=== PATIENT | female | born 1960 | race Caucasian/White ===

== ENCOUNTER 2017-12-21 05:27 | Day surgery (SDC) | payer OTHER, SELFPAY ==
--- NOTE | 2017-12-01 12:43 | PCM.HP.BLA ---
History and Physical DATE OF SURGERY: 12/21/2017 SCHEDULED PROCEDURE: Right Carpal Tunnel Release HISTORY OF PRESENT ILLNESS: This is a 57-year-old female who has had ongoing pain with numbness and tingling in her right hand for approximately 10 years. Patient is right-hand dominant. Patient underwent an EMG nerve conduction study exam in 2008 and did reveal carpal tunnel syndrome. Patient states the numbness and tingling has become worse and has progressed over the past several years. Her pain at rest is 2/10, 4/10 on average, and 6/10 at worst. Patient has tried Velcro cockup wrist braces in the past which were helpful initially but she has not seen any significant relief using them now. The numbness and tingling does wake her at night. Numbness and tingling isn't in the median nerve distribution including the right index, right middle, and right ring finger. She denies any trauma or injury. Patient has had previous cervical neck cyst removed in the past. Patient has also had a previous trigger finger release of the right thumb. Patient currently denies any chest pain, shortness of breath, fevers chills, recent infections. Patient has medical history pertinent for type 2 diabetes mellitus, hypertension, history of blood clot, and sleep apnea. She has had previous thyroid cancer in which a thyroidectomy in 2005. After failure of conservative measures the patient would like to proceed with a right carpal tunnel release. REVIEW OF SYSTEMS: ROS: Const: Denies anorexia, change in appetite, fever, hard of hearing, vision problems and weight change. CV: Denies chest pain, heart murmur, irregular heartbeat and peripheral vascular disease. Resp: Denies asthma, cough, pneumonia, sleep apnea, SOB, tuberculosis and wheezing. GI: Denies constipation, diarrhea, difficulty swallowing, heartburn, nausea, bloody stools and vomiting. : Genital: reports irregular menstrual periods. Urinary: denies incontinence. Musculo: Denies leg swelling, limp, trouble walking and weakness. Skin: Denies Raynaud's, history of shingles and tattoo. Neuro: Reports numbness/tingling but denies ambulatory dysfunction, dizziness and tremor. Psych: Reports anxiety, but denies depression, insomnia, mental illness and stress. Mc/Lymph: Denies anemia, bleeding/bruising tendency and past transfusion. Reviewed, no changes. PAST MEDICAL HISTORY: Advance Care Plan: No Advance Directives Effective Date: 01/06/2017 PMH: Medical Problems: Arthritis, Diabetes, Thyroid Disease, Psoriasis, Cancer, High Blood Pressure, History Of Phlebitis, Sleep Apnea Accidents: Fracture - (1996) LT ANKLE - STEPPED IN A HOLE Surgical Hx: Thyroidectomy - (2005) CANCER, [facility] LT De[employer] Release - (03/04/2009) [email or web address] Ovaries Removed, LT Heel Bone Spur RT Thumb Trigger Release - (04/01/2016) [email or web address]@[facility] Manipulation Shoulder Under Anes LT - (03/02/2017) [email or web address]@[email or web address] Anesthesia Complications: None Assistive Devices: None Reviewed, no changes. 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 Personal Habits: Cigarette Use: Never.Alcohol: Denies use.Drug Use: Denies Use.Enjoy Exercising: Exercises 1-3 X/Week. Reviewed, no changes. VITALS: Ht: 68 Wt: 214lb Wt k.070 BMI: 32.5 BP: 123/80 Pulse: 88 Resp: 16 T: 98 T: 36.7C ALLERGIES: Penicillins - Throat Swelles Shut - Anaphalactic Vancomycin MEDICATIONS: Tramadol HCL 50 mg 1-2 by mouth every 6 hours as needed pain, Effexor 225 mg 1 tab PO daily, Enalapril Maleate 10 mg 1 tab PO bid, Gabapentin 300 mg 1 cap PO qam,2 cap AT lunch,2 caps AT supper and 1 cap AT bedtime, Synthroid 50 mcg 1 tab PO daily, Farxiga 10 mg 1 tab PO daily, Metformin HCL 500 mg 1 tab PO bid, Meloxicam 15 mg 1 by mouth every day PRE-OP EXAM: General appearance:NORMAL Other: Eyes: Conjunctivae and lids: NORMAL Pupils: ERR Ears, Nose, Mouth, and Throat: NORMAL Other: Inspection of lips, teeth and gums: NORMAL Other: Neck: Examination of neck: no masses noted. Respiratory: Assessment of respiratory effort: NORMAL Other: Auscultation of lungs: clear to auscultation no wheezes, rhonchi or rales. Cardiovascular: Auscultation of heart: regular rate and rhythm, no murmurs, gallops or rubs. Exam of carotid arteries: NORMAL Other: Gastrointestinal: Exam of abdomen: soft, nontender, nondistended bowel sounds present. PHYSICAL EXAMINATION: Patient is alert and oriented ?3 in no acute distress. Patient's right hand is cool to touch without erythema. There is minimal atrophy of the right thenar eminence. Patient has decreased sensation on the right hand in the median nerve distribution. Patient has full composite fist and full extension of fingers. Full range of motion of right wrist. Patient has a positive carpal compression exam, positive Phalen's exam, and positive Tinel's at the wrist on the right. Negative Tinel's at the right elbow. Negative Spurling's bilaterally. 2 point discrimination in the median nerve distribution is 7-8 mm and 5 mm in the ulnar nerve distribution. IMAGING STUDIES: Previous EMG nerve conduction study exam was performed in 2008 which did reveal right carpal tunnel syndrome. IMPRESSION: 1. Right carpal tunnel syndrome 2. Type 2 diabetes mellitus 3. Hypertension 4. History of blood clots 5. Sleep apnea 6. Psoriasis 7. History of thyroid cancer PLAN: I did discuss and review with the patient all treatment options including surgical versus nonsurgical options. Patient does wish to proceed with the above-stated procedure. Potential risks, benefits, and complications of the procedure were discussed in detail including but not limited to , infection, nerve and blood vessel damage, persistent pain, numbness, tingling, paresthesias, blood clot, pulmonary embolism, and requirement for possible further surgery. The patient expressed full understanding and has no further questions for the doctor. Patient does agree to proceed with the above-stated procedure and has signed the surgery consent form. This dictation was created using voice recognition software. Phonetic and/or grammatical errors may exist. ___ I have re-examined the patient. There are no clinical changes since date of exam. ___ See progress notes for changes. ___ Dictated on admission Date: Time: Signature:
[2017-12-21 05:47] VITALS: BP 126/74; PULSE 86; RESP 16; TEMP 37.2; O2SAT 98; BMI 34.0
[2017-12-21 05:54] VITALS: BMI 34.0
[2017-12-21 06:11] LABS: Bedside Glucose 173 mg/dL (70-110)
--- NOTE | 2017-12-21 07:10 | OP.PCM_ITS ---
Report of Operation Date of Procedure: 12/21/17 Pre-Operative Diagnosis: Right carpal tunnel syndrome Post-Operative Diagnosis: Right carpal tunnel syndrome Surgery/Procedure Performed:: Right carpal tunnel release Description of Surgical Findings:: Complete release transverse carpal ligament insole department worker: None Type of Anesthesia:: Block,[address] Anesthesiologist: Carlos Yo Special Medications: Clindamycin Estimated Blood Loss (mL): 2 Fluids Replaced: 300 mL crystalloid Description of Procedure: Brief history operative indications: 57-year-old female who failed conservative treatment for right carpal tunnel syndrome. Patient wished to proceed with right open carpal tunnel release. After discussing risks and benefits including but not limited to blood loss, DVTs, PEs, neurovascular damage, infection, hematoma and general risk of anesthesia, the patient demonstrated understanding wish to proceed with right open carpal tunnel release Procedure: On the date of the procedure, the patient's right upper extremity was marked in the preoperative area. Patient was taken back to the operating room, where the tourniquet was placed on the right upper extremity. Patient was given light sedation. All bony prominences are identified well-padded. Anesthesia assumed control C-spine and airway and remained in control throughout the remainder the procedure. [address] block was administered by anesthesia. The right upper extremity was prepped in sterile fashion. Surgeon then scrub. Upon reentering the room, the right upper extremity was prepped in a standard orthopedic fashion. A timeout was called and everyone agreed upon the side, the site, the procedure to be performed, patient identity and antibiotics given. The incision was marked out. Incision was taken at the skin subtenons tissue fat down to fascia. Fascia was then lightly tethered until the median nerve was visible. A [place] was placed proximally and distally, and then scissors were placed proximally and distally to release the transverse carpal ligament. During the release the others were never completely closed. The [place] was then placed proximally and distally once more to verify the transverse carpal ligament had been adequately released. The wound was then copiously irrigated out with normal saline. Wound was then closed using 3-0 nylon suture. 10 cc of 50-50 mixture of 1% lidocaine and 0.5% Sensorcaine without epinephrine injection was given. Xeroform dressing was placed, sterile dressing was placed, compressive dressing was placed. Tourniquet was let down. Volar splint was placed. Patient was awakened by anesthesia and transferred to the PACU for recovery. Postoperative plan: The patient will follow up in 2 weeks for removal splint removal sutures. At that time if they are doing well they will follow-up as needed. - Complications None - Admit VTE Documentation VTE Present on Admission: No VTE Mechan Device Prophylaxis: SCD's, Thigh High ANAHY Kebede VTE Pharm Prophylaxis ordered?: No Reason prophylaxis not ordered:: Treatment Not Indicated
[2017-12-21] MEDS: Bupivacaine Mpf 0.5% 30 ML VIAL (07:25)
[2017-12-21 07:35] VITALS: BP 105/76; BP 126/74; PULSE 91; RESP 18; TEMP 36.8; O2SAT 99
[2017-12-21 07:40] VITALS: BP 107/75; BP 126/74; PULSE 87; RESP 18; O2SAT 93
[2017-12-21 07:45] VITALS: BP 112/77; BP 126/74; PULSE 86; RESP 16; O2SAT 94
[2017-12-21 07:51] VITALS: BP 111/74; BP 126/74; PULSE 81; RESP 16; TEMP 36.4; O2SAT 96
[2017-12-21 08:03] VITALS: BP 126/74
== END 2017-12-21 08:12 | disposition home or self-care (01) ==
LOC: SDC 05:28 → AC 05:29
PROVIDERS: Family Provider Family Medicine; PCP Family Medicine; Referring Provider Specialist; Visit Provider Specialist
PROC: (CPT 64721; principal; 2017-12-21 07:00)
DX: G56.01 Carpal tunnel syndrome, right upper limb (principal); E11.9 Type 2 diabetes mellitus without complications; I10 Essential (primary) hypertension; L40.9 Psoriasis, unspecified; M19.90 Unspecified osteoarthritis, unspecified site; G47.30 Sleep apnea, unspecified; F32.9 Major depressive disorder, single episode, unspecified; F41.9 Anxiety disorder, unspecified; Z79.82 Long term (current) use of aspirin; Z79.899 Other long term (current) drug therapy; Z78.0 Asymptomatic menopausal state; Z85.850 Personal history of malignant neoplasm of thyroid; Z86.718 Personal history of other venous thrombosis and embolism
CPT/HCPCS: 01810; 64721; 82962; J7120

== ENCOUNTER → 2018-11-29 08:02 | Outpatient (CLI) | payer OTHER, SELFPAY ==
--- NOTE | 2018-11-29 14:16 | NEURO_ITS ---
NCS and/or EMG Patient Report Ordering Doctor: Huber Wilhelm DATE OF SERVICE: 11/29/18 Misti Short is a 58 year old female who presents for electrodiagnostic testing of the left upper limb. She reports numbness and tingling in the left hand. Electrodiagnostic findings: Left median motor nerve demonstrates prolonged distal latency with normal amplitude and reduced conduction velocity. Normal left ulnar motor response. Borderline prolonged left median F-wave. Prolonged left median sensory latency at the wrist. Prolonged left median palmar latency. Normal left ulnar and radial sensory responses. On needle EMG, all muscles tested in the left upper limb showed no evidence of denervation with normal mo tor unit action potentials. Electrodiagnostic impression: This is an abnormal study. 1. Electrodiagnostic findings demonstrate left-sided median mononeuropathy. This is consistent with a moderate left carpal tunnel syndrome If there are any further questions, please do not hesitate to contact me
== END ==
PROVIDERS: Family Provider Family Medicine; PCP Family Medicine; Referring Provider Physician Assistant; Visit Provider Physician Assistant
DX: R20.2 Paresthesia of skin (principal)
CPT/HCPCS: 95886; 95910

== ENCOUNTER → 2018-12-05 14:45 | Outpatient (CLI) | payer OTHER, SELFPAY ==
--- NOTE | 2018-12-05 15:26 | EKG12_ITS ---
Test Reason : PRE OP Blood Pressure : / mmHG Vent. Rate : 098 BPM Atrial Rate : 098 BPM P-R Int : 148 ms QRS Dur : 066 ms QT Int : 340 ms P-R-T Axes : 033 025 045 degrees QTc Int : 434 ms Normal sinus rhythm Low voltage QRS Septal infarct , age undetermined Abnormal ECG Confirmed by EVELYN JOSHI ([id number]), avid editor LOPEZ MAZA ([id number]) on 12/08/2018 10:26:00 AM Referred By: Huber Wilhelm Confirmed By:EVELYN JOSHI
[2018-12-05 15:56] LABS: Hematocrit 46.5 % (37-47); Mean Corp Hgb Conc 32.3 g/dL (32-36); Mean Corpuscular Hgb 29.8 pg (27.0-32.0); Mean Corpuscular Volume 92.4 fL (81-99); Mean Platelet Vol. 9.9 fl (6.2-12.0); Platelet Count 301 K/mm3 (150-450); RBC Distribution Width CV 12.6 % (11.6-14.6); RBC Distribution Width SD 42.5 fl (35.1-43.9); Red Blood Count 5.03 M/mm3 (4.2-5.4); White Blood Count 9.3 K/mm3 (4.4-11.0)
[2018-12-05 16:14] LABS: Anion Gap 6 (5-15); BUN 13 mg/dL (7-18); BUN/Creat Ratio 13.2 RATIO (10-20); Calcium,Total 9.1 mg/dL (8.5-10.1); Chloride 103 mmol/L (98-107); Creatinine, Serum 0.98 mg/dL (0.55-1.02); EST Glomerular Filtration Rate 62 mL/min (>60); Est Glom Filt Rate - Afr Amer 75 mL/min (>60); Glucose 177 mg/dL (74-106); Sodium Level 137 mmol/L (136-145)
[2018-12-05 16:24] LABS: Hemoglobin A1c 7.7 % (4.2-6.3)
== END ==
PROVIDERS: Family Provider Family Medicine; PCP Family Medicine; Referring Provider Physician Assistant; Visit Provider Physician Assistant
DX: Z01.818 Encounter for other preprocedural examination (principal); Z01.810 Encounter for preprocedural cardiovascular examination
CPT/HCPCS: 36415; 80048; 83036; 85027; 93005

== ENCOUNTER → 2019-11-01 09:11 | Outpatient (CLI) | payer OTHER, SELFPAY ==
--- NOTE | 2019-11-01 09:13 | RAD_ITS ---
PROCEDURE: Fluoroscopic guided Hip Injection DATE: 11/01/2019. INDICATION: Female, 58 years old. Chronic hip pain. PHYSICIAN: Maxime Saucedo M.D. MEDICATIONS: 6 mg of BETAMETHASONE and 3 cc of 1% LIDOCAINE. 2% lidocaine administered subcutaneously for local anesthesia. ACCESS SITE: Left hip. NEEDLE: 22-gauge spinal needle. FLUOROSCOPY TIME (if supplied): (1:00) minutes/seconds FINDINGS: The risks, benefits, and alternatives to the procedure were explained to the patient. The specific risks of bleeding, infection, and neurovascular injury were detailed and accepted. Witnessed informed consent was obtained. A 22-gauge spinal needle was positioned under radiographic fluoroscopic localization. Approximately 2 cc of ISOVUE-300 instilled for localization purposes. Medication was then injected. The patient tolerated the procedure well without any immediate complications. RAD/Inj/Asp [place] Jt Should/Hip/Knee IMPRESSION: 1. Successful fluoroscopic guided hip injection. Electronically Signed: Maxime Saucedo, at 10:32 EDT , Service support ,
== END ==
PROVIDERS: PCP Family Medicine; Referring Provider Registered Nurse; Visit Provider Registered Nurse
DX: M16.12 Unilateral primary osteoarthritis, left hip (principal)
CPT/HCPCS: 20610; 77002; Q9967; J0702

== ENCOUNTER → 2021-02-11 | Outpatient (CLI) | payer OTHER, SELFPAY | END | disposition home or self-care (01) | PROVIDERS: PCP Family Medicine; Referring Provider Family Medicine; Visit Provider Family Medicine | DX: U07.1 COVID-19 (principal) | CPT/HCPCS: 87635; U0005; U0003 ==

== ENCOUNTER 2021-02-16 14:36 | Outpatient (CLI) | payer OTHER, SELFPAY ==
[2021-02-16 14:42] VITALS: BMI 32.1
[2021-02-16] MEDS: 0.9% Saline Lock 10 ML Syringe IV (14:48)
[2021-02-16 16:01] VITALS: BP 125/77; PULSE 88; RESP 16; TEMP 37.1; O2SAT 95
[2021-02-16 16:51] VITALS: BP 140/90; PULSE 84; RESP 16; TEMP 36.6; O2SAT 96
== END 2021-02-16 17:03 | disposition home or self-care (01) ==
LOC: MS3OUT 14:37 → MS3 14:38
PROVIDERS: PCP Family Medicine; Referring Provider Nurse Practitioner Adult Health; Visit Provider Nurse Practitioner Adult Health
DX: Z23 Encounter for immunization (principal); U07.1 COVID-19
CPT/HCPCS: J7050; M0245; Q0245; A4216

== ENCOUNTER → 2021-11-30 | Outpatient (CLI) | payer OTHER, SELFPAY ==
--- NOTE | 2021-11-30 13:38 | EKG12_ITS ---
Test Reason : PREOP Blood Pressure : / mmHG Vent. Rate : 088 BPM Atrial Rate : 088 BPM P-R Int : 138 ms QRS Dur : 076 ms QT Int : 384 ms P-R-T Axes : 033 005 050 degrees QTc Int : 464 ms Normal sinus rhythm Normal ECG Confirmed by EDEN PEREZ, JUAN JOSE ([id number]), department editor MINESH BARRERA ([id number]) on 12/01/2021 9:17:34 AM Referred By: DAVINA Confirmed By:JUAN JOSE HARMON MD
[2021-11-30 14:35] LABS: Mean Corp Hgb Conc 32.6 g/dL (32-36); Mean Corpuscular Hgb 30.1 pg (27.0-32.0); Mean Corpuscular Volume 92.5 fL (81-99); Mean Platelet Vol. 9.8 fl (6.2-12.0); Platelet Count 321 K/mm3 (150-450); RBC Distribution Width CV 12.7 % (11.6-14.6); RBC Distribution Width SD 43.3 fl (35.1-43.9); Red Blood Count 4.65 M/mm3 (4.2-5.4); White Blood Count 8.7 K/mm3 (4.4-11.0)
[2021-11-30 16:42] LABS: Anion Gap 7 (5-15); BUN 12 mg/dL (7-18); BUN/Creat Ratio 15.2 RATIO (10-20); Calcium,Total 9.2 mg/dL (8.5-10.1); Chloride 106 mmol/L (98-107); Creatinine, Serum 0.79 mg/dL (0.55-1.02); EST Glomerular Filtration Rate 79 mL/min (>60); Est Glom Filt Rate - Afr Amer 96 mL/min (>60); Glucose 118 mg/dL (74-106); Potassium 4.1 mmol/L (3.5-5.1); Sodium Level 141 mmol/L (136-145)
== END | disposition home or self-care (01) ==
LOC: PSN 13:26
PROVIDERS: PCP Family Medicine; Visit Provider Physician Assistant Surgical
DX: Z01.810 Encounter for preprocedural cardiovascular examination (principal)
CPT/HCPCS: 36415; 80048; 85027; 93005

== ENCOUNTER 2022-05-14 13:00 | Outpatient (RCR) | payer OTHER, SELFPAY ==
--- NOTE | 2022-04-16 13:43 | HP.PTEVAL ---
Patient's Visit Information PRABHU NEVILLE is a 61 year old F referred to Physical Therapy by Dr. Jake Kumari DO with a diagnosis of L trochanteric bursitis. Date of Evaluation: 04/16/22 Physical Therapist: Ahsan Velasquez, DPT, OCS, CSCS - Visit Plan Frequency: 3x /Week Duration: 4-6 Weeks Plan: 3x/week for 3-6 weeks. Please start with non thermal US to LK trochanteric bursa are, rollout to ITB and stretch ITB and quad and HS. progress to hip mat strength at home and then to gym based general strength for LE, core, UE machines and work to I as patient wishes to join as a member upon d/c - Subjective L hip is hurting. Laterally and posterior hurt. Insidiously. Hurting 4 years. One time unable to get off tractor but not often. It was worsening last fall. Worse in the summertime when more active. Had a family dinner when she was on feet alot. Steps are painful but not horrible. 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 Sleep: Cannot lie on left side. Seldom keeps her awake(1x in 3 months after being outside alot.). Basic aDLs are OK. Gardening is hobby and chasing grandkids and can karyna grandkids. Worse after wards. No regular exercises. had injections in hip at one point and did not help in joint. Wants to join and get program. - Pain L hip\ Pain Intensity (Out of 10): 1 Pain Intensity Range: 0, 3 - Objective No antalgia in i gait today. Trasnfers bed and chair I. steps reciprocal with one rail without discomfort today. LB AROM WFL and without pain. Hip AROM is WFL, tightness max in ITB, mod in quad/psoas, min in HS and mod in Piriformis B.Knee and ankle AROM WFL. PROM Hips symmetrical and without major limitations, IR on L hip is painful, + FADDIR, _ scour, - KAYODE. strength in hips is 3+ abd and ext, 4- flexion, no pain. knee and ankles 4/5 without pain. Tender to palpation over L trochanteric bursa area max, not as bad into ITB and not on the right. _ slump, - SLR - Balance/Special Test Scores Lower Extremity Functional Score: 71 - Goals Goal 1:: I management of torchanteric bursitis including home stretches and gym based LE and core adn general UE strength. Goal Time Frame: 4-6 Weeks Goal 2:: Patient feel pain 80% better and 1/10 at worst Goal Time Frame: 4-6 Weeks Goal 3:: Get up at work without pain Goal Time Frame: 4-6 Weeks Goal 4:: Sleep without interruption at night. Goal Time Frame: 4-6 Weeks Goal 5:: Pt feel she has a good machine workout that she can continue I with list Goal Time Frame: 4-6 Weeks - Rehabilitation Potential Physical Therapy Diagnosis: L trochanteric bursitis Rehabilitation Potential: Good - Anticipated Interventions Patient/Client Instruction: Educate patient on: Condition, Plan of Care For the Purpose of:: To decrease pain, To increase ROM, To improve nutrient delivery to tissue, To improve muscle performance and motor function, To increase tolerance to activity/condition/position, To improve ability of physical actions for home/community/work/leisure Therapeutic Exercise to Include: Strength training, Flexibilty training For the Purpose of:: To decrease pain, To decrease swelling/inflammation, To improve nutrient delivery to tissue, To improve muscle performance and motor function Manual Therapy Techniques to Include: Soft tissue mobilization For the Purpose of:: To decrease swelling/inflammation, To improve nutrient delivery to tissue Ultrasound (thermal/non thermal): Yes - nonthermal For the Purpose of:: To decrease pain, To decrease swelling/inflammation Thank you for the opportunity to evaluate your patient. For Medicare and Medicare HMO plans, please review the plan of care and approve it. It will need to be FAXED BACK to us at [phone] for Medicare purposes. For Medicare only, by signing this I certify the plan of care. Please let me know if there are questions or concerns regarding this plan of care. Physician Signature: Date:
--- NOTE | 2022-05-14 13:39 | HP.PTDCSUM ---
It has been my pleasure to treat PRABHU NEVILLE referred by Dr. Jake Kumari DO, with the diagnosis of L trochanteric bursitis for a total of 9 visit(s). Discharge Date: 05/14/22 Please see the following information for a summary of their discharge status. Subjective: I am ready to be done. [place] the machines that she will continue on her own. Pain level is 1/10 at most, still needs to loosen in the morning. Stretches really help. L hip\ Pain Intensity (Out of 10): 1 % Improvement: 95 Objective/Function: No tenderness in hip, walking normally without abnormalities Goal 1:: I management of torchanteric bursitis including home stretches and gym based LE and core adn general UE strength. Goal Progress: Goal Met Goal 2:: Patient feel pain 80% better and 1/10 at worst Goal Progress: Goal Met Goal 3:: Get up at work without pain Goal Progress: Goal Met Goal 4:: Sleep without interruption at night. Goal Progress: Goal Met Goal 5:: Pt feel she has a good machine workout that she can continue I with list Goal Progress: Goal Met Plan: d/c Discharge Comments: To continue in gym and stretch at home and contact doctor if pain returns. If there are questions or concerns regarding this patient's physical therapy, please feel free to call me at [phone]. Thank you for the referral of this patient. Sincerely, Ahsan Velasquez, DPT, OCS, CSCS Balance/Gait/Functional tests - Balance/Special Test Scores Lower Extremity Functional Score: 73
== END 2022-05-14 19:00 | disposition home or self-care (01) ==
LOC: PT 13:00
PROVIDERS: PCP Family Medicine; Referring Provider Orthopaedic Surgery; Visit Provider Orthopaedic Surgery
DX: M70.62 Trochanteric bursitis, left hip (principal); M76.32 Iliotibial band syndrome, left leg
CPT/HCPCS: 97110; 97140; 97161; 97164

== ENCOUNTER 2022-09-22 08:21 | Emergency (ER) | payer OTHER, SELFPAY ==
[2022-09-22 08:21] VITALS: BP 128/86; PULSE 80; RESP 14; TEMP 36.6; O2SAT 98; BMI 27.3
--- NOTE | 2022-09-22 09:14 | US_ITS ---
STUDY: ABDOMINAL ULTRASOUND - RIGHT UPPER QUADRANT REASON FOR VISIT: Female, 61 years old . Right upper quadrant pain. TECHNIQUE: Ultrasound evaluation of the right upper quadrant was performed with real-time and static parada-scale imaging. TECHNICAL QUALITY: Adequate. COMPARISON: None. FINDINGS: Liver: The liver measures is enlarged and 17.5 cm. There is increased echogenicity consistent with fatty infiltration. The bile ducts are within normal limits. There is hepatic color flow. The direction of portal flow is hepatopetal. Focal fatty sparing is seen in the periportal region measuring 2.7 cm x 1.6 cm x 1.1 cm. Gallbladder: Normal distended gallbladder. The gallbladder wall measures 2.0 mm. There is a negative sonographic Bliss''s sign. There is no pericholecystic fluid. There are multiple echogenic structures within the gallbladder, consistent with multiple gallstones. Common Bile Duct (C.B.D.): The common bile duct measures 4.3 mm. Pancreas: Normal size of the head, body and tail of the pancreas. There is increased echogenicity of the pancreas. There is no demonstrated pancreatic mass or cyst. Right Kidney: Normal size of the right kidney. The right kidney measures 12.2 cm x 7 cm x 5 cm. Normal renal cortex. The right cortex measures 1.6 cm. There is no demonstrated renal mass or cyst. There is no right hydronephrosis. US/Gallbladder IMPRESSION: Mild hepatomegaly and diffuse fatty infiltration of the liver with focal fatty sparing. Multiple gallstones. Electronically Signed: Maxime Saucedo MD at 10:56 EDT ,
--- NOTE | 2022-09-22 09:15 | EKG12_ITS ---
Test Reason : Blood Pressure : / mmHG Vent. Rate : 071 BPM Atrial Rate : 071 BPM P-R Int : 136 ms QRS Dur : 088 ms QT Int : 404 ms P-R-T Axes : 017 033 050 degrees QTc Int : 439 ms Normal sinus rhythm Normal ECG Confirmed by DAWN PEREZ, KIRK ([id number]), editor news MINESH BARRERA ([id number]) on 09/24/2022 1:23:31 PM Referred By: IDRIS Confirmed By:LIBERTY SEYMOUR MD
--- NOTE | 2022-09-22 09:15 | ED.VIS.GI ---
HPI HPI - GI History of Present Illness Chief Complaint: Abd Pain Informant: patient Abdominal Pain/Flank Pain Onset: Yesterday Context: Gradual Onset Timing: Continuous Quality: Aching and Dull Location: Epigastric and RUQ Worsened by: Nothing Relieved by: Nothing Nausea/Vomiting/Emesis GI Symptom: Positive for Nausea and Vomiting Quality: Positive for Nonbilious; Negative for Blood streaks, Coffee ground or Hematemesis Diarrhea/Melena/Hematochezia GI Symptom: Negative for Diarrhea, Melena or Hematochezia Associated Symptoms Associated Symptoms: Negative for Dysuria, Frequency or Hematuria Narrative Narrative: Patient presents with abdominal pain that began last night. Patient states that has gradually gotten worse. Patient states the pain is over the epigastric area and radiates to the right upper quadrant and around to her back. Patient describes the pain as dull and aching. Patient states nothing makes it better nothing makes it worse. Patient admits to some nausea and vomiting. Patient denies any diarrhea, melena, or hematochezia. Patient denies any dysuria, hematuria, or frequency. Patient denies any fevers or chills. [facility] Medical History Diabetes mellitus History of blood clots Hx of thyroid cancer Hypertension Home Medications antiarthritic combination no.2 900 mg tablet (glucosamine-chondroitin) 1 tab PO DAILY SUPPLEMENT 01/24/15 [History Last Taken Unknown] enalapril maleate 20 mg tablet (Vasotec) 20 mg PO BID BP 01/24/15 [History Last Taken 01/31/15 05:00] venlafaxine 150 mg capsule,extended release 24 hr 150 mg PO DAILY 01/24/15 [History Last Taken Unknown] amitriptyline 75 mg tablet 75 mg PO DAILY 03/01/22 [History Last Taken Unknown] gabapentin 600 mg tablet 600 mg PO Q8H 03/01/22 [History Last Taken Unknown] meloxicam 15 mg tablet 15 mg PO DAILY 03/01/22 [History Last Taken Unknown] pravastatin 80 mg tablet 80 mg PO DAILY 03/01/22 [History Last Taken Unknown] levothyroxine 137 mcg tablet (Synthroid) 137 mcg PO DAILY THYROID 09/22/22 [History Last Taken Unknown] semaglutide 2 mg/dose (8 mg/3 mL) subcutaneous pen injector (Ozempic) 2 mg subcut SA 09/22/22 [History Last Taken Unknown] Allergy/AdvReac Type Severity Reaction Status Date / Time Penicillins [PCN] Allergy Anaphylaxis Verified 09/22/22 08:22 vancomycin Allergy Anaphylaxis Verified 09/22/22 08:22 Surgical History History of carpal tunnel release of both wrists Hx of oophorectomy Hx of thyroidectomy Social History Smoking Status: Never smoker alcohol intake: never ROS ROS ED Constitutional Constitutional ED: Denies chills or fever(s) Eyes Eyes: Denies blurry vision or change in vision ENT ENT ED: Denies rhinorrhea or sore throat Cardiovascular Cardiovascular: Denies chest pain or palpitations Respiratory/Chest Respiratory/Chest: Denies cough or dyspnea Gastrointestinal Gastrointestinal: Reports abdominal pain, nausea and vomiting Genitourinary Genitourinary ED: Denies dysuria or hematuria Musculoskeletal Musculoskeletal: Reports back pain; Denies neck pain Integumentary Denies abscess or rash Neurologic Neurologic: Denies headache(s) or weakness Allergic/Immunologic Allergic/Immunologic ED: Denies mouth swelling or urticaria EXAM Physical Exam Const Vital Signs: 09/22/22 08:21 09/22/22 11:16 Temperature 97.9 F Temperature Source Temporal Pulse Rate 80 76 Respiratory Rate 14 18 Blood Pressure 128/86 H Blood Pressure Mean 100 Pulse Ox 98 100 Oxygen Delivery Method Room Air Room Air Positive well nourished and well developed General Appearance ED: well developed HEENT Reports moist mucous membranes Neck supple and no JVD Resp normal respiratory effort and clear to auscultation bilaterally Cardio regular rate, regular rhythm and no murmurs GI normal to inspection, nondistended, normoactive bowel sounds Palpation: soft and tender epigastric and RUQ; Negative for guarding or rebound tenderness present Extremity normal to inspection General Extremety ED: Negative for edema or tenderness General Extremity: Negative for edema Neuro oriented x3, CN's II-XII intact bilaterally, moves all extremities and no sensory deficits noted Sensorium / Orientation: alert Motor Exam: strength 5/5 throughout Psych mental status grossly normal Skin no rashes or lesions noted MDM MDM MDM Narrative Medical decision making narrative: Differential diagnosis includes gastritis, cholecystitis, cholelithiasis, pancreatitis, peptic ulcer disease, duodenal ulcer, cardiac dysrhythmia, cardiac ischemia, pyelonephritis, and urinary tract infection. EKG will be obtained to assess for cardiac dysrhythmia and cardiac ischemia. CBC will be obtained to assess for leukocytosis and anemia. Comprehensive metabolic profile will be obtained to assess for hepatic function, renal function, and electrolyte abnormality. Lipase will be obtained to assess for pancreatitis. Urinalysis will be obtained to assess for urinary tract infection. Right upper quadrant ultrasound will be obtained to assess for cholecystitis and cholelithiasis. Lab Data Attestation: I reviewed the patient's lab results. Lab results narrative: CBC was reviewed and was within normal limits. Comprehensive metabolic profile was reviewed. Total bilirubin was slightly elevated at 1.3. AST was elevated at 1283. ALT was elevated at 728. Lipase was reviewed and was normal. Urinalysis was reviewed. There is no evidence of urinary tract infection or hematuria. Labs: Laboratory Results - last 24 hr 09/22/22 09/22/22 08:55 10:41 WBC 8.9 RBC 4.56 Hgb 13.8 Hct 42.4 MCV 93.0 MCH 30.3 MCHC 32.5 RDW Std Deviation 43.1 RDW Coeff of Charan 12.6 Plt Count 291 MPV 10.8 Immature Gran % (Auto) 0.300 Neut % (Auto) 84.5 H Lymph % (Auto) 7.1 L [place] % (Auto) 6.3 Eos % (Auto) 1.0 Baso % (Auto) 0.8 Absolute Neuts (auto) 7.5 Absolute Lymphs (auto) 0.63 L Nucleated RBC % 0 Sodium 141 Potassium 4.0 Chloride 106 Carbon Dioxide 31.0 Anion Gap 4 L BUN 15 Creatinine 0.84 Estim Creat Clear Calc 71.85 Est GFR (MDRD) Af Amer 89 Est GFR (MDRD) Non-Af 73 BUN/Creatinine Ratio 17.8 Glucose 173 H Calcium 8.9 Total Bilirubin 1.30 H AST 1283 H ALT 728 H Alkaline Phosphatase 71 Total Protein 7.0 Albumin 3.8 Globulin 3.2 Albumin/Globulin Ratio 1.2 Lipase 47 Urine Color Yellow Urine Clarity Cloudy Urine pH 7.0 Ur Specific [place] 1.015 Urine Protein 15 H Urine Glucose (UA) Normal Urine Ketones Negative Urine Occult Blood Negative Urine Nitrite Negative Urine Bilirubin Negative Urine Urobilinogen 4 H Ur Leukocyte Esterase 25 H Urine RBC 0 SEEN Urine WBC 0-5 SEEN Ur Squamous Epith Cells 0-5 SEEN Amorphous Sediment 2+ Urine Bacteria 1+ Urine Mucus 0 SEEN Radiography Diagnostic Testing: Clinical Impression(s) from Imaging Studies Gallbladder Ultrasound 09/22/22 09:14 IMPRESSION: Mild hepatomegaly and diffuse fatty infiltration of the liver with focal fatty sparing. Multiple gallstones. Electronically Signed: Maxime Saucedo MD at 10:56 EDT , Right upper quadrant ultrasound was obtained. There is mild hepatomegaly and diffuse fatty infiltration of the liver. There are multiple gallstones noted. There is no gallbladder wall thickening. There is no ductal dilatation. There is no pericholecystic fluid. This was interpreted by the radiologist was also independently reviewed by myself. EKG Initial EKG: Attestation: I personally reviewed and interpreted this EKG as follows: Interpretation: Sinus Rhythm (71) and No Acute Injury Pattern Comments: EKG was obtained. On my independent interpretation, it showed a normal sinus rhythm with a rate of 71. [place] interval, QRS interval, and QTc intervals were all normal. [place] was normal. There are no acute ST or T wave changes. Prior EKG tracings: available for review Prior: Unchanged (11/30/2021) Treatment and Re-Evaluation :: Patient was given IV fluids, morphine, and Zofran. Patient is feeling better on reevaluation. Patient was advised of her findings. Case was discussed with Dr. Fritz. She will follow-up with the patient for her gallstones. She does not feel that the transaminitis is due to gallstones. It is more likely due to hepatitis. She recommended obtaining a hepatitis panel and having the patient follow-up with her PCP for further evaluation of that. Patient was given a prescription for [place]. Patient was instructed to avoid fried foods, fatty foods, and greasy foods. Patient was instructed to return if worse in any way. Patient understood and was agreeable with the plan. All questions were answered. Discharge Plan Triage Chief Complaint: Abd Pain ED Provider: Schwiger,Ahsan Dx/Rx/DC Orders Clinical Impression: Right upper quadrant abdominal pain, Transaminitis, Cholelithiasis Instructions: ED Abdominal Pain Unkn Cause Fem, ED Abdominal Pain Gallstone Poss Prescriptions: No Action pravastatin 80 mg tablet 80 mg PO DAILY meloxicam 15 mg tablet 15 mg PO DAILY gabapentin 600 mg tablet 600 mg PO Q8H amitriptyline 75 mg tablet 75 mg PO DAILY enalapril maleate [Vasotec] 20 MG tablet 20 mg PO BID venlafaxine 150 MG capsule 150 mg PO DAILY glucosamine-chondroitin 900 MG tablet 1 tab PO DAILY levothyroxine [Synthroid] 137 mcg tablet 137 mcg PO DAILY Ozempic 2 mg/dose (8 mg/3 mL) pen injector 2 mg SUBCUT SA Primary Care Provider: Raymond Arec Referrals: Raymond Arce MD [Primary Care Provider] - 3-5 Days Marcela Fritz MD [Med Staff - Active Staff] - 5-7 Days Disposition Disposition: Home, Self Care Discharge Date/Time: 09/22/22 12:45
[2022-09-22] MEDS: Morphine 4 MG/ML Syringe IV (09:24)
[2022-09-22] MEDS: 0.9% Normal Saline 1,000 ML 1000 ML IV (09:24)
[2022-09-22] MEDS: Ondansetron 4 MG/2 ML Vial IV (09:24)
[2022-09-22 09:41] LABS: Absolute Lymphocyte Count 0.63 X10^3/uL (0.83-4.51); Absolute Neutrophil Count 7.5 X10^3/uL (2.0-7.7); Basophil# 0.07 X10^3/uL; Basophil% 0.8 % (0-1); Eosinophil# 0.09 X10^3/uL; Hematocrit 42.4 % (37-47); Hemoglobin 13.8 g/dL (12.0-15.0); Lymphocyte # 0.63 X10^3/ul (0.83-4.51); Lymphocyte % 7.1 % (19-41); Mean Corp Hgb Conc 32.5 g/dL (32-36); Mean Corpuscular Hgb 30.3 pg (27.0-32.0); Mean Platelet Vol. 10.8 fl (6.2-12.0); Monocyte# 0.56 X10^3/uL; Monocyte% 6.3 % (0-10); NRBC Flagged by Analyzer 0 % (0-5); Neutrophil # 7.49 X10^3/uL (2.7-7.7); Neutrophil % 84.5 % (47-70); Platelet Count 291 K/mm3 (150-450); RBC Distribution Width CV 12.6 % (11.6-14.6); RBC Distribution Width SD 43.1 fl (35.1-43.9); Red Blood Count 4.56 M/mm3 (4.2-5.4); White Blood Count 8.9 K/mm3 (4.4-11.0)
[2022-09-22 09:58] LABS: ALB/GLOB Ratio 1.2 RATIO (0.9-2.4); AST(SGOT) 1283 U/L (15-37); Alanine Aminotransfer ALT/SGPT 728 U/L (13-56); Albumin, Serum 3.8 g/dL (3.2-5.0); Alkaline Phosphatase 71 U/L (45-117); Anion Gap 4 (5-15); BUN 15 mg/dL (7-18); BUN/Creat Ratio 17.8 RATIO (10-20); Calcium,Total 8.9 mg/dL (8.5-10.1); Chloride 106 mmol/L (98-107); Creatinine, Serum 0.84 mg/dL (0.55-1.02); EST Glomerular Filtration Rate 73 mL/min (>60); Est Glom Filt Rate - Afr Amer 89 mL/min (>60); Estimated Creatinine Clearance 71.85 ml/min; Globulin 3.2 g/dL (2.2-4.2); Glucose 173 mg/dL (74-106); Lipase 47 U/L (13-75); Sodium Level 141 mmol/L (136-145)
[2022-09-22 11:16] VITALS: PULSE 76; RESP 18; O2SAT 100
[2022-09-22 11:19] LABS: Mucous, Urine 0 SEEN /hpf (<or=2+); Red Blood Cells-Urine 0 SEEN /hpf (0-5)
[2022-09-22 11:20] LABS: Color, Urine Yellow (Yellow); Glucose, Dipstick Normal (Normal); Ketone-Dipstick Negative (Negative); Leukocyte Esterase-Dipstick 25 /ul (Negative); Nitrite-Dipstick Negative (Negative); Occult Blood-Urine Negative /ul (Negative); Protein-Dipstick 15 mg/dl (Negative); Specific Gravity, Urine 1.015 (1.002-1.030); Urine Bilirubin Dipstick Negative (Negative); Urine Clarity Cloudy (Clear); Urine Urobilinogen 4 mg/dl (Normal)
[2022-09-22 11:27] LABS: Amorphous Sediment 2+; Bacteria 1+ /hpf (None Seen); Squamous Epithelial Cells - UA 0-5 SEEN /hpf (5-10); White Blood Cells 0-5 SEEN /hpf (0-5)
[2022-09-23 05:07] LABS: HEPATITIS B SURFACE AG Negative (Negative); Hep C Antibodies Non Reactive (Non Reactive); Hepatitis A IgM Antibody Negative (Negative); Hepatitis B Core AB IgM Negative (Negative)
== END 2022-09-22 12:45 | disposition home or self-care (01) ==
PROVIDERS: Emergency Provider Emergency Medicine; PCP Family Medicine; Visit Provider Emergency Medicine
DX: R10.11 Right upper quadrant pain (principal); E11.9 Type 2 diabetes mellitus without complications; K80.20 Calculus of gallbladder without cholecystitis without obstruction; R74.01 Elevation of levels of liver transaminase levels; I10 Essential (primary) hypertension; Z79.899 Other long term (current) drug therapy
CPT/HCPCS: 76705; 80053; 80074; 81001; 83690; 85025; 93005; 96361; 96374; 96375; 99283; J7030; A4216; J2405

== ENCOUNTER 2022-09-22 15:15 | Inpatient (IN) | payer OTHER, SELFPAY ==
[2022-09-22 15:16] VITALS: BP 92/55; PULSE 105; RESP 18; TEMP 36.6; O2SAT 100; BMI 28.0
[2022-09-22] MEDS: Ondansetron 4 MG/2 ML Vial IV (16:42)
[2022-09-22] MEDS: Morphine 4 MG/ML Syringe IV ×2 (16:42→18:15)
[2022-09-22] MEDS: 0.9% Normal Saline 1,000 ML 1000 ML IV (16:42)
--- NOTE | 2022-09-22 16:46 | EDS_ITS ---
HPI History of Present Illness Chief Complaint: Abd Pain Informant: patient Narrative Narrative: Patient presents with increasing abdominal pain nausea vomiting and weakness. I reviewed her prior visit. She was seen here earlier today. Her symptoms started last night about midnight. She had extensive evaluation including blood work. Hepatitis screen was sent off and I checked and it is not back. She also had ultrasound that showed gallstones but no sign of acute cholecystitis. She went home. She tried to eat and drink. She just had some water and a banana. She ended up having increasing pain vomiting. When she vomited she actually got lightheaded may have passed out for a moment. She is complaining of more pain in the right upper quadrant. She has had no travel. Her only new medication is Ozempic that was started recently. No other new meds. She has not had fevers. No trauma. No change in her symptoms or discontinuing if not worsening. [facility] Medical History (Updated 09/23/22 @ 00:[address] Ezekiel Carpenter MD) Anxiety Cancer Depression Diabetes mellitus DVT (deep venous thrombosis) History of blood clots Hx of thyroid cancer Hypertension Hypothyroidism Post-menopausal Syncope TIA (transient ischemic attack) Home Medications antiarthritic combination no.2 900 mg tablet (glucosamine-chondroitin) 1 tab PO DAILY SUPPLEMENT 01/24/15 [History Last Taken Unknown] enalapril maleate 20 mg tablet (Vasotec) 20 mg PO BID BP 01/24/15 [History Last Taken 01/31/15 05:00] venlafaxine 150 mg capsule,extended release 24 hr 150 mg PO DAILY 01/24/15 [History Last Taken Unknown] amitriptyline 75 mg tablet 75 mg PO QHS sleep 03/01/22 [History Last Taken Unknown] gabapentin 600 mg tablet 600 mg PO Q8H 03/01/22 [History Last Taken Unknown] meloxicam 15 mg tablet 15 mg PO DAILY 03/01/22 [History Last Taken Unknown] pravastatin 80 mg tablet 80 mg PO DAILY 03/01/22 [History Last Taken Unknown] levothyroxine 137 mcg tablet (Synthroid) 137 mcg PO DAILY THYROID 09/22/22 [History Last Taken Unknown] semaglutide 2 mg/dose (8 mg/3 mL) subcutaneous pen injector (Ozempic) 2 mg subcut SA 09/22/22 [History Last Taken Unknown] Allergy/AdvReac Type Severity Reaction Status Date / Time Penicillins [PCN] Allergy Anaphylaxis Verified 09/22/22 08:22 vancomycin Allergy Anaphylaxis Verified 09/22/22 08:22 Surgical History History of carpal tunnel release of both wrists Hx of oophorectomy Hx of thyroidectomy Social History Smoking Status: Never smoker alcohol intake: never ROS ROS ED ROS Narrative A complete review of systems was performed and is negative except as documented in the history of present illness. Some specific details below. Constitutional: No recent fevers or chills. She does have a sense of malaise. EYE: No visual complaints or pain. No icterus. ENT: No difficulty swallowing. No swelling. No pain. CV: No chest pain or palpitations. Respiratory: No dyspnea. No hemoptysis. No difficulty taking breaths. GI: Please see history of present illness. : No frequency dysuria or hematuria. Musculoskeletal: No recent trauma. No pains. Skin: No rash. Nondiaphoretic. Neuro: No weakness or numbness. Endocrine: No polyuria or polydipsia. EXAM Physical Exam Narrative Exam Narrative: CONSTITUTIONAL: Patient is nontoxic in appearance. The patient looks comfortable. HEENT: No notable trauma. Mucous membranes minimally dry. No sinus tenderness. No indication of pain with swallowing. EYES: No conjunctival injection. No proptosis. CARDIOVASCULAR: Regular rate. Regular rhythm. No notable murmur. No JVD. RESPIRATORY: No respiratory distress. Breathing is unlabored. No wheezes. No rhonchi. No rales. No pain with a deep breath. GASTROINTESTINAL: Not distended. Bowel sounds are normal. There is just mild high right upper quadrant tenderness. No guarding. No rebound. No palpable mass. No bruit. GENITOURINARY: No tenderness over the bladder. No CVA tenderness. MUSCULOSKELETAL: Atraumatic. No peripheral edema. NEUROLOGICAL: Patient is alert and appropriate. No focal deficit noted. SKIN: No noted rashes. No diaphoresis. No jaundice. PSYCHIATRIC: Patient is calm. Mood is appropriate. Const Vital Signs: 09/22/22 15:16 09/22/22 17:15 Temperature 97.9 F Temperature Source Temporal Pulse Rate 105 H 106 H Respiratory Rate 18 16 Blood Pressure 92/55 L 129/76 H Blood Pressure Mean 67 93 Pulse Ox 100 93 Oxygen Delivery Method Room Air Room Air MDM MDM MDM Narrative Medical decision making narrative: Patient CBC shows now a high white count at 21.1. Hemoglobin is stable and platelets are normal. Electrolytes show no marked abnormalities. BUN and creatinine were okay. Patient's LFTs do show a slight rise from earlier in her bilirubin. AST shows slight reduction in ALT shows slight rise. I discussed case with gastroen terologist, Dr. Bentley. We discussed that the patient's only new medicine is Ozempic. He has seen a transaminitis from this. With her having increased symptoms we will keep her in the hospital. She has failed outpatient therapy with pain control and nausea and vomiting. He requested further labs to be ordered and he put multiple in. We did get back a slightly elevated C-reactive protein but ESR was normal. LDH was high at 570. I discussed case with the hospitalist also and the patient will be admitted. Lab Data Attestation: I reviewed the patient's lab results. Labs: Laboratory Results - last 24 hr 09/22/22 16:50 WBC 21.1 H RBC 4.64 Hgb 13.6 Hct 43.4 MCV 93.5 MCH 29.3 MCHC 31.3 L RDW Std Deviation 43.8 RDW Coeff of Charan 12.8 Plt Count 358 MPV 10.0 Immature Gran % (Auto) 0.600 Neut % (Auto) 90.8 H Lymph % (Auto) 2.3 L [place] % (Auto) 5.9 Eos % (Auto) 0.1 Baso % (Auto) 0.3 Absolute Neuts (auto) 19.1 H Absolute Lymphs (auto) 0.48 L Nucleated RBC % 0 Differential Comment SCANNED ESR < 1 Sodium 143 Potassium 3.6 Chloride 112 H Carbon Dioxide 28.0 Anion Gap 3 L BUN 15 Creatinine 1.01 Estim Creat Clear Calc 59.75 Est GFR (MDRD) Af Amer 72 Est GFR (MDRD) Non-Af 59 L BUN/Creatinine Ratio 14.9 Glucose 171 H Calcium 8.1 L Total Bilirubin 2.30 H AST 1036 H ALT 905 H Alkaline Phosphatase 64 Lactate Dehydrogenase 570 H C-React Prot Ext Range 8.74 H Total Protein 6.0 L Albumin 3.2 Globulin 2.8 Albumin/Globulin Ratio 1.1 Management Discussion w/another healthcare provider: Hospitalist and [employer] Discharge Plan Dx/Rx/DC Orders Clinical Impression: Transaminitis, Failure of outpatient treatment, Nausea & vomiting Disposition Disposition: Acute Care Hospital [facility] Discharge Date/Time: 09/22/22 19:18
[2022-09-22 17:03] LABS: Absolute Lymphocyte Count 0.48 X10^3/uL (0.83-4.51); Absolute Neutrophil Count 19.1 X10^3/uL (2.0-7.7); Basophil# 0.06 X10^3/uL; Basophil% 0.3 % (0-1); Eosinophil# 0.02 X10^3/uL; Eosinophils% 0.1 % (0-5); Hematocrit 43.4 % (37-47); Hemoglobin 13.6 g/dL (12.0-15.0); Lymphocyte # 0.48 X10^3/ul (0.83-4.51); Lymphocyte % 2.3 % (19-41); Mean Corp Hgb Conc 31.3 g/dL (32-36); Mean Corpuscular Hgb 29.3 pg (27.0-32.0); Mean Corpuscular Volume 93.5 fL (81-99); Monocyte# 1.24 X10^3/uL; Monocyte% 5.9 % (0-10); NRBC Flagged by Analyzer 0 % (0-5); Neutrophil # 19.12 X10^3/uL (2.7-7.7); Neutrophil % 90.8 % (47-70); POSITIVE DIFFERENTIAL YES; Platelet Count 358 K/mm3 (150-450); RBC Distribution Width CV 12.8 % (11.6-14.6); RBC Distribution Width SD 43.8 fl (35.1-43.9); Red Blood Count 4.64 M/mm3 (4.2-5.4); White Blood Count 21.1 K/mm3 (4.4-11.0)
[2022-09-22 17:04] LABS: Differential Indicated SCAN CRITERIA MET
[2022-09-22 17:15] VITALS: BP 129/76; PULSE 106; RESP 16; O2SAT 93
[2022-09-22 17:22] LABS: Erythrocyte Sedimentation Rate < 1 mm/hr (0-30)
--- NOTE | 2022-09-22 17:26 | HP.PCM.HOS_ITS ---
[facility] - General General Date of Admission: 09/22/22 Date of Service: 09/22/22 Chief Complaint: Sudden onset of right upper quadrant abdominal pain along with nausea vomiting and loose bowel movement. HPI Oziel NEVILLE, is a 61 F who has history of diabetes mellitus type 2 and started on semaglutide, Ozempic about a month ago came to ED for sudden onset of right upper quadrant pain that is started last night. The pain has been getting worse, 3/4 in intensity and now 8-9/10 intensity along with nausea, vomiting and diarrhea. She describes her abdominal pain as constant, right epigastrium to right upper quadrant wraps around the back. She had 1-2 times gastric vomiting but has severe nausea. She also had 1 loose bowel movement but no blood. She denies burning micturition or new symptom in urine. First time she had right upper quadrant sonogram which shows multiple gallstones, mild hepatomegaly and diffuse fatty condition but no GB wall thickness, pericholecystic fluid or CBD dilatation therefore she was sent home after discussion with surgeon Dr. Jarrell. She came back in afternoon with progression of abdominal pain vomiting and loose bowel movement but no hematochezia, melena or hematemesis as described above. No fever but had cold sweats. She has elevated liver chemistry mainly transaminases. She denies prior history of liver, GB or pancreatic disease denies history of viral hepatitis. ED physician discussed with manager channel and patient is further admitted. [facility], [facility] Medical History Diabetes mellitus History of blood clots Hx of thyroid cancer Hypertension Home Medications antiarthritic combination no.2 900 mg tablet (glucosamine-chondroitin) 1 tab PO DAILY SUPPLEMENT 01/24/15 [History Last Taken Unknown] enalapril maleate 20 mg tablet (Vasotec) 20 mg PO BID BP 01/24/15 [History Last Taken 01/31/15 05:00] venlafaxine 150 mg capsule,extended release 24 hr 150 mg PO DAILY 01/24/15 [History Last Taken Unknown] amitriptyline 75 mg tablet 75 mg PO DAILY 03/01/22 [History Last Taken Unknown] gabapentin 600 mg tablet 600 mg PO Q8H 03/01/22 [History Last Taken Unknown] meloxicam 15 mg tablet 15 mg PO DAILY 03/01/22 [History Last Taken Unknown] pravastatin 80 mg tablet 80 mg PO DAILY 03/01/22 [History Last Taken Unknown] levothyroxine 137 mcg tablet (Synthroid) 137 mcg PO DAILY THYROID 09/22/22 [History Last Taken Unknown] semaglutide 2 mg/dose (8 mg/3 mL) subcutaneous pen injector (Ozempic) 2 mg subcut SA 09/22/22 [History Last Taken Unknown] Allergy/AdvReac Type Severity Reaction Status Date / Time Penicillins [PCN] Allergy Anaphylaxis Verified 09/22/22 08:22 vancomycin Allergy Anaphylaxis Verified 09/22/22 08:22 Surgical History History of carpal tunnel release of both wrists Hx of oophorectomy Hx of thyroidectomy Social History Smoking Status: Never smoker alcohol intake: never ROS ROS Narrative Constitutional: Reports fatigue and weakness. No fever. HEENT: Reports systems reviewed and no addt'l complaints, except as documented Respiratory/Chest: No acute shortness of breath or respiratory distress or wheezing. CVS: No history of chest pain pressure or tightness. Denies coronary artery disease or chronic cardiac conditions Gastrointestinal as described in HPI Genitourinary: Denies burning urination or new urinary tract symptoms Musculoskeletal: Denies acute joint pain or limited range of motion. No acute injury Neurologic: Denies seizure-like symptoms. skin: No ulcer. No rash Endocrinology: Reports systems reviewed and no addt'l complaints, except as documented Hematologic/Lymphatic: Reports systems reviewed and no addt'l complaints, except as documented Rest 14 ROS are negative except as mentioned in HPI Vital Signs Vital Signs Vital Signs: 09/22/22 15:16 Temperature 97.9 F Temperature Source Temporal Pulse Rate 105 H Respiratory Rate 18 Blood Pressure 92/55 L Blood Pressure Mean 67 Pulse Ox 100 Oxygen Delivery Method Room Air Weight Weight: 184 lb 1.376 oz Body Mass Index (BMI) 28.0 Physical Exam Narrative General: Alert, Oriented x3, Cooperative, looks dehydrated. HEENT: Atraumatic, PERRLA, EOMI, Normocephalic Oral: Oral ulcer dry. No Gingival or Mucosal Lesions/ Ulcerations Neck: Supple, No JVD, Negative Carotid Bruits Lungs: Air entry diminished in bilateral lung bases. No crepitation/rhonchi Cardiovascular: Regular rate, Regular Rhythm, Normal S1, Normal S2, No murmurs Abdomen: Bowel Sounds Present, Soft, tenderness present in epigastric and right upper quadrant. Very tender therefore could not palpate deeply for hepatomegaly. No palpable ascites. : No renal angle tenderness. No suprapubic tenderness. Extremities: No edema, Capillary Refill Less than 3 Seconds Skin: No rashes, No breakdown Musculoskeletal: No Tenderness to Palpation of Joints or Extremities. ROM intact. Neurological: Cranial nerves II-XII grossly intact, DTR 2+/4. No acute focal neurological deficit. Psych/Mental Status: Flat look. Results Lab / Micro Data 09/22/22 16:50 09/22/22 16:50 Labs: Laboratory Results - last 24 hr 09/22/22 16:50: WBC 21.1 H, RBC 4.64, Hgb 13.6, Hct 43.4, MCV 93.5, MCH 29.3, MCHC 31.3 L, RDW Std Deviation 43.8, RDW Coeff of Charan 12.8, Plt Count 358, MPV 10.0, Immature Gran % (Auto) 0.600, Neut % (Auto) 90.8 H, Lymph % (Auto) 2.3 L, [place] % (Auto) 5.9, Eos % (Auto) 0.1, Baso % (Auto) 0.3, Absolute Neuts (auto) 19.1 H, Absolute Lymphs (auto) 0.48 L, Nucleated RBC % 0, ESR < 1 Assessment & Plan Assessment/Plan (1) Right upper quadrant abdominal pain: PLAN: Plan 1. Acute liver injury most likely drug-induced liver injury from semaglutide/Ozempic: Patient is being admitted on Medr floor. Patient had right upper quadrant shows hepatomegaly and multiple gallstones and mild fatty infiltration but does not seem acute cholecystitis or ductal dilatation. Liver chemistry reviewed shows elevated total bilirubin, ALT 905, AST 1036. LDH 570. CRP elevated. Sustainable Systems Analyst consulted. Autoimmune antibodies ordered along with viral hepatitis. Monitor liver chemistry daily. IV fluid Ringer lactate ordered. Hold hepatotoxic medications including similar night, amitriptyline, meloxicam, pravastatin and venlafaxine. Gabapentin dose decreased. 2. Diabetes mellitus type 2: Hold semaglutide admission above. Accu-Chek before meals and cover with Humalog sliding scale. 3. Hypertension: Blood pressure is in 110s. Patient on enalapril 20 mg twice daily at home decreased to lisinopril 10 mg once daily with holding parameter. 4. Hypothyroidism, degenerative joint disease of left hip and peripheral neuropathy: Levothyroxine continued. VTE prophylaxis: Heparin 5 continue subcutaneous twice daily. Bilateral SCDs. Living will/advanced directive/end of life care: Patient does not have living will or advanced directive. She does not have designated power of contracts attorney for health but her is next to kin. After discussion of benefits/risks procedures involved with full code, DNR CC arrest and DNR CC, the patient opted for DNRCC arrest with no intubation. Patient doesn't want artificial life support including intubation, tube feed, ventilator and/chest compression, central venous catheter, vasopressor and DC shock if needed Total time spent in [id number] encounter in discussion of advanced directive 17 minutes. Laboratory Results 09/22/22 16:50: WBC 21.1 H, RBC 4.64, Hgb 13.6, Hct 43.4, MCV 93.5, MCH 29.3, MCHC 31.3 L, RDW Std Deviation 43.8, RDW Coeff of Charan 12.8, Plt Count 358, MPV 10.0, Immature Gran % (Auto) 0.600, Neut % (Auto) 90.8 H, Lymph % (Auto) 2.3 L, [place] % (Auto) 5.9, Eos % (Auto) 0.1, Baso % (Auto) 0.3, Absolute Neuts (auto) 19.1 H, Absolute Lymphs (auto) 0.48 L, Nucleated RBC % 0, Differential Comment SCANNED, ESR < 1 Sodium 143, Potassium 3.6, Chloride 112 H, Carbon Dioxide 28.0, Anion Gap 3 L, BUN 15, Creatinine 1.01, Estim Creat Clear Calc 59.75, Est GFR (MDRD) Af Amer 72, Est GFR (MDRD) Non-Af 59 L, BUN/Creatinine Ratio 14.9, Glucose 171 H, Eran cium 8.1 L, Total Bilirubin 2.30 H, AST 1036 H, ALT 905 H, Alkaline Phosphatase 64, Lactate Dehydrogenase 570 H, C-React Prot Ext Range 8.74 H, Total Protein 6.0 L, Albumin 3.2, Globulin 2.8, Albumin/Globulin Ratio 1.1, c-ANCA Antibody Pe nding, p-ANCA Antibody Pending 09/22/22 17:10: IgG Pending, IgA Pending, IgM Pending, IgE Pending, NICKIE-1 Antibody Pending, SS-A/Ro IgG Antibody Pending, SS-B/La IgG Antibody Pending, Sm (Negron) Antibody Pending, RUBBER STAMP DIES INSPECTOR Antibody Pending, Scl-70 Scleroderma Ab Pending, Double Strand DNA Ab Pending, Centromere B Antibody Pending, Anti-Mitochondrial Ab Pending, Anti-Smooth Muscle Ab Pending, CMV IgM Ab Pending, EBV Capsid Ag IgG Ab Pending, EBV Capsid Ag IgM Ab Pending, EBV Nuclear Ag IgG Ab Pending, EBV Antibody Interp Pending Charges/Coding Visit Charges Inpatient E&M: 70211 Init Hosp L3 Procedures Hospitalists Procedures: 24189 Advncd Care Plan 30 Min
[2022-09-22 17:33] LABS: Differential Comment SCANNED
[2022-09-22 17:39] LABS: ALB/GLOB Ratio 1.1 RATIO (0.9-2.4); AST(SGOT) 1036 U/L (15-37); Alanine Aminotransfer ALT/SGPT 905 U/L (13-56); Albumin, Serum 3.2 g/dL (3.2-5.0); Alkaline Phosphatase 64 U/L (45-117); Anion Gap 3 (5-15); BUN 15 mg/dL (7-18); BUN/Creat Ratio 14.9 RATIO (10-20); CRP 8.74 mg/L (0.0-3.0); Calcium,Total 8.1 mg/dL (8.5-10.1); Chloride 112 mmol/L (98-107); Creatinine, Serum 1.01 mg/dL (0.55-1.02); EST Glomerular Filtration Rate 59 mL/min (>60); Est Glom Filt Rate - Afr Amer 72 mL/min (>60); Estimated Creatinine Clearance 59.75 ml/min; Globulin 2.8 g/dL (2.2-4.2); Glucose 171 mg/dL (74-106); LDH 570 U/L (84-246); Potassium 3.6 mmol/L (3.5-5.1); Sodium Level 143 mmol/L (136-145)
--- NOTE | 2022-09-22 17:43 | EX.PCM.CON.G ---
HPI Consult Data Date of Consult: 09/22/22 HPI Narrative Reason for Consultation: abdominal pain HPI Narrative: PRABHU NEVILLE, is a 61 F who presents with abdominal pain that began last night. Patient states that has gradually gotten worse. Patient states the pain is over the epigastric area and radiates to the right upper quadrant and around to her back. She describes the pain as dull and aching. She states nothing makes it better nothing makes it worse. Patient admits to some nausea and vomiting. Patient denies any diarrhea, melena, or hematochezia. Patient denies any dysuria, hematuria, or frequency. Patient denies any fevers or chills. She was noted to have some low to normal blood pressures in ED. WBC 21.1 H, RBC 4.64, Hgb 13.6, Hct 43.4, MCV 93.5, Plt Count 358, ESR < 1, Sodium 143, Potassium 3.6, Chloride 112 H, Carbon Dioxide 28.0, Anion Gap 3 L, BUN 15, Creatinine 1.01, Total Bilirubin 2.30 H, AST 1036 H, ALT 905 H, Alkaline Phosphatase 64, Lactate Dehydrogenase 570 H, C-React Prot Ext Range 8.74 H, Total Protein 6.0 L, Albumin 3.2, Globulin 2.8, Albumin/Globulin Ratio 1.1 Liver: The liver measures is enlarged and 17.5 cm. There is increased echogenicity consistent with fatty infiltration. The bile ducts are within normal limits. There is hepatic color flow. The direction of portal flow is hepatopetal. Focal fatty sparing is seen in the periportal region measuring 2.7 cm x 1.6 cm x 1.1 cm. Gallbladder: Normal distended gallbladder. The gallbladder wall measures 2.0 mm. There is a negative sonographic Bliss''s sign. There is no pericholecystic fluid. There are multiple echogenic structures within the gallbladder, consistent with multiple gallstones. Common Bile Duct (C.B.D.): The common bile duct measures 4.3 mm. FORMERLY [facility], 1928–1983 Medical History Diabetes mellitus History of blood clots Hx of thyroid cancer Hypertension Home Medications antiarthritic combination no.2 900 mg tablet (glucosamine-chondroitin) 1 tab PO DAILY SUPPLEMENT 01/24/15 [History Last Taken Unknown] enalapril maleate 20 mg tablet (Vasotec) 20 mg PO BID BP 01/24/15 [History Last Taken 01/31/15 05:00] venlafaxine 150 mg capsule,extended release 24 hr 150 mg PO DAILY 01/24/15 [History Last Taken Unknown] amitriptyline 75 mg tablet 75 mg PO DAILY 03/01/22 [History Last Taken Unknown] gabapentin 600 mg tablet 600 mg PO Q8H 03/01/22 [History Last Taken Unknown] meloxicam 15 mg tablet 15 mg PO DAILY 03/01/22 [History Last Taken Unknown] pravastatin 80 mg tablet 80 mg PO DAILY 03/01/22 [History Last Taken Unknown] levothyroxine 137 mcg tablet (Synthroid) 137 mcg PO DAILY THYROID 09/22/22 [History Last Taken Unknown] semaglutide 2 mg/dose (8 mg/3 mL) subcutaneous pen injector (Ozempic) 2 mg subcut SA 09/22/22 [History Last Taken Unknown] Allergy/AdvReac Type Severity Reaction Status Date / Time Penicillins [PCN] Allergy Anaphylaxis Verified 09/22/22 08:22 vancomycin Allergy Anaphylaxis Verified 09/22/22 08:22 Surgical History History of carpal tunnel release of both wrists Hx of oophorectomy Hx of thyroidectomy Social History Smoking Status: Never smoker alcohol intake: never ROS Review of Systems ROS Unobtainable: other Constitutional Constitutional: Denies fatigue, fever(s), poor appetite, weight gain or weight loss ENT HEENT: Denies mouth lesions Cardiovascular Cardiovascular: Denies abdominal bloating, abdominal edema or abdominal pain Respiratory/Chest Respiratory/Chest: Denies change in mental status, change in phlegm color, chest congestion or chest tightness Gastrointestinal Gastrointestinal: Denies belching, bloating, change in bowel habits, change in stool character, chewing difficulty, coffee ground emesis, constipation, cramping, diarrhea, dyspepsia, dysphagia, early satiety, excessive flatus, fecal incontinence, heartburn, hematemesis, hematochezia, hemorrhoids, loose stools, melena, nausea, odynophagia, rectal bleeding, tenesmus, vomiting or weight changes Genitourinary Genitourinary: Denies abdominal discomfort, burning urination or itching Musculoskeletal Musculoskeletal: Reports as per HPI; Denies muscle weakness or myalgias Integumentary Integumentary: Denies jaundice Neurologic Neurologic: Denies lack of coordination or weakness Psychiatric Psychiatric: Denies confusion, depression, memory loss, mood swings, paranoia or suicidal ideation Endocrine Endocrinology: Denies systems reviewed and no addt'l complaints, except as documented Hematologic/Lymphatic Hematologic/Lymphatic: Denies anemia, easy bleeding, easy bruising or lymphadenopathy Allergic/Immunologic Allergic/Immunologic: Denies systems reviewed and no addt'l complaints, except as documented Physical Exam Const alert, oriented x3, no apparent distress, healthy appearing and well nourished General Appearance: cooperative, comfortable, well kempt and well developed Orientation / Consciousness: awake and oriented to person HEENT Head and Scalp: normocephalic and atraumatic Face and Sinus: normal facial exam Mouth: oral and palatal mucosa normal Eyes General Eye: normal appearance of both eyes Neck full ROM Lymph Lymphatic: no lymphadenopathy noted Chest inspection of chest normal Resp normal respiratory effort and no use of accessory muscles Cardio regular rate and regular rhythm GI normal to inspection, nondistended, normoactive bowel sounds, soft to palpation, non-tender, non-distended and no masses Auscultation: normoactive bowel sounds Palpation: soft Percussion: normal to percussion Rectal Exam: visual inspection normal and normal sphincter tone no CVA tenderness Back/Spine no CVA tenderness and normal ROM Extremity normal to inspection Peripheral Pulses: Yes pulses 2+ throughout Skin no rashes or lesions noted General Skin Exam: no breakdown, elasticity normal and turgor normal Neuro oriented x3 Motor Exam: strength 5/5 throughout Psych mental status grossly normal Appearance: grossly normal Attitude: calm Activity / Motor Behavior: appropriate eye contact Speech: normal speech Thought Process: normal thought process Thought Content: normal thought content Attention / Concentration: attention grossly intact Memory / Cognition: memory grossly intact Insight: insight good Judgement: judgement good Lab / Micro Data 09/22/22 16:50 09/22/22 16:50 Labs: Laboratory Results - last 24 hr 09/22/22 16:50: WBC 21.1 H, RBC 4.64, Hgb 13.6, Hct 43.4, MCV 93.5, MCH 29.3, MCHC 31.3 L, RDW Std Deviation 43.8, RDW Coeff of Charan 12.8, Plt Count 358, MPV 10.0, Immature Gran % (Auto) 0.600, Neut % (Auto) 90.8 H, Lymph % (Auto) 2.3 L, [place] % (Auto) 5.9, Eos % (Auto) 0.1, Baso % (Auto) 0.3, Absolute Neuts (auto) 19.1 H, Absolute Lymphs (auto) 0.48 L, Nucleated RBC % 0, Differential Comment SCANNED, ESR < 1, Sodium 143, Potassium 3.6, Chloride 112 H, Carbon Dioxide 28.0, Anion Gap 3 L, BUN 15, Creatinine 1.01, Estim Creat Clear Calc 59.75, Est GFR (MDRD) Af Amer 72, Est GFR (MDRD) Non-Af 59 L, BUN/Creatinine Ratio 14.9, Glucose 171 H, Calcium 8.1 L, Total Bilirubin 2.30 H, AST 1036 H, ALT 905 H, Alkaline Phosphatase 64, Lactate Dehydrogenase 570 H, C-React Prot Ext Range 8.74 H, Total Protein 6.0 L, Albumin 3.2, Globulin 2.8, Albumin/Globulin Ratio 1.1 Assessment & Plan Assessment/Plan (1) Transaminitis: PLAN: Differential diagnosis for acute hepatitis in the setting of hyperbilirubinemia is ischemic hepatitis in the setting of Gilbert syndrome.She has had some low blood pressures. This is higher, differential diagnosis along with acute viral and nonviral hepatitis such as acute hepatitis A, acute hepatitis B, EBV or CMV, RSV, influenza, HSV. I will give her Mucomyst for acute ischemic hepatitis. Also in the differential diagnosis does include exacerbation of autoimmune hepatitis although that should not give you pain. I do not think she does is secondary to choledocholithiasis as her alk phos is normal and I suspect that when we fractionate the bilirubin will be mostly indirect consistent with [place]. Her ESR that order was normal. CRP is pending. Her LDH is pending which is an acute phase reactant consistent with acute liver injury. She will need an INR along with PT and PTT to see how her synthetic function is and I will determine how she does in the near future regarding her liver. This does not seem to have any signs or symptoms of acute Marvel's disease as she has no psychiatric illness and there is no sign of hemolysis on her blood work. Also this is not seem like classical viral hepatitis and she denies any Tylenol. For now we will be supportive care and I recommend to do MRCP for further evaluation. No Tylenol products during this hospitalization. Charges/Coding Visit Charges Inpatient E&M: 26827 Init Hosp L3
[2022-09-22 18:52] LABS: Magnesium 2.1 mg/dL (1.6-2.6)
[2022-09-22 18:53] LABS: International Normalized Ratio 1.1; Prothrombin Time (Protime)PT. 13.8 SECONDS (11.7-14.9)
[2022-09-22 19:00] VITALS: BP 129/77; PULSE 107; RESP 16; O2SAT 98
[2022-09-22 19:08] VITALS: BP 129/77; PULSE 108; RESP 18; TEMP 36.3; O2SAT 98
[2022-09-22 19:42] VITALS: BMI 28.6
[2022-09-22 19:54] VITALS: BP 120/71; PULSE 110; RESP 16; TEMP 36.4; O2SAT 96
[2022-09-22] MEDS: Lactated Ringers 1,000 ML 100 ML IV (20:01)
[2022-09-22] MEDS: HYDROmorphone 0.5 MG/0.5 ML SYRINGE IV (20:15)
[2022-09-22] MEDS: 0.9% Saline Lock 10 ML Syringe IV (20:16)
[2022-09-22] MEDS: Heparin Injection (Vial) 5,000 UNIT/ML VIAL 5000 UNIT SC (23:14)
[2022-09-22] MEDS: Gabapentin 300 MG Capsule PO (23:15)
[2022-09-22 23:25] VITALS: BP 120/76; PULSE 120; RESP 18; TEMP 36.8; O2SAT 96
[2022-09-23 00:14] LABS: Bedside Glucose 139 mg/dL (74-106)
[2022-09-23] MEDS: Lactated Ringers 1,000 ML 100 ML IV (05:24)
[2022-09-23] MEDS: Gabapentin 300 MG Capsule PO ×3 (05:25→22:02)
[2022-09-23] MEDS: Levothyroxine 137 MCG Tablet PO (05:25)
[2022-09-23] MEDS: HYDROmorphone Inj 0.2 MG/ML SYRINGE IV (05:30)
[2022-09-23 05:37] VITALS: BP 120/79; PULSE 112; RESP 16; TEMP 36.6; O2SAT 96
[2022-09-23 06:00] VITALS: BMI 28.8
[2022-09-23 06:41] LABS: Absolute Lymphocyte Count 0.32 X10^3/uL (0.83-4.51); Absolute Neutrophil Count 17.2 X10^3/uL (2.0-7.7); Basophil# 0.04 X10^3/uL; Basophil% 0.2 % (0-1); Eosinophils% 0.5 % (0-5); Hematocrit 42.7 % (37-47); Hemoglobin 13.5 g/dL (12.0-15.0); Lymphocyte # 0.32 X10^3/ul (0.83-4.51); Lymphocyte % 1.8 % (19-41); Mean Corp Hgb Conc 31.6 g/dL (32-36); Mean Corpuscular Hgb 29.3 pg (27.0-32.0); Mean Corpuscular Volume 92.8 fL (81-99); Mean Platelet Vol. 9.8 fl (6.2-12.0); Monocyte# 0.56 X10^3/uL; Monocyte% 3.1 % (0-10); NRBC Flagged by Analyzer 0 % (0-5); Neutrophil # 17.17 X10^3/uL (2.7-7.7); Neutrophil % 94.1 % (47-70); POSITIVE DIFFERENTIAL YES; Platelet Count 343 K/mm3 (150-450); RBC Distribution Width CV 13.2 % (11.6-14.6); RBC Distribution Width SD 45.1 fl (35.1-43.9); White Blood Count 18.3 K/mm3 (4.4-11.0)
[2022-09-23 06:46] LABS: Differential Indicated SCAN CRITERIA MET
[2022-09-23 07:05] LABS: AST(SGOT) 597 U/L (15-37); Alanine Aminotransfer ALT/SGPT 830 U/L (13-56); Albumin, Serum 2.9 g/dL (3.2-5.0); Alkaline Phosphatase 79 U/L (45-117); Anion Gap 3 (5-15); BUN 17 mg/dL (7-18); BUN/Creat Ratio 17.5 RATIO (10-20); Calcium,Total 8.1 mg/dL (8.5-10.1); Chloride 109 mmol/L (98-107); Creatinine, Serum 0.97 mg/dL (0.55-1.02); EST Glomerular Filtration Rate 62 mL/min (>60); Est Glom Filt Rate - Afr Amer 75 mL/min (>60); Estimated Creatinine Clearance 59.98 ml/min; Globulin 2.8 g/dL (2.2-4.2); Glucose 156 mg/dL (74-106); Potassium 4.4 mmol/L (3.5-5.1); Protein, Total 5.7 g/dL (6.4-8.2); Sodium Level 138 mmol/L (136-145)
[2022-09-23 07:11] LABS: Bedside Glucose 145 mg/dL (74-106)
[2022-09-23 07:16] LABS: Differential Comment SCANNED
[2022-09-23 08:12] VITALS: BP 132/77; PULSE 110; RESP 16; TEMP 37; O2SAT 95
--- NOTE | 2022-09-23 08:41 | PN.HOSP_ITS ---
Reason for Visit Reason for Visit: Diagnoses Right upper quadrant pain (09/22/22) Subjective Subjective Still with abdominal pain. Objective Data Objective Data Vital Signs: Vital Signs Temp Pulse Resp BP Pulse Ox O2 Del Method O2 Flow Rate 37 C 110 H 16 123/77 H 95 Nasal Cannula 2 09/23/22 08:12 09/23/22 08:12 09/23/22 08:12 09/23/22 08:12 09/23/22 08:12 09/23/22 08:13 09/23/22 08:13 Oxygen Flow Rate (L/min) 2 Oxygen Delivery Method Nasal Cannula Weight: 84.1 kg Body Mass Index (BMI) 28.8 Intake & Output: Intake and Output for Last 24 Hours 09/21/22 09/22/22 09/23/22 23:59 23:59 23:59 Intake Total 1110 / 1110 938.33 / 938.33 Balance 1110 / 1110 938.33 / 938.33 Lab / Micro Data 09/23/22 06:31 09/23/22 06:31 Labs: Laboratory Results - last 24 hr 09/22/22 16:50: WBC 21.1 H, RBC 4.64, Hgb 13.6, Hct 43.4, MCV 93.5, MCH 29.3, MCHC 31.3 L, RDW Std Deviation 43.8, RDW Coeff of Charan 12.8, Plt Count 358, MPV 10.0, Immature Gran % (Auto) 0.600, Neut % (Auto) 90.8 H, Lymph % (Auto) 2.3 L, [place] % (Auto) 5.9, Eos % (Auto) 0.1, Baso % (Auto) 0.3, Absolute Neuts (auto) 19.1 H, Absolute Lymphs (auto) 0.48 L, Nucleated RBC % 0, Differential Comment SCANNED, ESR < 1, Sodium 143, Potassium 3.6, Chloride 112 H, Carbon Dioxide 28.0, Anion Gap 3 L, BUN 15, Creatinine 1.01, Estim Creat Clear Calc 59.75, Est GFR (MDRD) Af Amer 72, Est GFR (MDRD) Non-Af 59 L, BUN/Creatinine Ratio 14.9, Glucose 171 H, Calcium 8.1 L, Total Bilirubin 2.30 H, AST 1036 H, ALT 905 H, Alkaline Phosphatase 64, Lactate Dehydrogenase 570 H, C-React Prot Ext Range 8.74 H, Total Protein 6.0 L, Albumin 3.2, Globulin 2.8, Albumin/Globulin Ratio 1.1 09/22/22 18:30: PT 13.8, INR 1.1, Magnesium 2.1 09/22/22 23:17: POC Glucose 139 H 09/23/22 06:31: WBC 18.3 H, RBC 4.60, Hgb 13.5, Hct 42.7, MCV 92.8, MCH 29.3, MCHC 31.6 L, RDW Std Deviation 45.1 H, RDW Coeff of Charan 13.2, Plt Count 343, MPV 9.8, Immature Gran % (Auto) 0.300, Neut % (Auto) 94.1 H, Lymph % (Auto) 1.8 L, [place] % (Auto) 3.1, Eos % (Auto) 0.5, Baso % (Auto) 0.2, Absolute Neuts (auto) 17.2 H, Absolute Lymphs (auto) 0.32 L, Nucleated RBC % 0, Differential Comment SCANNED, Sodium 138, Potassium 4.4, Chloride 109 H, Carbon Dioxide 26.0, Anion Gap 3 L, BUN 17, Creatinine 0.97, Estim Creat Clear Calc 59.98, Est GFR (MDRD) Af Amer 75, Est GFR (MDRD) Non-Af 62, BUN/Creatinine Ratio 17.5, Glucose 156 H, Calcium 8.1 L, Total Bilirubin 4.70 H, AST 597 H, ALT 830 H, Alkaline Phosphatase 79, Total Protein 5.7 L, Albumin 2.9 L, Globulin 2.8, Albumin/Globulin Ratio 1.0 09/23/22 06:53: POC Glucose 145 H Physical Exam Const alert and no apparent distress Eyes Eyes Narrative: icterus. Resp normal respiratory effort, no retractions, no use of accessory muscles and clear to auscultation bilaterally Cardio regular rate, regular rhythm, S1 normal heart sound and S2 normal heart sound GI normal to inspection, nondistended, normoactive bowel sounds and soft to palpation GI Narrative: RUQ abdominal pain w/o rebound. Assessment & Plan Assessment/Plan (1) Transaminitis: PLAN: Acute onset Improving AST and ALT, though bilirubin is trending upwards Etiology unclear: iatrogenic 2/2 semaglutide, which is being held v ischemic hepatitis v viral hepatitis v Gilbert's GI following Additionally, holding amitriptyline, meloxicam, pravastatin Still with significant abdominal pain. Will add oxycodone. Data: * Autoimmune work up pending * Viral hepatitis work up: Hep A IgM (-), Hep B core IgM (-), Hep C Ab negative. CMV and EBV pending. * LDH 570, CRP 8.74 * GB US showed mild hepatomegaly and diffuse fatty infiltration of the liver with focal fatty sparing. Multiple gallstones. CBD measures 4.3mm * MRCP pending. Likely to be performed on 09/24 * Lipase 47 PLAN: Plan Chronic conditions: * Diabetes mellitus type 2: Hold semaglutide admission above. Accu-Chek before meals and cover with Humalog sliding scale. * Hypertension: Blood pressure is in 110s. Patient on enalapril 20 mg twice daily at home decreased to lisinopril 10 mg once daily with holding parameter. * Hypothyroidism, degenerative joint disease of left hip and peripheral neuropathy: Levothyroxine continued. * HLP: holding statin as above. * Resume venlafaxine VTE prophylaxis: SQ heparin Code Status: DNRCCA, no intubation. DW family at bedside. Charges/Coding Visit Charges Inpatient E&M: 77739 Subs Hosp L2
[2022-09-23] MEDS: HYDROmorphone 0.5 MG/0.5 ML SYRINGE IV ×4 (09:17→22:02)
[2022-09-23] MEDS: Pantoprazole Sodium 40 MG Tablet PO (09:18)
[2022-09-23] MEDS: Lisinopril 10 MG Tablet PO (09:18)
[2022-09-23 09:33] VITALS: O2SAT 97
--- NOTE | 2022-09-23 11:24 | MRI_ITS ---
STUDY: MR CHOLANGIOPANCREATOGRAPHY (MRCP) REASON FOR EXAM: Female, 61 years old. PAIN CBD STONES PANCREATITIS jaundice, sudden onset ruq pain, nausea, vomitting diarrhea TECHNIQUE: Standard MRCP technique was utilized. 3-D postprocessing images were obtained. COMPARISON: ct 09.23.22. FINDINGS: There are bilateral pleural effusions. There is bilateral pneumonia. Ascites. Gall Bladder: There are multiple gallstones. Pericholecystic fluid. Cystic duct: Normal with no demonstrated fixed filling defect. Intrahepatic ducts: Normal visualized intrahepatic ducts with no demonstrated fixed filling defect, dilation or stricture. Common hepatic duct: Normal with no demonstrated fixed filling defect, dilation or stricture. Common bile duct: Normal with no demonstrated fixed filling defect, dilation or stricture. Pancreatic duct: Diffuse enlargement of the pancreas. No pancreatic duct dilation. There is acute pancreatitis. MRI/MRCP Abdomen without Contrast IMPRESSION: There are multiple gallstones. Pericholecystic fluid. This can be related to the acute pancreatitis. There are bilateral pleural effusions. There is bilateral pneumonia. Ascites. Acute pancreatitis. Electronically Signed: Elliott Rubio MD at 20:22 EDT ,
--- NOTE | 2022-09-23 11:34 | NURSING ---
Glucose checked by patient device- 118
[2022-09-23] MEDS: Venlafaxine XR 150 MG Capsule PO (11:52)
[2022-09-23 14:27] VITALS: BP 131/76; PULSE 110; RESP 16; TEMP 36.9; O2SAT 96
[2022-09-23] MEDS: oxyCODONE 5 MG Tablet 10 MG PO (15:50)
--- NOTE | 2022-09-23 16:13 | CASEMGMT ---
ROLANDO SOTELO Assessment: Face to Face with pt for initial transition planning/care coordination assessment. RN DEEPAK introduced self and role at [facility], pt voices understanding and consents to assessment. Pt is A/O x4 and answers all questions appropriately at this time. Pt lying in bed with oxygen on in no distress, at bedside. Care providers, pharmacy, and demographics verified/updated. Admitting Dx: acute liver injury PCP:Yazmin Specialists:eyad Haro Preferred Pharmacy: [facility] Insurance: MMO Prescription Benefit: yes LNOK: Trevor Short, ; Candy Angulo, Mother Living Arrangements: Pt lives with in a two story home with 5 steps to enter front or back with a rail on both entrances. Pt reports she was I in ADL's prior to hospitalization. Pt denies concerns at home. Transportation: Pt drives self and denies concerns with transportation. DME/HHC/SNF: Pt has a CGM with sufficient supplies. Pt denies using any AD. Pt denies hx of HHC or SNF stays. Pt states no concerns with going home at time of dc. Pt states no further concerns/needs. CM to follow. Advised pt to ask CM if any further question/concerns/needs arise, voices understanding. Pt Goal: Home Plan: Home
[2022-09-23] MEDS: 0.9% Normal Saline 1,000 ML 125 ML IV (16:24)
--- NOTE | 2022-09-23 17:14 | EX.PCM.PN.GI ---
Subjective Subjective Patient is still having abdominal pain along with nausea. She rates her abdominal pain at a 6-7 out of 10. It is in the midepigastric and right upper quadrant. Awaiting MRI Objective Data Objective Data Vital Signs: Vital Signs Temp Pulse Resp BP Pulse Ox O2 Del Method O2 Flow Rate 98.4 F 110 H 16 131/76 H 96 Nasal Cannula 2 09/23/22 14:27 09/23/22 14:27 09/23/22 14:27 09/23/22 14:27 09/23/22 14:27 09/23/22 14:27 09/23/22 14:27 Oxygen Flow Rate (L/min) 2 Oxygen Delivery Method Nasal Cannula Weight: 185 lb 6.54 oz Body Mass Index (BMI) 28.8 Intake & Output: Intake and Output for Last 24 Hours 09/21/22 09/22/22 09/23/22 23:59 23:59 23:59 Intake Total 1110 / 1110 1938.33 / 1938.33 Balance 1110 / 1110 1938.33 / 1938.33 Lab / Micro Data 09/23/22 06:31 09/23/22 06:31 Labs: Laboratory Results - last 24 hr 09/22/22 16:50: Differential Comment SCANNED, ESR < 1, Sodium 143, Potassium 3.6, Chloride 112 H, Carbon Dioxide 28.0, Anion Gap 3 L, BUN 15, Creatinine 1.01, Estim Creat Clear Calc 59.75, Est GFR (MDRD) Af Amer 72, Est GFR (MDRD) Non-Af 59 L, BUN/Creatinine Ratio 14.9, Glucose 171 H, Calcium 8.1 L, Total Bilirubin 2.30 H, AST 1036 H, ALT 905 H, Alkaline Phosphatase 64, Lactate Dehydrogenase 570 H, C-React Prot Ext Range 8.74 H, Total Protein 6.0 L, Albumin 3.2, Globulin 2.8, Albumin/Globulin Ratio 1.1 09/22/22 18:30: PT 13.8, INR 1.1, Magnesium 2.1 09/22/22 23:17: POC Glucose 139 H 09/23/22 06:31: WBC 18.3 H, RBC 4.60, Hgb 13.5, Hct 42.7, MCV 92.8, MCH 29.3, MCHC 31.6 L, RDW Std Deviation 45.1 H, RDW Coeff of Charan 13.2, Plt Count 343, MPV 9.8, Immature Gran % (Auto) 0.300, Neut % (Auto) 94.1 H, Lymph % (Auto) 1.8 L, Dubois % (Auto) 3.1, Eos % (Auto) 0.5, Baso % (Auto) 0.2, Absolute Neuts (auto) 17.2 H, Absolute Lymphs (auto) 0.32 L, Nucleated RBC % 0, Differential Comment SCANNED, Sodium 138, Potassium 4.4, Chloride 109 H, Carbon Dioxide 26.0, Anion Gap 3 L, BUN 17, Creatinine 0.97, Estim Creat Clear Calc 59.98, Est GFR (MDRD) Af Amer 75, Est GFR (MDRD) Non-Af 62, BUN/Creatinine Ratio 17.5, Glucose 156 H, Calcium 8.1 L, Total Bilirubin 4.70 H, AST 597 H, ALT 830 H, Alkaline Phosphatase 79, Total Protein 5.7 L, Albumin 2.9 L, Globulin 2.8, Albumin/Globulin Ratio 1.0 09/23/22 06:53: POC Glucose 145 H Physical Exam Const alert and no apparent distress Eyes Eyes Narrative: icterus. Resp normal respiratory effort, no retractions, no use of accessory muscles and clear to auscultation bilaterally Cardio regular rate, regular rhythm, S1 normal heart sound and S2 normal heart sound GI normal to inspection, nondistended, normoactive bowel sounds and soft to palpation GI Narrative: RUQ abdominal pain w/o rebound. Assessment & Plan Assessment/Plan (1) Transaminitis: PLAN: Differential diagnosis for acute hepatitis in the setting of hyperbilirubinemia is ischemic hepatitis in the setting of Gilbert syndrome.She has had some low blood pressures. This is higher, differential diagnosis along with acute viral and nonviral hepatitis such as acute hepatitis A, acute hepatitis B, EBV or CMV, RSV, influenza, HSV. I will give her Mucomyst for acute ischemic hepatitis. Also in the differential diagnosis does include exacerbation of autoimmune hepatitis although that should not give you pain. I do not think she does is secondary to choledocholithiasis as her alk phos is normal and I suspect that when we fractionate the bilirubin will be mostly indirect consistent with Fitzpatrick Bears. Her ESR that order was normal. CRP is pending. Her LDH is pending which is an acute phase reactant consistent with acute liver injury. She will need an INR along with PT and PTT to see how her synthetic function is and I will determine how she does in the near future regarding her liver. This does not seem to have any signs or symptoms of acute Marvel's disease as she has no psychiatric illness and there is no sign of hemolysis on her blood work. Also this is not seem like classical viral hepatitis and she denies any Tylenol. For now we will be supportive care and I recommend to do MRCP for further evaluation. No Tylenol products during this hospitalization. 09/22: Her abdominal pain is making me really think that this is an obstructive physiology. The only other etiology that I can see that was not obstructive involving the biliary tract would be a thrombotic event. I will order a CT angiography to make sure that there is no sign of arterial or venous thrombus. Awaiting MRI. Blood work was sent off for autoimmune hepatitis. Also in the differential diagnosis would be medication induced gastroparesis resulting in nausea vomiting and ischemic hepatitis causing the transaminitis and hyperbilirubinemia. That would correlate with very high AST and ALT and then later 48 to 72 hours and increase in bilirubin. I will fractionate the bilirubin,Check a CPK, repeat ESR, CRP and get a CT angiography as we await the MRI Charges/Coding Visit Charges Inpatient E&M: 74043 Subs Hosp L3
--- NOTE | 2022-09-23 17:18 | CT_ITS ---
EXAM: CT ANGIOGRAPHY ABDOMEN WITHOUT AND WITH INTRAVENOUS CONTRAST CLINICAL INDICATION: jaundice and ischemic hepatitis TECHNIQUE: Helically acquired angiography images of the abdomen without and with intravenous contrast. This CT exam was performed using one or more of the following dose reduction techniques: automated exposure control, adjustment of the mA and/or kV according to patient size, and/or use of iterative reconstruction technique. MIP reconstructed images were created and reviewed. CONTRAST: IV 100mL Isovue-370 COMPARISON: No relevant prior studies available. FINDINGS: AORTA: No acute findings. Normal caliber abdominal aorta. No dissection. CELIAC TRUNK AND MESENTERIC ARTERIES: No acute findings. No occlusion or significant stenosis. No dissection. RENAL ARTERIES: No acute findings. No occlusion or significant stenosis. No dissection. LOWER THORAX: There are small bilateral effusions with bibasilar consolidation which may represent atelectasis. No cardiomegaly. LIVER: Liver is decreased in attenuation. The hepatic artery is patent. GALLBLADDER AND BILE DUCTS: Pericholecystic fluid present. No intra- or extrahepatic biliary ductal dilation. PANCREAS: There is minimal inflammation surrounding the head of the pancreas and proximal duodenum which may be either from duodenitis. Pancreatitis. No focal cystic or solid mass. SPLEEN: Unremarkable. Normal size without focal cystic or solid mass. ADRENALS: Unremarkable. No nodules. KIDNEYS AND URETERS: Unremarkable. Normal renal size and position. No hydronephrosis. STOMACH AND BOWEL: Unremarkable. No stomach or bowel distention. No focal inflammatory change. INTRAPERITONEAL SPACE: Small amount of fluid anterior to liver ascites. No free air. BONES/JOINTS: Unremarkable. No suspicious lytic or blastic abnormality. SOFT TISSUES: Unremarkable. No discrete abdominal or pelvic wall hernia. LYMPH NODES: No enlarged lymph nodes. CT/CTA Abdomen W/WO Contrast IMPRESSION: 1. Inflammation surrounding the proximal duodenum as well as the head of the pancreas which may represent duodenitis or pancreatitis. There is also free fluid anterior liver margin ascites. Pericholecystic fluid. 2. Small bilateral effusions and bibasilar consolidation may represent. 3. Widely patent aortic branches. There is no stenosis or occlusion. Electronically Signed: Martinez Cabrera MD at 19:23 EDT ,
--- NOTE | 2022-09-23 17:30 | NURSING ---
Candace soni blood glucose 148
[2022-09-23 18:45] LABS: Erythrocyte Sedimentation Rate 6 mm/hr (0-30)
[2022-09-23 18:53] LABS: Amylase 881 U/L (25-115); Bilirubin, Direct 3.81 mg/dL (0.00-0.30); CPK Total, Creatine Kinase 36 U/L (26-192); Lipase 1430 U/L (13-75)
[2022-09-23] MEDS: Venlafaxine XR 75 MG Capsule PO (22:02)
[2022-09-23] MEDS: Heparin Injection (Vial) 5,000 UNIT/ML VIAL 5000 UNIT SC (22:16)
[2022-09-23 22:19] VITALS: BP 116/67; PULSE 124; RESP 18; TEMP 36.9; O2SAT 98
[2022-09-24] VITALS (7 sets, daily range): BP systolic 103–120; BP diastolic 53–82; PULSE 110–128; RESP 16–18; TEMP 36.4–37.3; O2SAT 87–98; BMI 28.8
[2022-09-24] MEDS: 0.9% Normal Saline 1,000 ML 125 ML IV ×2 (01:16→09:13)
[2022-09-24] MEDS: HYDROmorphone 0.5 MG/0.5 ML SYRINGE IV ×5 (02:11→23:21)
[2022-09-24] MEDS: Ondansetron 4 MG/2 ML Vial IV (02:38)
[2022-09-24] MEDS: Levothyroxine 137 MCG Tablet PO (05:08)
[2022-09-24] MEDS: Gabapentin 300 MG Capsule PO ×3 (05:08→22:32)
[2022-09-24 06:15] LABS: Bedside Glucose 80 mg/dL (74-106)
[2022-09-24 06:18] LABS: ALB/GLOB Ratio 0.8 RATIO (0.9-2.4); AST(SGOT) 117 U/L (15-37); Alanine Aminotransfer ALT/SGPT 384 U/L (13-56); Albumin, Serum 2.4 g/dL (3.2-5.0); Alkaline Phosphatase 78 U/L (45-117); Anion Gap 5 (5-15); BUN 12 mg/dL (7-18); BUN/Creat Ratio 15.9 RATIO (10-20); Calcium,Total 7.9 mg/dL (8.5-10.1); Chloride 106 mmol/L (98-107); Creatinine, Serum 0.76 mg/dL (0.55-1.02); EST Glomerular Filtration Rate 83 mL/min (>60); Est Glom Filt Rate - Afr Amer 100 mL/min (>60); Estimated Creatinine Clearance 76.55 ml/min; Globulin 2.9 g/dL (2.2-4.2); Glucose 133 mg/dL (74-106); Potassium 4.4 mmol/L (3.5-5.1); Protein, Total 5.3 g/dL (6.4-8.2); Sodium Level 139 mmol/L (136-145)
[2022-09-24 07:58] LABS: Ammonia < 10.0 umol/L (11-32)
--- NOTE | 2022-09-24 09:03 | PCM.PN.HOSP ---
Reason for Visit Reason for Visit: Diagnoses Right upper quadrant pain (09/22/22) Elevation of levels of liver transaminase levels (09/22/22) Subjective Subjective Feeling worse despite pain medications. Objective Data Objective Data Vital Signs: Vital Signs Temp Pulse Resp BP Pulse Ox O2 Del Method O2 Flow Rate 36.9 C 120 H 16 118/66 98 Nasal Cannula 3 09/24/22 05:00 09/24/22 05:00 09/24/22 05:00 09/24/22 05:00 09/24/22 05:00 09/24/22 05:00 09/24/22 05:00 Oxygen Flow Rate (L/min) 3 Oxygen Delivery Method Nasal Cannula Weight: 84.1 kg Body Mass Index (BMI) 28.8 Intake & Output: Intake and Output for Last 24 Hours 09/22/22 09/23/22 09/24/22 23:59 23:59 23:59 Intake Total 1110 / 1110 2130.00 / 2130.00 731.25 / 731.25 Balance 1110 / 1110 2130.00 / 2130.00 731.25 / 731.25 Lab / Micro Data 09/23/22 06:31 09/24/22 05:36 Labs: Laboratory Results - last 24 hr 09/23/22 06:31: ESR 6, Total Bilirubin 4.50 H, Direct Bilirubin 3.81 H, Indirect Bilirubin 0.70, Total Creatine Kinase 36, C-React Prot Ext Range 113.00 H, Amylase 881 H, Lipase 1430 H 09/23/22 22:05: POC Glucose 80 09/24/22 05:36: Sodium 139, Potassium 4.4, Chloride 106, Carbon Dioxide 28.0, Anion Gap 5, BUN 12, Creatinine 0.76, Estim Creat Clear Calc 76.55, Est GFR (MDRD) Af Amer 100, Est GFR (MDRD) Non-Af 83, BUN/Creatinine Ratio 15.9, Glucose 133 H, Calcium 7.9 L, Total Bilirubin 5.70 H, AST 117 H, ALT 384 H, Alkaline Phosphatase 78, Ammonia < 10.0 L, Total Protein 5.3 L, Albumin 2.4 L, Globulin 2.9, Albumin/Globulin Ratio 0.8 L Radiography Diagnostic Testing: Radiology Impression MRCP 09/23/22 11:24 IMPRESSION: There are multiple gallstones. Pericholecystic fluid. This can be related to the acute pancreatitis. There are bilateral pleural effusions. There is bilateral pneumonia. Ascites. Acute pancreatitis. Electronically Signed: Elliott Rubio MD at 20:22 EDT , Abdomen CTA 09/23/22 17:18 IMPRESSION: 1. Inflammation surrounding the proximal duodenum as well as the head of the pancreas which may represent duodenitis or pancreatitis. There is also free fluid anterior liver margin ascites. Pericholecystic fluid. 2. Small bilateral effusions and bibasilar consolidation may represent. 3. Widely patent aortic branches. There is no stenosis or occlusion. Electronically Signed: Martinez Cabrera MD at 19:23 EDT , Physical Exam Const alert Constitutional Narrative: groggy. Resp normal respiratory effort and no retractions Cardio regular rate, regular rhythm, S1 normal heart sound and S2 normal heart sound GI GI Narrative: epigastric abdominal pain. Extremity normal to inspection Skin Skin Narrative: jaundice. Assessment & Plan Assessment/Plan (1) Transaminitis: PLAN: Acute onset Improving AST and ALT, though bilirubin is trending upwards Etiology unclear: iatrogenic 2/2 semaglutide, which is being held v ischemic hepatitis v viral hepatitis v Gilbert's GI following Additionally, holding amitriptyline, meloxicam, pravastatin Still with significant abdominal pain. Will add oxycodone. JANICE Gilman Friend. Concern it may be gallstone related. Consult General Surgery. Data: c-ANCA, p-ANCA negative; other Autoimmune work up pending Viral hepatitis work up: Hep A IgM (-), Hep B core IgM (-), Hep C Ab negative. CMV and EBV pending. LDH 570, CRP 8.74 GB US showed mild hepatomegaly and diffuse fatty infiltration of the liver with focal fatty sparing. Multiple gallstones. CBD measures 4.3mm MRCP showed multiple gallstones. Pericholecystic fluid. Pancreatitis. CTA abdomen: inflammation proximal duodenum and head of pancreas. Free fluid anterior liver margin. Small bilateral effusion and Lipase 47 (2) Pancreatitis: QUALIFIERS: Chronicity: acute Pancreatitis type: unspecified pancreatitis type Acute pancreatitis complication: unspecified Qualified Code(s): K85.90 - Acute pancreatitis without necrosis or infection, unspecified PLAN: Developed subsequently Supportive mgmt Does not appear to be due to choledocholithiasis. DW Dr. Fritz. Pt had HIDA scan that showed persistent liver uptake but w/o excretion. She recommended transfer to tertiary facility for further evaluation that may include liver biopsy. She does not recommend cholecystotomy tube at this time. PLAN: Plan Chronic conditions: Diabetes mellitus type 2: Hold semaglutide admission above. Accu-Chek before meals and cover with Humalog sliding scale. Hypertension: Blood pressure is in 110s. Patient on enalapril 20 mg twice daily at home decreased to lisinopril 10 mg once daily with holding parameter. Hypothyroidism, degenerative joint disease of left hip and peripheral neuropathy: Levothyroxine continued. HLP: holding statin as above. Resume venlafaxine VTE prophylaxis: SQ heparin Code Status: DNRCCA, no intubation. DW patient's son. He is concerned about her pain not being adequately controlled. Will schedule oxycodone. Called [facility] to facilitate transfer. Greater than 60 minutes discussing transaminitis and pancreatitis and pain control with patient, family. Discussing case with specialists and facilitating transfer. Charges/Coding Visit Charges Inpatient E&M: 21372 [facility] Hosp L3
[2022-09-24] MEDS: Pantoprazole Sodium 40 MG Tablet PO (09:09)
[2022-09-24] MEDS: oxyCODONE 5 MG Tablet 10 MG PO (09:23)
--- NOTE | 2022-09-24 11:09 | NM_ITS ---
INDICATION: pancreatitis. cholelithiasis. EXAMINATION: NUCLEAR MEDICINE HEPATOBILIARY SCAN - NM Hepatobiliary Imaging Quantitive TECHNIQUE: 5.7 mCi technetium 99m choletec was intravenously administered and static images were obtained. COMPARISON: Prior studies dated: September 23, 2022 and September 22, 2022. FINDINGS: There is homogeneous uptake by the right and left lobe of the liver. No excretion into the intra and extra hepatic biliary ducts are seen up to 2 hours following the administration of the radiopharmaceutical. Findings are suggestive of liver pathology. NM/Hepatobilliary Imaging IMPRESSION: Persistent liver uptake without excretion. Liver compromise should be ruled out.. Electronically Signed: Maxime Saucedo MD at 14:36 EDT ,
[2022-09-24] MEDS: Ciprofloxacin 400 MG/200 ML BAG 200 MG IV ×2 (11:47→22:32)
[2022-09-24 12:06] LABS: Bedside Glucose 86 mg/dL (74-106)
--- NOTE | 2022-09-24 12:32 | CON.PCM.SX_ITS ---
Assessment & Plan Assessment/Plan (1) Cholelithiasis: (2) Transaminitis: (3) Total bilirubin, elevated: (4) Pancreatitis: PLAN: Plan Pt clinical picture isn't straight forward. She has pancreatitis and galls tones; however, AST/ALT were almost 1000 on admit, which isn't typical of gallstones and the initial ultrasound showed no pericholecystic fluid. CT of the abdomen as well as MRCP does show pericholecystic fluid but patient also has fluid around her pancreas and liver. AST/ALT has come down but bili has gone up with normal alk phos- so with pancreatitis could be obstructive, but usually I would expect alk phos to be elevated as well. We will plan to get a HIDA scan without CCK to see if the gallbladder fills. If it does not we will plan for cholecystostomy tube at this time as her CT as well as MRCP showed a lot of inflammation at the pancreas. Addendum: Patient's HIDA scan did not even fill small bowel or gallbladder in 2 hours. Possible obstruction or invalid test due to medication or possibly due to her elevated liver function of her liver is not working as well. Patient's MRCP shows time in common bile duct makes obstruction less likely. I think the patient would benefit from possible liver biopsy however we would not be able to do that here or get results until Tuesday. Did discuss with Dr. Bentley as well as Dr. Santos would recommend transfer to a tertiary care facility due to the complexity of this case and not having the ability to do IR and pathology over the weekend. Also discussed with patient's son Trae who is also in agreement. Marcela Fritz M.D. Pager: [phone] [facility] [address] [place] [address], [facility], [address] [place] [id number] Office: [phone] HPI Consult Data Date of Consult: 09/24/22 HPI Narrative Reason for Consultation: Gallstones, pancreatitis HPI Narrative: PRABHU NEVILLE, is a 61 F who admitted due to abdominal pain which began 09/22 when she came to the ER. Patient was initially discharged but came back to the increasing pain. Patient came back her white blood count was up to 21.1 prior it was within normal limits. Patient also had ALT and AST at 1036, 905 initially when she came in. Questionable hepatitis initially as ultrasound the gallbladder was done which did not show any pericholecystic fluid patient did have gallstones normal wall normal common bile duct. Patient's AST and ALT has continued to come down however that bilirubin has gone up but alk phos has remained normal, elevated lipase. Patient has been having continued epigastric and right upper quadrant pain during this time. With increasing bilirubin and elevated lipase question more obstructive biliary picture and patient does have known gallstones. Patient had a CTA abd to rule out any thrombosis, as well as an MRCP. These both showed inflammation around the pancreas and pericholecystic fluid and also fluid around the liver. MRCP showed multiple gallstones, pericholecystic fluid states it could be related to acute pancreatitis, there are bilateral pleural effusions also called bilateral pneumonia, ascites and acute pancreatitis. CTA of the abdomen showed inflammation in the proximal duodenum as well as head of the pancreas with free fluid anterior to the liver margin ascites, pericholecystic fluid, questional bibasilar consolation. Patient's current blood count 18.3 patient was empirically discharged on Cipro IV today. [facility] Medical History (Updated 09/24/22 @ 14:[address] Ahsan Santos, DO) Anxiety Cancer Depression Diabetes mellitus DVT (deep venous thrombosis) History of blood clots Hx of thyroid cancer Hypertension Hypothyroidism Post-menopausal Syncope TIA (transient ischemic attack) Home Medications antiarthritic combination no.2 900 mg tablet (glucosamine-chondroitin) 1 tab PO DAILY SUPPLEMENT 01/24/15 [History Last Taken Unknown] enalapril maleate 20 mg tablet (Vasotec) 20 mg PO BID BP 01/24/15 [History Last Taken 01/31/15 05:00] venlafaxine 150 mg capsule,extended release 24 hr 150 mg PO DAILY 01/24/15 [History Last Taken Unknown] amitriptyline 75 mg tablet 75 mg PO QHS sleep 03/01/22 [History Last Taken Unknown] gabapentin 600 mg tablet 600 mg PO Q8H 03/01/22 [History Last Taken Unknown] meloxicam 15 mg tablet 15 mg PO DAILY 03/01/22 [History Last Taken Unknown] pravastatin 80 mg tablet 80 mg PO DAILY 03/01/22 [History Last Taken Unknown] levothyroxine 137 mcg tablet (Synthroid) 137 mcg PO DAILY THYROID 09/22/22 [History Last Taken Unknown] semaglutide 2 mg/dose (8 mg/3 mL) subcutaneous pen injector (Ozempic) 2 mg sub cut SA 09/22/22 [History Last Taken Unknown] Allergy/AdvReac Type Severity Reaction Status Date / Time Penicillins [PCN] Allergy Anaphylaxis Verified 09/22/22 08:22 vancomycin Allergy Anaphylaxis Verified 09/22/22 08:22 Surgical History History of carpal tunnel release of both wrists Hx of oophorectomy Hx of thyroidectomy Social History Smoking Status: Never smoker alcohol intake: never ROS Constitutional Constitutional: Reports fatigue; Denies fever(s) Eyes Eyes: Denies loss of vision ENT HEENT: Denies hearing loss Cardiovascular Cardiovascular: Denies chest pain Respiratory/Chest Respiratory/Chest: Denies productive cough Gastrointestinal Gastrointestinal: Reports abdominal pain, bloating and nausea Genitourinary Genitourinary: Denies dysuria Musculoskeletal Musculoskeletal: Denies joint swelling Integumentary Integumentary: Reports jaundice Neurologic Neurologic: Denies focal weakness Psychiatric Psychiatric: Denies depression Hematologic/Lymphatic Hematologic/Lymphatic: Denies easy bleeding Physical Exam Const alert General Appearance: cooperative and ill appearing Eyes Eyes Narrative: scleral icterus Resp normal respiratory effort Cardio Rate: tachycardic GI soft to palpation Palpation: tender epigastric, RLQ (minimal), LUQ, RUQ and other (no rebound); Negative for guarding Extremity normal to inspection Skin Skin Narrative: Jaundice Neuro Speech: speech normal Psych Mood & Affect: flat affect Lab / Micro Data 09/23/22 06:31 09/24/22 15:20 Labs: Laboratory Results - last 24 hr 09/23/22 06:31: ESR 6, Total Bilirubin 4.50 H, Direct Bilirubin 3.81 H, Indirect Bilirubin 0.70, Total Creatine Kinase 36, C-React Prot Ext Range 113.00 H, Amylase 881 H, Lipase 1430 H 09/23/22 22:05: POC Glucose 80 09/24/22 05:36: Sodium 139, Potassium 4.4, Chloride 106, Carbon Dioxide 28.0, Anion Gap 5, BUN 12, Creatinine 0.76, Estim Creat Clear Calc 76.55, Est GFR (MDRD) Af Amer 100, Est GFR (MDRD) Non-Af 83, BUN/Creatinine Ratio 15.9, Glucose 133 H, Calcium 7.9 L, Total Bilirubin 5.70 H, AST 117 H, ALT 384 H, Alkaline Phosphatase 78, Ammonia < 10.0 L, Total Protein 5.3 L, Albumin 2.4 L, Globulin 2.9, Albumin/Globulin Ratio 0.8 L 09/24/22 11:43: POC Glucose 86 Radiology Impression MRCP 09/23/22 11:24 IMPRESSION: There are multiple gallstones. Pericholecystic fluid. This can be related to the acute pancreatitis. There are bilateral pleural effusions. There is bilateral pneumonia. Ascites. Acute pancreatitis. Electronically Signed: Elliott Rubio MD at 20:22 EDT , Abdomen CTA 09/23/22 17:18 IMPRESSION: 1. Inflammation surrounding the proximal duodenum as well as the head of the pancreas which may represent duodenitis or pancreatitis. There is also free fluid anterior liver margin ascites. Pericholecystic fluid. 2. Small bilateral effusions and bibasilar consolidation may represent. 3. Widely patent aortic branches. There is no stenosis or occlusion. Electronically Signed: Martinez Cabrera MD at 19:23 EDT , Charges/Coding Visit Charges Inpatient E&M: 31749 Init Hosp L3
--- NOTE | 2022-09-24 12:32 | CASEMGMT ---
According to [facility] website, the following tertiary facilities are in network: [place], [facility], [facility], [facility], [facility], [facility], [place] and .
[2022-09-24 14:09] LABS: Cytoplasmic Ab (C-ANCA) <1:20 titer (Neg:<1:20); Perinuclear Ab (P-ANCA) <1:20 titer (Neg:<1:20)
[2022-09-24] MEDS: oxyCODONE 5 MG Tablet PO (15:23)
--- NOTE | 2022-09-24 15:39 | EKG12_ITS ---
Test Reason : Blood Pressure : / mmHG Vent. Rate : 130 BPM Atrial Rate : 130 BPM P-R Int : 132 ms QRS Dur : 084 ms QT Int : 306 ms P-R-T Axes : 038 005 030 degrees QTc Int : 450 ms Sinus tachycardia Otherwise normal ECG When compared with ECG of 22-SEP-2022 09:20, Vent. rate has increased BY 59 BPM Confirmed by EDEN PEREZ, JUAN JOSE ([id number]), photo editor MINESH BARRERA ([id number]) on 09/28/2022 9:46:11 AM Referred By: MONROE Confirmed By:JUAN JOSE HARMON MD
[2022-09-24 15:56] LABS: Lipase 218 U/L (13-75)
[2022-09-24 16:09] LABS: Anti-Centromere B Ab <0.2 AI (0.0-0.9); Anti-Chromatin <0.2 AI (0.0-0.9); Anti-Jo <0.2 AI (0.0-0.9); Anti-Mitochondrial AB <20.0 Units (0.0-20.0); Anti-Scleroderma-70 AB <0.2 AI (0.0-0.9); Anti-dsDNA Ab <1 IU/mL (0-9); RNP Ab <0.2 AI (0.0-0.9); SJOGREN'S Anti-SS-A test < 0.2 AI (0.0-0.9); SJOGREN'S Anti-SS-B test < 0.2 AI (0.0-0.9); Smith Ab <0.2 AI (0.0-0.9)
[2022-09-24 16:24] LABS: ALB/GLOB Ratio 0.7 RATIO (0.9-2.4); AST(SGOT) 66 U/L (15-37); Alanine Aminotransfer ALT/SGPT 290 U/L (13-56); Albumin, Serum 2.2 g/dL (3.2-5.0); Alkaline Phosphatase 79 U/L (45-117); Anion Gap 5 (5-15); BUN 10 mg/dL (7-18); Calcium,Total 8.1 mg/dL (8.5-10.1); Chloride 105 mmol/L (98-107); Creatinine, Serum 0.91 mg/dL (0.55-1.02); EST Glomerular Filtration Rate 67 mL/min (>60); Est Glom Filt Rate - Afr Amer 81 mL/min (>60); Estimated Creatinine Clearance 63.93 ml/min; Glucose 118 mg/dL (74-106); Potassium 4.1 mmol/L (3.5-5.1); Protein, Total 5.2 g/dL (6.4-8.2); Sodium Level 138 mmol/L (136-145)
[2022-09-24] MEDS: 0.9% Saline Lock 10 ML Syringe IV (16:25)
[2022-09-24 16:26] LABS: Bedside Glucose 111 mg/dL (74-106)
--- NOTE | 2022-09-24 16:50 | RAD_ITS ---
EXAM: XR CHEST, 1 VIEW CLINICAL INDICATION: Tachycardia TECHNIQUE: Frontal view of the chest. COMPARISON: No relevant prior studies available. FINDINGS: LUNGS AND PLEURAL SPACES: Minimal bibasilar airspace disease. No pneumothorax. No effusion. HEART: Unremarkable. Cardiac silhouette not enlarged. MEDIASTINUM: Central airways and mediastinal contour are unremarkable. BONES/JOINTS: Unremarkable. SOFT TISSUES: Unremarkable. UPPER ABDOMEN: There is elevation the right hemidiaphragm. RAD/Chest 1 View (Portable) IMPRESSION: Bibasilar airspace disease may represent atelectasis or pneumonia. There is elevation of the right hemidiaphragm. Electronically Signed: Martinez Cabrera MD at 18:01 EDT ,
[2022-09-24 17:07] LABS: International Normalized Ratio 1.3; Prothrombin Time (Protime)PT. 16.3 SECONDS (11.7-14.9)
--- NOTE | 2022-09-24 17:13 | EX.PCM.PN.GI ---
Subjective Subjective Patient still has a lot of abdominal pain. She underwent multiple test today. She has been afebrile and normotensive to hypertensive. Objective Data Objective Data Vital Signs: Vital Signs Temp Pulse Resp BP Pulse Ox O2 Del Method O2 Flow Rate 97.5 F L 128 H 16 103/53 L 96 Nasal Cannula 2 09/24/22 17:00 09/24/22 17:00 09/24/22 17:00 09/24/22 17:00 09/24/22 17:00 09/24/22 17:00 09/24/22 17:00 Oxygen Flow Rate (L/min) 2 Oxygen Delivery Method Nasal Cannula Weight: 185 lb 6.54 oz Body Mass Index (BMI) 28.8 Intake & Output: Intake and Output for Last 24 Hours 09/22/22 09/23/22 09/24/22 23:59 23:59 23:59 Intake Total 1110 / 1110 2130.00 / 2130.00 2266.67 / 2266.67 Output Total 200 / 200 Balance 1110 / 1110 2130.00 / 2130.00 2066.67 / 2066.67 Lab / Micro Data 09/23/22 06:31 09/24/22 15:20 Labs: Laboratory Results - last 24 hr 09/22/22 16:50: c-ANCA Antibody <1:20, Atypical p-ANCA <1:20, p-ANCA Antibody <1:20 09/22/22 17:10: NICKIE-1 Antibody <0.2, SS-A/Ro IgG Antibody < 0.2, SS-B/La IgG Antibody < 0.2, Sm (Negron) Antibody <0.2, SALON STYLIST Antibody <0.2, Scl-70 Scleroderma Ab <0.2, Double Strand DNA Ab <1, Centromere B Antibody <0.2, Anti-Mitochondrial Ab <20.0 09/23/22 06:31: ESR 6, Total Bilirubin 4.50 H, Direct Bilirubin 3.81 H, Indirect Bilirubin 0.70, Total Creatine Kinase 36, C-React Prot Ext Range 113.00 H, Amylase 881 H, Lipase 1430 H 09/23/22 22:05: POC Glucose 80 09/24/22 05:36: Sodium 139, Potassium 4.4, Chloride 106, Carbon Dioxide 28.0, Anion Gap 5, BUN 12, Creatinine 0.76, Estim Creat Clear Calc 76.55, Est GFR (MDRD) Af Amer 100, Est GFR (MDRD) Non-Af 83, BUN/Creatinine Ratio 15.9, Glucose 133 H, Calcium 7.9 L, Total Bilirubin 5.70 H, AST 117 H, ALT 384 H, Alkaline Phosphatase 78, Ammonia < 10.0 L, Total Protein 5.3 L, Albumin 2.4 L, Globulin 2.9, Albumin/Globulin Ratio 0.8 L 09/24/22 11:43: POC Glucose 86 09/24/22 15:20: Sodium 138, Potassium 4.1, Chloride 105, Carbon Dioxide 28.0, Anion Gap 5, BUN 10, Creatinine 0.91, Estim Creat Clear Calc 63.93, Est GFR (MDRD) Af Amer 81, Est GFR (MDRD) Non-Af 67, BUN/Creatinine Ratio 11.0, Glucose 118 H, Calcium 8.1 L, Total Bilirubin 5.30 H, AST 66 H, ALT 290 H, Alkaline Phosphatase 79, Total Protein 5.2 L, Albumin 2.2 L, Globulin 3.0, Albumin/Globulin Ratio 0.7 L, Lipase 218 H 09/24/22 16:07: POC Glucose 111 H 09/24/22 16:30: PT 16.3 H, INR 1.3 Radiography Diagnostic Testing: Radiology Impression MRCP 09/23/22 11:24 IMPRESSION: There are multiple gallstones. Pericholecystic fluid. This can be related to the acute pancreatitis. There are bilateral pleural effusions. There is bilateral pneumonia. Ascites. Acute pancreatitis. Electronically Signed: Elliott Rubio MD at 20:22 EDT Reading Location ID and State: [facility] / [place] , Service support , Abdomen CTA 09/23/22 17:18 IMPRESSION: 1. Inflammation surrounding the proximal duodenum as well as the head of the pancreas which may represent duodenitis or pancreatitis. There is also free fluid anterior liver margin ascites. Pericholecystic fluid. 2. Small bilateral effusions and bibasilar consolidation may represent. 3. Widely patent aortic branches. There is no stenosis or occlusion. Electronically Signed: Martinez Cabrera MD at 19:23 EDT , Hepatobiliary Scan Nuclear Medicine 09/24/22 11:09 IMPRESSION: Persistent liver uptake without excretion. Liver compromise should be ruled out.. Electronically Signed: Maxime Saucedo MD at 14:36 EDT , Physical Exam Const alert Constitutional Narrative: groggy. Resp normal respiratory effort and no retractions Cardio regular rate, regular rhythm, S1 normal heart sound and S2 normal heart sound GI GI Narrative: epigastric abdominal pain. Extremity normal to inspection Skin Skin Narrative: jaundice. Assessment & Plan Assessment/Plan (1) Liver injury: (2) Pancreatitis: QUALIFIERS: Chronicity: acute Pancreatitis type: unspecified pancreatitis type Acute pancreatitis complication: unspecified Qualified Code(s): K85.90 - Acute pancreatitis without necrosis or infection, unspecified (3) Transaminitis: PLAN: Differential diagnosis for acute hepatitis in the setting of hyperbilirubinemia is ischemic hepatitis in the setting of Gilbert syndrome.She has had some low blood pressures. This is higher, differential diagnosis along with acute viral and nonviral hepatitis such as acute hepatitis A, acute hepatitis B, EBV or CMV, RSV, influenza, HSV. I will give her Mucomyst for acute ischemic hepatitis. Also in the differential diagnosis does include exacerbation of autoimmune hepatitis although that should not give you pain. I do not think she does is secondary to choledocholithiasis as her alk phos is normal and I suspect that when we fractionate the bilirubin will be mostly indirect consistent with Fitzpatrick Bears. Her ESR that order was normal. CRP is pending. Her LDH is pending which is an acute phase reactant consistent with acute liver injury. She will need an INR along with PT and PTT to see how her synthetic function is and I will determine how she does in the near future regarding her liver. This does not seem to have any signs or symptoms of acute Marvel's disease as she has no psychiatric illness and there is no sign of hemolysis on her blood work. Also this is not seem like classical viral hepatitis and she denies any Tylenol. For now we will be supportive care and I recommend to do MRCP for further evaluation. No Tylenol products during this hospitalization. 09/23: Her abdominal pain is making me really think that this is an obstructive physiology. The only other etiology that I can see that was not obstructive involving the biliary tract would be a thrombotic event. I will order a CT angiography to make sure that there is no sign of arterial or venous thrombus. Awaiting MRI. Blood work was sent off for autoimmune hepatitis. Also in the differential diagnosis would be medication induced gastroparesis resulting in nausea vomiting and ischemic hepatitis causing the transaminitis and hyperbilirubinemia. That would correlate with very high AST and ALT and then later 48 to 72 hours and increase in bilirubin. I will fractionate the bilirubin,Check a CPK, repeat ESR, CRP and get a CT angiography as we await the MRI 09/24: She underwent an ultrasound that showed gallstones but no pericholecystic fluid on her presentation with pancreatitis, significant transaminitis and later development of hyperbilirubinemia. Initially we thought that this was possibly ischemic hepatitis secondary to hypotension and choledocholithiasis causing pancreatitis. The hepatobiliary tree was not dilated on initial ultrasound with a common bile duct diameter of 4.8 mm. We ordered an MRI while we send off labs for autoimmune hepatitis, IgG associated hepatitis and pancreatitis, viral hepatitis. MRI does not show any signs of choledocholithiasis or dilated hepatobiliary tree. It does show pericholecystic fluid and gallstones in the gallbladder. We ordered a HIDA scan which had shown increased uptake into the liver without excretion into the hepatobiliary system and I did not feel the gallbladder. This would be consistent with hepatocellular disease. By ultrasound imaging she has an heterogeneous liver consistent with fatty liver disease. I would not think that YOUSSEF would cause that phenomenon in this particular patient. All her labs are coming down which is good however she is still in a lot of pain and likely needs a percutaneous drain of her gallbladder. The patient's son and the patient are okay with getting transferred to a tertiary care center as we do not have the capabilities to place a cholecystostomy tube this weekend. Also she would not benefit from an ERCP. Autoimmune work-up is pending. Continue supportive care. Charges/Coding Visit Charges Inpatient E&M: 13869 Subs Hosp L3
[2022-09-24 17:15] LABS: Troponin-I HS 3 pg/mL (3.0-54.0)
[2022-09-24 17:35] LABS: Ammonia < 10.0 umol/L (11-32)
[2022-09-24] MEDS: 0.9% Normal Saline 1,000 ML 150 ML IV (19:23)
[2022-09-24] MEDS: Heparin Injection (Vial) 5,000 UNIT/ML VIAL 5000 UNIT SC (22:31)
[2022-09-24] MEDS: Venlafaxine XR 150 MG Capsule PO (22:31)
[2022-09-24] MEDS: Venlafaxine XR 75 MG Capsule PO (22:31)
[2022-09-24] MEDS: oxyCODONE HCl Cr 10 MG Tablet PO (22:31)
[2022-09-24 23:14] LABS: Bedside Glucose 120 mg/dL (74-106)
[2022-09-24 23:41] LABS: Bedside Glucose 88 mg/dL (74-106)
[2022-09-25] MEDS: 0.9% Normal Saline 1,000 ML 150 ML IV ×4 (02:24→22:56)
[2022-09-25] MEDS: Ketorolac 15 MG/ML Vial IV (02:24)
[2022-09-25 05:36] VITALS: BMI 28.5
[2022-09-25] MEDS: Gabapentin 300 MG Capsule PO ×2 (06:22→14:54)
[2022-09-25] MEDS: Levothyroxine 137 MCG Tablet PO (06:22)
[2022-09-25 06:43] LABS: Bedside Glucose 82 mg/dL (74-106)
[2022-09-25 06:56] VITALS: BP 122/65; PULSE 92; RESP 18; TEMP 36.5; O2SAT 93
[2022-09-25 07:14] LABS: Absolute Lymphocyte Count 0.51 X10^3/uL (0.83-4.51); Absolute Neutrophil Count 13.6 X10^3/uL (2.0-7.7); Basophil# 0.04 X10^3/uL; Basophil% 0.3 % (0-1); Eosinophil# 0.38 X10^3/uL; Eosinophils% 2.4 % (0-5); Hematocrit 33.6 % (37-47); Hemoglobin 10.2 g/dL (12.0-15.0); Lymphocyte # 0.51 X10^3/ul (0.83-4.51); Lymphocyte % 3.3 % (19-41); Mean Corp Hgb Conc 30.4 g/dL (32-36); Mean Corpuscular Hgb 29.1 pg (27.0-32.0); Mean Platelet Vol. 10.2 fl (6.2-12.0); Monocyte# 0.83 X10^3/uL; Monocyte% 5.3 % (0-10); NRBC Flagged by Analyzer 0 % (0-5); Neutrophil # 13.62 X10^3/uL (2.7-7.7); Neutrophil % 87.7 % (47-70); POSITIVE DIFFERENTIAL YES; Platelet Count 245 K/mm3 (150-450); RBC Distribution Width CV 13.4 % (11.6-14.6); RBC Distribution Width SD 47.6 fl (35.1-43.9); White Blood Count 15.5 K/mm3 (4.4-11.0)
[2022-09-25 07:23] VITALS: O2SAT 97
[2022-09-25 07:39] LABS: ALB/GLOB Ratio 0.6 RATIO (0.9-2.4); AST(SGOT) 33 U/L (15-37); Alanine Aminotransfer ALT/SGPT 197 U/L (13-56); Albumin, Serum 1.9 g/dL (3.2-5.0); Alkaline Phosphatase 78 U/L (45-117); Anion Gap 4 (5-15); BUN 12 mg/dL (7-18); BUN/Creat Ratio 19.2 RATIO (10-20); Calcium,Total 7.9 mg/dL (8.5-10.1); Chloride 108 mmol/L (98-107); Creatinine, Serum 0.62 mg/dL (0.55-1.02); EST Glomerular Filtration Rate 103 mL/min (>60); Est Glom Filt Rate - Afr Amer 125 mL/min (>60); Estimated Creatinine Clearance 93.84 ml/min; Globulin 3.2 g/dL (2.2-4.2); Glucose 108 mg/dL (74-106); Potassium 3.9 mmol/L (3.5-5.1); Protein, Total 5.1 g/dL (6.4-8.2); Sodium Level 140 mmol/L (136-145)
--- NOTE | 2022-09-25 08:02 | PN.HOSP_ITS ---
Reason for Visit Reason for Visit: Diagnoses Calculus of gallbladder without cholecystitis without obstruction (09/22/22) Acute pancreatitis without necrosis or infection, unspecified (09/22/22) Right upper quadrant pain (09/22/22) Unspecified jaundice (09/22/22) Elevation of levels of liver transaminase levels (09/22/22) Unspecified injury of liver, initial encounter (09/22/22) Subjective Subjective Feeling better. Less abdominal pain. Would like to try applesauce. Objective Data Objective Data Vital Signs: Vital Signs Temp Pulse Resp BP Pulse Ox O2 Del Method O2 Flow Rate 36.5 C L 92 18 122/65 H 97 Nasal Cannula 2 09/25/22 06:56 09/25/22 06:56 09/25/22 06:56 09/25/22 06:56 09/25/22 07:23 09/25/22 07:23 09/25/22 07:23 Oxygen Flow Rate (L/min) 2 Oxygen Delivery Method Nasal Cannula Weight: 83.5 kg Body Mass Index (BMI) 28.5 Intake & Output: Intake and Output for Last 24 Hours 09/23/22 09/24/22 09/25/22 23:59 23:59 23:59 Intake Total 2130.00 / 2130.00 2709.17 / 2709.17 1280 / 1280 Output Total 200 / 200 800 / 800 Balance 2130.00 / 2130.00 2509.17 / 2509.17 480 / 480 Lab / Micro Data 09/25/22 06:55 09/25/22 06:55 Labs: Laboratory Results - last 24 hr 09/22/22 16:50: c-ANCA Antibody <1:20, Atypical p-ANCA <1:20, p-ANCA Antibody <1:20 09/22/22 17:10: NICKIE-1 Antibody <0.2, SS-A/Ro IgG Antibody < 0.2, SS-B/La IgG Antibody < 0.2, Sm (Negron) Antibody <0.2, APPLICATION INTEGRATION ENGINEER Antibody <0.2, Scl-70 Scleroderma Ab <0.2, Double Strand DNA Ab <1, Centromere B Antibody <0.2, Anti-Mitochondrial Ab <20.0 09/24/22 05:07: POC Glucose 120 H 09/24/22 11:43: POC Glucose 86 09/24/22 15:20: Sodium 138, Potassium 4.1, Chloride 105, Carbon Dioxide 28.0, Anion Gap 5, BUN 10, Creatinine 0.91, Estim Creat Clear Calc 63.93, Est GFR (MDRD) Af Amer 81, Est GFR (MDRD) Non-Af 67, BUN/Creatinine Ratio 11.0, Glucose 118 H, Calcium 8.1 L, Total Bilirubin 5.30 H, AST 66 H, ALT 290 H, Alkaline Phosphatase 79, Total Protein 5.2 L, Albumin 2.2 L, Globulin 3.0, Albumin/Ashlee bulin Ratio 0.7 L, Lipase 218 H 09/24/22 16:07: POC Glucose 111 H 09/24/22 16:30: PT 16.3 H, INR 1.3, Ammonia < 10.0 L, Troponin I High Sens 3 09/24/22 22:23: POC Glucose 88 09/25/22 06:21: POC Glucose 82 09/25/22 06:55: Sodium 140, Potassium 3.9, Chloride 108 H, Carbon Dioxide 28.0, Anion Gap 4 L, BUN 12, Creatinine 0.62, Estim Creat Clear Calc 93.84, Est GFR (MDRD) Af Amer 125, Est GFR (MDRD) Non-Af 103, BUN/Creatinine Ratio 19.2, Glucose 108 H, Calcium 7.9 L, Total Bilirubin 4.90 H, AST 33, ALT 197 H, Alkaline Phosphatase 78, Total Protein 5.1 L, Albumin 1.9 L, Globulin 3.2, A lbumin/Globulin Ratio 0.6 L Radiography Diagnostic Testing: Radiology Impression Hepatobiliary Scan Nuclear Medicine 09/24/22 11:09 IMPRESSION: Persistent liver uptake without excretion. Liver compromise should be ruled out.. Electronically Signed: Maxime Saucedo MD at 14:36 EDT , Chest X-Ray 09/24/22 16:50 IMPRESSION: Bibasilar airspace disease may represent atelectasis or pneumonia. There is elevation of the right hemidiaphragm. Electronically Signed: Martinez Cabrera MD at 18:01 EDT , Physical Exam Const alert and no apparent distress Constitutional Narrative: more alert and interactive today. Appears much more comfortable. HEENT head/scalp atraumatic and moist oral mucous membranes Resp normal respiratory effort Resp Narrative: bibasilar crackles. Cardio regular rate, regular rhythm, S1 normal heart sound and S2 normal heart sound GI normal to inspection, nondistended, normoactive bowel sounds and soft to palpation GI Narrative: Epigastric tenderness. Extremity normal to inspection Skin Skin Narrative: jaundice. Neuro moves all extremities Sensorium / Orientation: awake and alert Psych affect normal Assessment & Plan Assessment/Plan (1) Transaminitis: PLAN: Acute onset. Currently improving Etiology unclear: iatrogenic 2/2 semaglutide (which is being held) v ischemic hepatitis v viral hepatitis v Gilbert's v gallstone Additionally, holding amitriptyline, meloxicam, pravastatin JANICE Bentley. Concern it may be gallstone related. Consult General Surgery. JANICE Fritz. No clear evidence that this is gallstone hepatitis/pancreatitis. HIDA scan showed no extrecretion, however, the MRCP was not suggestive of an obstructive component. She recommended transfer to tertiary facility to see if pt could be evaluated for liver Bx. Patient has been accepted at [facility]. Awaiting on bed Data: * c-ANCA, p-ANCA negative; other Autoimmune work up pending * Viral hepatitis work up: Hep A IgM (-), Hep B core IgM (-), Hep C Ab negative. CMV and EBV pending. * LDH 570, CRP 8.74 * GB US showed mild hepatomegaly and diffuse fatty infiltration of the liver with focal fatty sparing. Multiple gallstones. CBD measures 4.3mm * MRCP showed multiple gallstones. Pericholecystic fluid. Pancreatitis. * CTA abdomen: inflammation proximal duodenum and head of pancreas. Free fluid anterior liver margin. Small bilateral effusion * HIDA: persistent liver uptake w/o excretion. Liver compromise should be ruled out. * Lipase trend: 48, 1430, 218 * Bilirubin trend: 1.3, 2.3, 4.5, 4.7, 5.7, 5.3, 4.9 * AST trend: 1283, 1036, 597, 117, 66, 33 * ALT trend: 728, 905, 830, 384, 290, 197 * Ammonia <10 x 2 * INR 1.3 (2) Pancreatitis: QUALIFIERS: Acute pancreatitis complication: unspecified Chronicity: acute Pancreatitis type: unspecified pancreatitis type Qualified Code(s): K85.90 - Acute pancreatitis without necrosis or infection, unspecified PLAN: Developed subsequently Supportive mgmt DW Dr. Fritz. Pt had HIDA scan that showed persistent liver uptake but w/o excretion. She recommended transfer to tertiary facility for further evaluation that may include liver biopsy. She does not recommend cholecystotomy tube at this time. (3) Tachycardia: PLAN: improved EKG showed sinus tachycardia Troponin negative Likely reactive due to underlying illness(es) monitor (4) Hypoxia: PLAN: May be multifactorial: splinting plus ATX v pneumonia PEP therapy on empiric ciprofloxacin CXR reviewed. Noted elevation of right hemidiaphragm. Poor inspiratory effort overall. PLAN: Plan Chronic conditions: * Diabetes mellitus type 2: Hold semaglutide admission above. Accu-Chek before meals and cover with Humalog sliding scale. * Hypertension: Blood pressure is in 110s. Patient on enalapril 20 mg twice daily at home decreased to lisinopril 10 mg once daily with holding parameter. * Hypothyroidism, degenerative joint disease of left hip and peripheral neuropathy: Levothyroxine continued. * HLP: holding statin as above. * Resume venlafaxine VTE prophylaxis: SQ heparin Code Status: DNRCCA, no intubation. DW patient's at bedside. Discussed that her condition is improved, though we still do not have a firm diagnosis on its etiology at this time. Charges/Coding Visit Charges Inpatient E&M: 33371 Subs Hosp L3
[2022-09-25 08:13] LABS: International Normalized Ratio 1.2; Prothrombin Time (Protime)PT. 15.6 SECONDS (11.7-14.9)
--- NOTE | 2022-09-25 09:24 | PN.SURG_ITS ---
Subjective Subjective Patient states pain is better this morning, states after getting the Toradol last night patient was able to sleep some as before she was quite agitated. Objective Data Objective Data Vital Signs: Vital Signs Temp Pulse Resp BP Pulse Ox O2 Del Method O2 Flow Rate 97.7 F L 92 18 122/65 H 97 Nasal Cannula 2 09/25/22 06:56 09/25/22 06:56 09/25/22 06:56 09/25/22 06:56 09/25/22 07:23 09/25/22 07:23 09/25/22 07:23 Oxygen Flow Rate (L/min) 2 Oxygen Delivery Method Nasal Cannula Weight: 184 lb 1.376 oz Body Mass Index (BMI) 28.5 Intake & Output: Intake and Output for Last 24 Hours 09/23/22 09/24/22 09/25/22 23:59 23:59 23:59 Intake Total 2130.00 / 2130.00 2709.17 / 2709.17 1280 / 1280 Output Total 200 / 200 800 / 800 Balance 2130.00 / 2130.00 2509.17 / 2509.17 480 / 480 Lab / Micro Data 09/23/22 06:31 09/25/22 06:55 Labs: Laboratory Results - last 24 hr 09/22/22 16:50: c-ANCA Antibody <1:20, Atypical p-ANCA <1:20, p-ANCA Antibody <1:20 09/22/22 17:10: NICKIE-1 Antibody <0.2, SS-A/Ro IgG Antibody < 0.2, SS-B/La IgG Antibody < 0.2, Sm (Negron) Antibody <0.2, ASSEMBLY MACHINE SET UP MECHANIC Antibody <0.2, Scl-70 Scleroderma Ab <0.2, Double Strand DNA Ab <1, Centromere B Antibody <0.2, Anti-Mitochondrial Ab <20.0 09/24/22 05:07: POC Glucose 120 H 09/24/22 11:43: POC Glucose 86 09/24/22 15:20: Sodium 138, Potassium 4.1, Chloride 105, Carbon Dioxide 28.0, Anion Gap 5, BUN 10, Creatinine 0.91, Estim Creat Clear Calc 63.93, Est GFR (MDRD) Af Amer 81, Est GFR (MDRD) Non-Af 67, BUN/Creatinine Ratio 11.0, Glucose 118 H, Calcium 8.1 L, Total Bilirubin 5.30 H, AST 66 H, ALT 290 H, Alkaline Phosphatase 79, Total Protein 5.2 L, Albumin 2.2 L, Globulin 3.0, Albumin/Globulin Ratio 0.7 L, Lipase 218 H 09/24/22 16:07: POC Glucose 111 H 09/24/22 16:30: PT 16.3 H, INR 1.3, Ammonia < 10.0 L, Troponin I High Sens 3 09/24/22 22:23: POC Glucose 88 09/25/22 06:21: POC Glucose 82 09/25/22 06:55: Sodium 140, Potassium 3.9, Chloride 108 H, Carbon Dioxide 28.0, Anion Gap 4 L, BUN 12, Creatinine 0.62, Estim Creat Clear Calc 93.84, Est GFR (MDRD) Af Amer 125, Est GFR (MDRD) Non-Af 103, BUN/Creatinine Ratio 19.2, Glucose 108 H, Calcium 7.9 L, Total Bilirubin 4.90 H, AST 33, ALT 197 H, Alkaline Phosphatase 78, Total Protein 5.1 L, Albumin 1.9 L, Globulin 3.2, Albumin/Globulin Ratio 0.6 L 09/25/22 07:28: PT 15.6 H, INR 1.2 Radiography Diagnostic Testing: Radiology Impression Hepatobiliary Scan Nuclear Medicine 09/24/22 11:09 IMPRESSION: Persistent liver uptake without excretion. Liver compromise should be ruled out.. Electronically Signed: Maxime Saucedo MD at 14:36 EDT , Chest X-Ray 09/24/22 16:50 IMPRESSION: Bibasilar airspace disease may represent atelectasis or pneumonia. There is elevation of the right hemidiaphragm. Electronically Signed: Martinez Cabrera MD at 18:01 EDT , Physical Exam Const Constitutional Narrative: Alert and oriented Resp normal respiratory effort Cardio regular rate GI soft to palpation GI Narrative: No tenderness to palpation on light or normal palpation, no peritoneal signs Inspection: Negative for abdominal distention Assessment & Plan Assessment/Plan (1) Cholelithiasis: (2) Transaminitis: (3) Total bilirubin, elevated: (4) Pancreatitis: QUALIFIERS: Chronicity: acute Pancreatitis type: unspecified pancreatitis type Acute pancreatitis complication: unspecified Qualified Code(s): K85.90 - Acute pancreatitis without necrosis or infection, unspecified PLAN: Plan Awaiting transfer bed at [facility]. Continue n.p.o./IV fluids Patient's total bili has improved from 5.7-4.9 alk phos and AST are also continued to decrease. Patient white blood cell count is pending, patient was started yesterday on empiric Cipro. We will add Toradol as needed for additional pain control if needed to maybe avoid additional narcotics. Marcela Fritz M.D. Pager: [phone] [facility] [address] [place] [address], [address] [place] [address] Office: [phone] Charges/Coding Visit Charges Inpatient E&M: 70006 Subs Hosp L2
[2022-09-25 09:34] LABS: Differential Indicated SCAN CRITERIA MET
[2022-09-25] MEDS: Ketorolac 15 MG/ML Vial IM ×3 (10:11→22:51)
[2022-09-25] MEDS: Heparin Injection (Vial) 5,000 UNIT/ML VIAL 5000 UNIT SC ×2 (10:22→22:16)
[2022-09-25 10:47] LABS: Differential Comment SCANNED
[2022-09-25] MEDS: Ciprofloxacin 400 MG/200 ML BAG 200 MG IV ×2 (11:18→22:15)
[2022-09-25 12:51] LABS: Bedside Glucose 90 mg/dL (74-106)
[2022-09-25 13:00] VITALS: BP 125/61; PULSE 97; RESP 18; TEMP 36.3; O2SAT 97
[2022-09-25] MEDS: HYDROmorphone 0.5 MG/0.5 ML SYRINGE IV ×2 (14:54→20:01)
[2022-09-25] MEDS: 0.9% Saline Lock 10 ML Syringe IV (14:55)
[2022-09-25 20:04] VITALS: BP 132/80; PULSE 107; RESP 18; TEMP 36.9; O2SAT 96
[2022-09-25 21:31] LABS: Bedside Glucose 80 mg/dL (74-106)
[2022-09-25] MEDS: Venlafaxine XR 150 MG Capsule PO (22:13)
[2022-09-25] MEDS: Venlafaxine XR 75 MG Capsule PO (22:13)
[2022-09-25] MEDS: Polyethylene Glycol 3350 17 GM PACKET PO (22:14)
[2022-09-25] MEDS: Gabapentin 600 MG Tablet PO (22:17)
[2022-09-25 22:44] LABS: Bedside Glucose 102 mg/dL (74-106)
[2022-09-26] MEDS: HYDROmorphone 0.5 MG/0.5 ML SYRINGE IV ×3 (02:38→23:31)
[2022-09-26 02:40] VITALS: BP 123/71; PULSE 104; RESP 18; TEMP 36.5; O2SAT 98
[2022-09-26 05:33] VITALS: BMI 31.7
[2022-09-26] MEDS: Ketorolac 15 MG/ML Vial IM ×3 (05:45→18:00)
[2022-09-26] MEDS: 0.9% Normal Saline 1,000 ML 150 ML IV ×3 (05:46→20:18)
[2022-09-26] MEDS: Gabapentin 600 MG Tablet PO ×3 (05:51→22:13)
[2022-09-26] MEDS: Levothyroxine 137 MCG Tablet PO (05:51)
[2022-09-26 07:25] VITALS: O2SAT 95
--- NOTE | 2022-09-26 07:36 | PN.HOSP_ITS ---
Reason for Visit Reason for Visit: Diagnoses Calculus of gallbladder without cholecystitis without obstruction (09/22/22) Acute pancreatitis without necrosis or infection, unspecified (09/22/22) Tachycardia, unspecified (09/22/22) Hypoxemia (09/22/22) Right upper quadrant pain (09/22/22) Unspecified jaundice (09/22/22) Elevation of levels of liver transaminase levels (09/22/22) Unspecified injury of liver, initial encounter (09/22/22) Subjective Subjective Feeling better. Still with abdominal pain. No appetite. Objective Data Objective Data Vital Signs: Vital Signs Temp Pulse Resp BP Pulse Ox O2 Del Method O2 Flow Rate 36.5 C L 104 H 18 123/71 H 95 Nasal Cannula 2 09/26/22 02:40 09/26/22 02:40 09/26/22 02:40 09/26/22 02:40 09/26/22 07:25 09/26/22 07:25 09/26/22 07:25 Oxygen Flow Rate (L/min) 2 Oxygen Delivery Method Nasal Cannula Weight: 92.9 kg Body Mass Index (BMI) 31.7 Intake & Output: Intake and Output for Last 24 Hours 09/24/22 09/25/22 09/26/22 23:59 23:59 23:59 Intake Total 2709.17 / 2709.17 5010 / 5010 2100 / 2100 Output Total 200 / 200 800 / 800 1100 / 1100 Balance 2509.17 / 2509.17 4210 / 4210 1000 / 1000 Lab / Micro Data 09/26/22 08:30 09/26/22 08:30 Labs: Laboratory Results - last 24 hr 09/25/22 06:55: WBC 15.5 H, RBC 3.50 L, Hgb 10.2 L, Hct 33.6 L, MCV 96.0, MCH 29.1, MCHC 30.4 L, RDW Std Deviation 47.6 H, RDW Coeff of Charan 13.4, Plt Count 245, MPV 10.2, Immature Gran % (Auto) 1.000 H, Neut % (Auto) 87.7 H, Lymph % (Auto) 3.3 L, [place] % (Auto) 5.3, Eos % (Auto) 2.4, Baso % (Auto) 0.3, Absolute Neuts (auto) 13.6 H, Absolute Lymphs (auto) 0.51 L, Nucleated RBC % 0, Differential Comment SCANNED, Sodium 140, Potassium 3.9, Chloride 108 H, Carbon Dioxide 28.0, Anion Gap 4 L, BUN 12, Creatinine 0.62, Estim Creat Clear Calc 93.84, Est GFR (MDRD) Af Amer 125, Est GFR (MDRD) Non-Af 103, BUN/Creatinine Ratio 19.2, Glucose 108 H, Calcium 7.9 L, Total Bilirubin 4.90 H, AST 33, ALT 197 H, Alkaline Phosphatase 78, Total Protein 5.1 L, Albumin 1.9 L, Globulin 3.2, Albumin/Globulin Ratio 0.6 L 09/25/22 07:28: PT 15.6 H, INR 1.2 09/25/22 11:23: POC Glucose 90 09/25/22 17:04: POC Glucose 80 09/25/22 22:06: POC Glucose 102 Physical Exam Const alert and no apparent distress HEENT head/scalp atraumatic and moist oral mucous membranes Resp normal respiratory effort and no retractions Resp Narrative: few bibasilar crackles. Cardio regular rate, regular rhythm, S1 normal heart sound and S2 normal heart sound GI normal to inspection, nondistended, normoactive bowel sounds, soft to palpation and non-distended Extremity normal to inspection Skin Skin Narrative: jaundice Neuro moves all extremities Sensorium / Orientation: awake and alert Psych affect normal Assessment & Plan Assessment/Plan (1) Transaminitis: PLAN: Acute onset. Currently improving Etiology unclear: iatrogenic 2/2 semaglutide (which is being held) v ischemic hepatitis v viral hepatitis v Gilbert's v gallstone Additionally, holding amitriptyline, meloxicam, pravastatin JANICE Bentley. Concern it may be gallstone related. Consult General Surgery. JANICE Fritz. No clear evidence that this is gallstone hepatitis/pancreatitis. HIDA scan showed no extrecretion, however, the MRCP was not suggestive of an obstructive component. She recommended transfer to tertiary facility to see if pt could be evaluated for liver Bx. Patient has been accepted at [facility]. Canceling transfer as she is improved after 2 days. JANICE Fritz. Data: * c-ANCA, p-ANCA negative; other Autoimmune work up pending * Viral hepatitis work up: Hep A IgM (-), Hep B core IgM (-), Hep C Ab negative. CMV and EBV pending. * LDH 570, CRP 8.74 * GB US showed mild hepatomegaly and diffuse fatty infiltration of the liver w ith focal fatty sparing. Multiple gallstones. CBD measures 4.3mm * MRCP showed multiple gallstones. Pericholecystic fluid. Pancreatitis. * CTA abdomen: inflammation proximal duodenum and head of pancreas. Free fluid anterior liver margin. Small bilateral effusion * HIDA: persistent liver uptake w/o excretion. Liver compromise should be ruled out. * Lipase trend: 48, 1430, 218 * Bilirubin trend: 1.3, 2.3, 4.5, 4.7, 5.7, 5.3, 4.9, 4.4 * AST trend: 1283, 1036, 597, 117, 66, 33, 23 * ALT trend: 728, 905, 830, 384, 290, 197, 122 * Ammonia <10 x 2 * INR 1.3 to 1.1 * Will order liver biopsy. (2) Pancreatitis: QUALIFIERS: Acute pancreatitis complication: unspecified Chronicity: acute Pancreatitis type: unspecified pancreatitis type Qualified Code(s): K85.90 - Acute pancreatitis without necrosis or infection, unspecified PLAN: Developed subsequently Supportive mgmt DW Dr. Fritz. Pt had HIDA scan that showed persistent liver uptake but w/o excretion. She recommended transfer to tertiary facility for further evaluation that may include liver biopsy. She does not recommend cholecystotomy tube at this time. (3) Tachycardia: PLAN: improved EKG showed sinus tachycardia Troponin negative Likely reactive due to underlying illness(es) monitor (4) Hypoxia: PLAN: May be multifactorial: splinting plus ATX v pneumonia PEP therapy on empiric ciprofloxacin CXR reviewed. Noted elevation of right hemidiaphragm. PLAN: Plan Chronic conditions: * Diabetes mellitus type 2: Hold semaglutide admission above. Accu-Chek before meals and cover with Humalog sliding scale. * Hypertension: Blood pressure is in 110s. Patient on enalapril 20 mg twice daily at home decreased to lisinopril 10 mg once daily with holding parameter. * Hypothyroidism, degenerative joint disease of left hip and peripheral neuropathy: Levothyroxine continued. * HLP: holding statin as above. * Resume venlafaxine VTE prophylaxis: SQ heparin Code Status: DNRCCA, no intubation. DW patient's at bedside. Discussed that her condition is improved. Given her improving condition and no time frame for accepting at [facility], she and her would like to cancel the transfer. I feel that is reasonable as she clinically much improved. Charges/Coding Visit Charges Inpatient E&M: 62194 Subs Hosp L3
[2022-09-26] MEDS: HYDROmorphone Inj 0.2 MG/ML SYRINGE IV ×2 (08:39→15:00)
[2022-09-26 08:45] VITALS: BP 157/81; PULSE 91; RESP 18; TEMP 36.4; O2SAT 97
[2022-09-26 08:47] LABS: Absolute Lymphocyte Count 0.49 X10^3/uL (0.83-4.51); Absolute Neutrophil Count 10.8 X10^3/uL (2.0-7.7); Basophil# 0.03 X10^3/uL; Basophil% 0.2 % (0-1); Eosinophil# 0.38 X10^3/uL; Eosinophils% 2.9 % (0-5); Hematocrit 31.4 % (37-47); Hemoglobin 9.6 g/dL (12.0-15.0); Lymphocyte # 0.49 X10^3/ul (0.83-4.51); Lymphocyte % 3.8 % (19-41); Mean Corp Hgb Conc 30.6 g/dL (32-36); Mean Corpuscular Hgb 29.4 pg (27.0-32.0); Mean Platelet Vol. 9.9 fl (6.2-12.0); Monocyte# 1.12 X10^3/uL; Monocyte% 8.7 % (0-10); NRBC Flagged by Analyzer 0 % (0-5); Neutrophil # 10.84 X10^3/uL (2.7-7.7); Neutrophil % 83.9 % (47-70); POSITIVE DIFFERENTIAL YES; Platelet Count 271 K/mm3 (150-450); RBC Distribution Width CV 13.6 % (11.6-14.6); RBC Distribution Width SD 48.5 fl (35.1-43.9); Red Blood Count 3.27 M/mm3 (4.2-5.4); White Blood Count 12.9 K/mm3 (4.4-11.0)
[2022-09-26 09:02] LABS: Differential Indicated SCAN CRITERIA MET
[2022-09-26 09:12] LABS: ALB/GLOB Ratio 0.6 RATIO (0.9-2.4); AST(SGOT) 23 U/L (15-37); Alanine Aminotransfer ALT/SGPT 122 U/L (13-56); Albumin, Serum 1.8 g/dL (3.2-5.0); Alkaline Phosphatase 77 U/L (45-117); Anion Gap 3 (5-15); BUN 15 mg/dL (7-18); BUN/Creat Ratio 25.2 RATIO (10-20); Calcium,Total 8.2 mg/dL (8.5-10.1); Chloride 109 mmol/L (98-107); EST Glomerular Filtration Rate 109 mL/min (>60); Est Glom Filt Rate - Afr Amer 132 mL/min (>60); Estimated Creatinine Clearance 96.96 ml/min; Globulin 3.2 g/dL (2.2-4.2); Glucose 112 mg/dL (74-106); Potassium 3.9 mmol/L (3.5-5.1); Sodium Level 140 mmol/L (136-145)
[2022-09-26 09:37] LABS: International Normalized Ratio 1.1; Prothrombin Time (Protime)PT. 14.6 SECONDS (11.7-14.9)
[2022-09-26 09:49] LABS: Differential Comment SCANNED
[2022-09-26] MEDS: Polyethylene Glycol 3350 17 GM PACKET PO (10:18)
[2022-09-26] MEDS: Heparin Injection (Vial) 5,000 UNIT/ML VIAL 5000 UNIT SC ×2 (10:18→22:13)
[2022-09-26] MEDS: Lisinopril 10 MG Tablet PO (10:18)
[2022-09-26] MEDS: Ciprofloxacin 400 MG/200 ML BAG 200 MG IV ×2 (10:58→22:12)
--- NOTE | 2022-09-26 11:38 | PN.SURG_ITS ---
Subjective Subjective pt pain still improved, wbc and TB trending down; currently no transfer bed Objective Data Objective Data Vital Signs: Vital Signs Temp Pulse Resp BP Pulse Ox O2 Del Method O2 Flow Rate 97.5 F L 91 18 157/81 H 97 Nasal Cannula 2 09/26/22 08:45 09/26/22 08:45 09/26/22 08:45 09/26/22 08:45 09/26/22 08:45 09/26/22 08:45 09/26/22 08:45 Oxygen Flow Rate (L/min) 2 Oxygen Delivery Method Nasal Cannula Weight: 204 lb 12.951 oz Body Mass Index (BMI) 31.7 Intake & Output: Intake and Output for Last 24 Hours 09/24/22 09/25/22 09/26/22 23:59 23:59 23:59 Intake Total 2709.17 / 2709.17 5010 / 5010 2100 / 2100 Output Total 200 / 200 800 / 800 1100 / 1100 Balance 2509.17 / 2509.17 4210 / 4210 1000 / 1000 Lab / Micro Data 09/26/22 08:30 09/26/22 08:30 Labs: Laboratory Results - last 24 hr 09/25/22 11:23: POC Glucose 90 09/25/22 17:04: POC Glucose 80 09/25/22 22:06: POC Glucose 102 09/26/22 08:30: WBC 12.9 H, RBC 3.27 L, Hgb 9.6 L, Hct 31.4 L, MCV 96.0, MCH 29 .4, MCHC 30.6 L, RDW Std Deviation 48.5 H, RDW Coeff of Charan 13.6, Plt Count 271, MPV 9.9, Immature Gran % (Auto) 0.500, Neut % (Auto) 83.9 H, Lymph % (Auto) 3.8 L, [place] % (Auto) 8.7, Eos % (Auto) 2.9, Baso % (Auto) 0.2, Absolute Neuts (auto) 10.8 H, Absolute Lymphs (auto) 0.49 L, Nucleated RBC % 0, Differential Comment SCANNED, PT 14.6, INR 1.1, Sodium 140, Potassium 3.9, Chloride 109 H, Carbon Dioxide 28.0, Anion Gap 3 L, BUN 15, Creatinine 0.60, Estim Creat Clear Calc 96.96, Est GFR (MDRD) Af Amer 132, Est GFR (MDRD) Non-Af 109, BUN/Creatinine Ratio 25.2 H, Glucose 112 H, Calcium 8.2 L, Total Bilirubin 4.40 H, AST 23, ALT 122 H, Alkaline Phosphatase 77, Total Protein 5.0 L, Albumin 1.8 L, Globulin 3.2, Albumin/Globulin Ratio 0.6 L Physical Exam Const Constitutional Narrative: Alert and oriented Resp normal respiratory effort Cardio regular rate GI soft to palpation GI Narrative: No tenderness to palpation on light or normal palpation, no peritoneal signs Inspection: Negative for abdominal distention Assessment & Plan Assessment/Plan (1) Cholelithiasis: (2) Transaminitis: (3) Total bilirubin, elevated: (4) Pancreatitis: QUALIFIERS: Chronicity: acute Pancreatitis type: unspecified pancreatitis type Acute pancreatitis complication: unspecified Qualified Code(s): K85.90 - Acute pancreatitis without necrosis or infection, unspecified PLAN: Plan transfer cancelled as no bed currently and pt improving Will plan for liver biopsy tuesday- TB down to 4.4 from 4.9 WBC 12 from 15 no pain on exam Marcela Fritz M.D. Pager: [phone] [facility] [address] [place] [address], [facility], [address] [place] [address] Office: [phone] Charges/Coding Visit Charges Inpatient E&M: 98466 Subs Hosp L2
[2022-09-26 14:45] VITALS: BP 149/82; PULSE 97; RESP 17; TEMP 36.4; O2SAT 95
[2022-09-26 20:04] VITALS: BP 151/73; PULSE 92; RESP 16; TEMP 36.6; O2SAT 99
[2022-09-26] MEDS: Venlafaxine XR 75 MG Capsule PO (22:13)
[2022-09-26] MEDS: MELATONIN 3 MG TABLET PO (22:13)
[2022-09-26] MEDS: Venlafaxine XR 150 MG Capsule PO (22:13)
[2022-09-26] MEDS: Insulin Lispro 100 UNIT/ML INSULN.PEN SC (22:26)
[2022-09-27] VITALS (7 sets, daily range): BP systolic 141–149; BP diastolic 61–85; PULSE 80–93; RESP 18; TEMP 36.6–36.9; O2SAT 94–99; BMI 33.0
[2022-09-27] MEDS: Ketorolac 15 MG/ML Vial IV ×2 (03:12→11:55)
[2022-09-27] MEDS: 0.9% Normal Saline 1,000 ML 150 ML IV ×3 (03:13→19:11)
[2022-09-27 06:16] LABS: Absolute Lymphocyte Count 0.82 X10^3/uL (0.83-4.51); Absolute Neutrophil Count 9.7 X10^3/uL (2.0-7.7); Basophil# 0.05 X10^3/uL; Basophil% 0.4 % (0-1); Eosinophil# 0.45 X10^3/uL; Eosinophils% 3.6 % (0-5); Hematocrit 30.5 % (37-47); Hemoglobin 9.7 g/dL (12.0-15.0); Lymphocyte # 0.82 X10^3/ul (0.83-4.51); Lymphocyte % 6.6 % (19-41); Mean Corp Hgb Conc 31.8 g/dL (32-36); Mean Corpuscular Hgb 29.7 pg (27.0-32.0); Mean Corpuscular Volume 93.3 fL (81-99); Mean Platelet Vol. 9.5 fl (6.2-12.0); Monocyte# 1.25 X10^3/uL; Monocyte% 10.1 % (0-10); NRBC Flagged by Analyzer 0 % (0-5); Neutrophil # 9.72 X10^3/uL (2.7-7.7); Neutrophil % 78.4 % (47-70); Platelet Count 332 K/mm3 (150-450); RBC Distribution Width CV 13.9 % (11.6-14.6); RBC Distribution Width SD 47.4 fl (35.1-43.9); Red Blood Count 3.27 M/mm3 (4.2-5.4); White Blood Count 12.4 K/mm3 (4.4-11.0)
[2022-09-27 06:48] LABS: ALB/GLOB Ratio 0.5 RATIO (0.9-2.4); AST(SGOT) 30 U/L (15-37); Alanine Aminotransfer ALT/SGPT 94 U/L (13-56); Albumin, Serum 1.7 g/dL (3.2-5.0); Alkaline Phosphatase 88 U/L (45-117); Anion Gap 4 (5-15); BUN 16 mg/dL (7-18); BUN/Creat Ratio 28.7 RATIO (10-20); Calcium,Total 8.2 mg/dL (8.5-10.1); Chloride 111 mmol/L (98-107); Creatinine, Serum 0.56 mg/dL (0.55-1.02); EST Glomerular Filtration Rate 118 mL/min (>60); Est Glom Filt Rate - Afr Amer 142 mL/min (>60); Estimated Creatinine Clearance 103.89 ml/min; Globulin 3.4 g/dL (2.2-4.2); Glucose 118 mg/dL (74-106); Potassium 3.5 mmol/L (3.5-5.1); Protein, Total 5.1 g/dL (6.4-8.2); Sodium Level 141 mmol/L (136-145)
[2022-09-27] MEDS: Gabapentin 600 MG Tablet PO ×3 (06:50→22:04)
[2022-09-27 08:07] LABS: Anti-Smooth Muscle ABS 5 Units (0-19); CMV Acute Antibody IgM < 30.0 AU/mL (0.0-29.9); EBV Acute VCA IgM < 36.0 U/mL (0.0-35.9); EBV Nuclear Antigen IgG 23.8 U/mL (0.0-17.9); Immunoglobulin A 151 mg/dL (87-352); Immunoglobulin E 3 IU/mL (6-495); Immunoglobulin G 671 mg/dL (586-1602); Immunoglobulin M 66 mg/dL (26-217)
[2022-09-27] MEDS: HYDROmorphone 0.5 MG/0.5 ML SYRINGE IV ×3 (08:18→22:05)
--- NOTE | 2022-09-27 08:23 | PN.HOSP_ITS ---
Reason for Visit Reason for Visit: Diagnoses Calculus of gallbladder without cholecystitis without obstruction (09/22/22) Acute pancreatitis without necrosis or infection, unspecified (09/22/22) Tachycardia, unspecified (09/22/22) Hypoxemia (09/22/22) Right upper quadrant pain (09/22/22) Unspecified jaundice (09/22/22) Elevation of levels of liver transaminase levels (09/22/22) Unspecified injury of liver, initial encounter (09/22/22) Subjective Subjective Patient is a 61-year-old female who presented with abdominal pain found to have elevated liver enzymes Objective Data Objective Data Vital Signs: Vital Signs Temp Pulse Resp BP Pulse Ox O2 Del Method O2 Flow Rate 98.1 F 93 18 145/79 H 98 Nasal Cannula 2 09/27/22 03:07 09/27/22 03:07 09/27/22 03:07 09/27/22 03:07 09/27/22 03:07 09/27/22 03:17 09/27/22 03:17 Oxygen Flow Rate (L/min) 2 Oxygen Delivery Method Nasal Cannula Weight: 96.5 kg Body Mass Index (BMI) 33.0 Intake & Output: Intake and Output for Last 24 Hours 09/25/22 09/26/22 09/27/22 23:59 23:59 23:59 Intake Total 5010 / 5010 5057.5 / 5057.5 1500 / 1500 Output Total 800 / 800 1100 / 1100 Balance 4210 / 4210 3957.5 / 3957.5 1500 / 1500 Lab / Micro Data 09/27/22 06:00 09/27/22 06:00 Labs: Laboratory Results - last 24 hr 09/22/22 17:10: IgG 671, IgA 151, IgM 66, IgE 3 L, Anti-Smooth Muscle Ab 5, CMV IgM Ab < 30.0, EBV Capsid Ag IgG Ab 246.0 H, EBV Capsid Ag IgM Ab < 36.0, EBV Nuclear Ag IgG Ab 23.8 H, EBV Antibody Interp Comment 09/26/22 08:30: WBC 12.9 H, RBC 3.27 L, Hgb 9.6 L, Hct 31.4 L, MCV 96.0, MCH 29.4, MCHC 30.6 L, RDW Std Deviation 48.5 H, RDW Coeff of Charan 13.6, Plt Count 271, MPV 9.9, Immature Gran % (Auto) 0.500, Neut % (Auto) 83.9 H, Lymph % (Auto) 3.8 L, [place] % (Auto) 8.7, Eos % (Auto) 2.9, Baso % (Auto) 0.2, Absolute Neuts (auto) 10.8 H, Absolute Lymphs (auto) 0.49 L, Nucleated RBC % 0, Differential Comment SCANNED, PT 14.6, INR 1.1, Sodium 140, Potassium 3.9, Chloride 109 H, Carbon Dioxide 28.0, Anion Gap 3 L, BUN 15, Creatinine 0.60, Estim Creat Clear Calc 96.96, Est GFR (MDRD) Af Amer 132, Est GFR (MDRD) Non-Af 109, BUN/Creatinine Ratio 25.2 H, Glucose 112 H, Calcium 8.2 L, Total Bilirubin 4.40 H, AST 23, ALT 122 H, Alkaline Phosphatase 77, Total Protein 5.0 L, Albumin 1.8 L, Globulin 3.2, Albumin/Globulin Ratio 0.6 L 09/27/22 06:00: WBC 12.4 H, RBC 3.27 L, Hgb 9.7 L, Hct 30.5 L, MCV 93.3, MCH 29.7, MCHC 31.8 L, RDW Std Deviation 47.4 H, RDW Coeff of Charan 13.9, Plt Count 332, MPV 9.5, Immature Gran % (Auto) 0.900, Neut % (Auto) 78.4 H, Lymph % (Auto) 6.6 L, [place] % (Auto) 10.1 H, Eos % (Auto) 3.6, Baso % (Auto) 0.4, Absolute Neuts (auto) 9.7 H, Absolute Lymphs (auto) 0.82 L, Nucleated RBC % 0, Sodium 141, Potassium 3.5, Chloride 111 H, Carbon Dioxide 26.0, Anion Gap 4 L, BUN 16, Creatinine 0.56, Estim Creat Clear Calc 103.89, Est GFR (MDRD) Af Amer 142, Est GFR (MDRD) Non-Af 118, BUN/Creatinine Ratio 28.7 H, Glucose 118 H, Calcium 8.2 L , Total Bilirubin 3.90 H, AST 30, ALT 94 H, Alkaline Phosphatase 88, Total Protein 5.1 L, Albumin 1.7 L, Globulin 3.4, Albumin/Globulin Ratio 0.5 L Physical Exam Narrative GENERAL: cooperative HEENT: Atraumatic; normocephalic EYES; Anicteric, Normal Conjunctiva NECK; supple, normal thyroid, RESPIRATORY: Diminished to auscultation CARDIOVASCULAR: Regular S1 S2, GI: soft, normoactive bowel sounds, : No Renal angle tenderness; EXTREMITIES: No edema, no clubbing, MUSCULOSKELETAL: no muscle wasting NEURO: Awake; no lateralizing signs. SKIN: No Rash PSYCH; Flat affect Assessment & Plan Assessment/Plan (1) Liver injury: QUALIFIERS: Encounter type: initial encounter Qualified Code(s): S36.119A - Unspecified injury of liver, initial encounter PLAN: Plan Patient is a 61-year-old female who presented with abdominal pain found to have elevated liver enzymes 1. Acute transaminitis ? Thought to be iatrogenic from semaglutide which has been held. Differential diagnoses include ischemic of otitis, viral appetite is as well as Gilbert's. Admitted to regular nursing floor where patient is currently being monitored. Plan was for patient to have been transferred to [facility] for biopsy patient condition however did not improve resulting in patient transfer being discontinued plan is for patient to undergo CT-guided biopsy 2. Diabetes mellitus type II -patient's oral hypoglycemics held. Placed on long acting insulin, Accu-Cheks a.c. and at bedtime and covered with sliding scale insulin 3. Hypothyroidism - Patient is on levothyroxine home dose continued 4. Hypertension - Blood pressure controlled, home medications continued with dose adjustment as needed 5. Dyslipidemia ? Status held given patient acute transaminitis 6. Depression ? Patient is on venlafaxine did continue 7. Class I obesity with BMI of 32.8 Weight loss advised 8. DVT prophylaxis ? SC heparin Time spent in the patient's overall evaluation,decision-making process, review of diagnostic data, adjustment of management, discussion with other providers, nursing nursing and ancillary staff involved in patient's care documentation, 50 Minutes Charges/Coding Visit Charges Inpatient E&M: [id number] [facility] [[email or web address]] Hosp L3
[2022-09-27] MEDS: Ondansetron 4 MG/2 ML Vial IV (08:24)
--- NOTE | 2022-09-27 08:28 | NURSING ---
[facility] transfer center called this nurse and requested update on vital signs and labs.
--- NOTE | 2022-09-27 10:06 | PCM.PN.SRG ---
Subjective Subjective Patient is a 61 y/o F I am following in conjunction with Dr. Fritz. Patient denies any abdominal pain. Her main compliant is back pain from the bed. She verbalizes that she is getting tired of being in the hospital and would like to go home today. She notes mentally it is becoming a burden sitting in the hospital. Objective Data Objective Data Vital Signs: Vital Signs Temp Pulse Resp BP Pulse Ox O2 Del Method O2 Flow Rate 98.4 F 91 18 141/61 H 95 Nasal Cannula 2 09/27/22 08:20 09/27/22 08:20 09/27/22 08:20 09/27/22 08:20 09/27/22 08:20 09/27/22 08:32 09/27/22 08:32 Oxygen Flow Rate (L/min) 2 Oxygen Delivery Method Nasal Cannula Weight: 212 lb 11.937 oz Body Mass Index (BMI) 33.0 Intake & Output: Intake and Output for Last 24 Hours 09/25/22 09/26/22 09/27/22 23:59 23:59 23:59 Intake Total 5010 / 5010 5057.5 / 5057.5 1500 / 1500 Output Total 800 / 800 1100 / 1100 Balance 4210 / 4210 3957.5 / 3957.5 1500 / 1500 Lab / Micro Data 09/27/22 06:00 09/27/22 06:00 Labs: Laboratory Results - last 24 hr 09/22/22 17:10: IgG 671, IgA 151, IgM 66, IgE 3 L, Anti-Smooth Muscle Ab 5, CMV IgM Ab < 30.0, EBV Capsid Ag IgG Ab 246.0 H, EBV Capsid Ag IgM Ab < 36.0, EBV Nuclear Ag IgG Ab 23.8 H, EBV Antibody Interp Comment 09/27/22 06:00: WBC 12.4 H, RBC 3.27 L, Hgb 9.7 L, Hct 30.5 L, MCV 93.3, MCH 29.7, MCHC 31.8 L, RDW Std Deviation 47.4 H, RDW Coeff of Charan 13.9, Plt Count 332, MPV 9.5, Immature Gran % (Auto) 0.900, Neut % (Auto) 78.4 H, Lymph % (Auto) 6.6 L, [place] % (Auto) 10.1 H, Eos % (Auto) 3.6, Baso % (Auto) 0.4, Absolute Neuts (auto) 9.7 H, Absolute Lymphs (auto) 0.82 L, Nucleated RBC % 0, Sodium 141, Potassium 3.5, Chloride 111 H, Carbon Dioxide 26.0, Anion Gap 4 L, BUN 16, Creatinine 0.56, Estim Creat Clear Calc 103.89, Est GFR (MDRD) Af Amer 142, Est GFR (MDRD) Non-Af 118, BUN/Creatinine Ratio 28.7 H, Glucose 118 H, Calcium 8.2 L, Total Bilirubin 3.90 H, AST 30, ALT 94 H, Alkaline Phosphatase 88, Total Protein 5.1 L, Albumin 1.7 L, Globulin 3.4, Albumin/Globulin Ratio 0.5 L Physical Exam Const alert, oriented x3 and no apparent distress Eyes Eyes Narrative: Patient's eyes appear jaundice GI normal to inspection, nondistended, normoactive bowel sounds Assessment & Plan Assessment/Plan (1) Hyperbilirubinemia: PLAN: I am following this patient in conjunction with Dr. Fritz Patient's abdominal pain has seemed to resolve She has been NPO for possible liver biopsy today possibly tomorrow I spoke with Dr. Bentley and we will order the liver biopsy. He will be notified of the results We will continue to monitor this patient Patient is very adamant that she would like to be discharged today as she is tired of being in the hospital (2) Cholelithiasis: QUALIFIERS: Cholelithiasis location: gallbladder Cholecystitis presence: without cholecystitis Biliary obstruction: without biliary obstruction Qualified Code(s): K80.20 - Calculus of gallbladder without cholecystitis without obstruction Charges/Coding Visit Charges Inpatient E&M: 88377 Subs Hosp L1
[2022-09-27] MEDS: Ciprofloxacin 400 MG/200 ML BAG 200 MG IV ×2 (10:36→22:04)
[2022-09-27] MEDS: Lisinopril 10 MG Tablet PO (11:55)
[2022-09-27] MEDS: 0.9% Saline Lock 10 ML Syringe IV ×2 (11:56→16:21)
[2022-09-27 14:08] LABS: Aldolase > 56.0 U/L (3.3-10.3)
[2022-09-27] MEDS: oxyCODONE 5 MG Tablet PO (19:11)
[2022-09-27] MEDS: Venlafaxine XR 75 MG Capsule PO (22:04)
[2022-09-27] MEDS: MELATONIN 3 MG TABLET PO (22:04)
[2022-09-27] MEDS: Heparin Injection (Vial) 5,000 UNIT/ML VIAL 5000 UNIT SC (22:04)
[2022-09-27] MEDS: Venlafaxine XR 150 MG Capsule PO (22:04)
[2022-09-28] VITALS (12 sets, daily range): BP systolic 114–153; BP diastolic 56–85; PULSE 82–93; RESP 13–19; TEMP 36.3–36.9; O2SAT 91–98; BMI 34.0
[2022-09-28] MEDS: Ketorolac 15 MG/ML Vial IV (00:20)
[2022-09-28] MEDS: 0.9% Normal Saline 1,000 ML 150 ML IV ×2 (00:21→07:52)
[2022-09-28] MEDS: HYDROmorphone 0.5 MG/0.5 ML SYRINGE IV (06:06)
[2022-09-28 06:57] LABS: Absolute Lymphocyte Count 0.92 X10^3/uL (0.83-4.51); Basophil# 0.08 X10^3/uL; Basophil% 0.5 % (0-1); Eosinophil# 0.47 X10^3/uL; Eosinophils% 2.8 % (0-5); Hematocrit 29.8 % (37-47); Hemoglobin 9.7 g/dL (12.0-15.0); Lymphocyte # 0.92 X10^3/ul (0.83-4.51); Lymphocyte % 5.5 % (19-41); Mean Corp Hgb Conc 32.6 g/dL (32-36); Mean Corpuscular Hgb 29.6 pg (27.0-32.0); Mean Corpuscular Volume 90.9 fL (81-99); Mean Platelet Vol. 9.3 fl (6.2-12.0); Monocyte# 1.96 X10^3/uL; Monocyte% 11.6 % (0-10); NRBC Flagged by Analyzer 0 % (0-5); Neutrophil # 12.99 X10^3/uL (2.7-7.7); Neutrophil % 77.2 % (47-70); POSITIVE DIFFERENTIAL YES; Platelet Count 360 K/mm3 (150-450); RBC Distribution Width CV 14.3 % (11.6-14.6); RBC Distribution Width SD 47.6 fl (35.1-43.9); Red Blood Count 3.28 M/mm3 (4.2-5.4); White Blood Count 16.8 K/mm3 (4.4-11.0)
[2022-09-28 07:08] LABS: Differential Indicated SCAN CRITERIA MET
[2022-09-28 07:30] LABS: AST(SGOT) 40 U/L (15-37); Alanine Aminotransfer ALT/SGPT 78 U/L (13-56); Albumin, Serum 1.7 g/dL (3.2-5.0); Alkaline Phosphatase 94 U/L (45-117); Anion Gap 5 (5-15); BUN 11 mg/dL (7-18); BUN/Creat Ratio 26.7 RATIO (10-20); Bilirubin, Direct 2.22 mg/dL (0.00-0.30); Chloride 110 mmol/L (98-107); Creatinine, Serum 0.41 mg/dL (0.55-1.02); Differential Comment SCANNED; EST Glomerular Filtration Rate 167 mL/min (>60); Est Glom Filt Rate - Afr Amer 202 mL/min (>60); Globulin 3.4 g/dL (2.2-4.2); Glucose 124 mg/dL (74-106); Magnesium 1.8 mg/dL (1.6-2.6); Phosphorus 2.9 mg/dL (2.5-4.9); Potassium 3.5 mmol/L (3.5-5.1); Protein, Total 5.1 g/dL (6.4-8.2); Sodium Level 141 mmol/L (136-145)
--- NOTE | 2022-09-28 08:17 | PN.HOSP_ITS ---
Reason for Visit Reason for Visit: Diagnoses Calculus of gallbladder without cholecystitis without obstruction (09/22/22) Acute pancreatitis without necrosis or infection, unspecified (09/22/22) Tachycardia, unspecified (09/22/22) Hypoxemia (09/22/22) Right upper quadrant pain (09/22/22) Unspecified jaundice (09/22/22) Elevation of levels of liver transaminase levels (09/22/22) Unspecified injury of liver, initial encounter (09/22/22) Subjective Subjective Seen much more interactive compared to previous day. Liver function test continues to improve. Plan is for patient to undergo biopsy with plans for possible discharge subsequent Objective Data Objective Data Vital Signs: Vital Signs Temp Pulse Resp BP Pulse Ox O2 Del Method O2 Flow Rate 97.9 F 90 14 133/74 H 91 Room Air 2 09/28/22 08:01 09/28/22 08:01 09/28/22 08:01 09/28/22 08:01 09/28/22 08:01 09/28/22 08:01 09/28/22 07:16 Oxygen Flow Rate (L/min) 2 Oxygen Delivery Method Room Air Weight: 99.3 kg Body Mass Index (BMI) 34.0 Intake & Output: Intake and Output for Last 24 Hours 09/26/22 09/27/22 09/28/22 23:59 23:59 23:59 Intake Total 5057.5 / 5057.5 4010 / 4010 2275 / 2275 Output Total 1100 / 1100 Balance 3957.5 / 3957.5 4010 / 4010 2275 / 2275 Lab / Micro Data 09/28/22 06:20 09/28/22 06:20 Labs: Laboratory Results - last 24 hr 09/22/22 16:50: Aldolase > 56.0 H 09/28/22 06:20: WBC 16.8 H, RBC 3.28 L, Hgb 9.7 L, Hct 29.8 L, MCV 90.9, MCH 29.6, MCHC 32.6, RDW Std Deviation 47.6 H, RDW Coeff of Charan 14.3, Plt Count 360, MPV 9.3, Immature Gran % (Auto) 2.400 H, Neut % (Auto) 77.2 H, Lymph % (Auto) 5.5 L, [place] % (Auto) 11.6 H, Eos % (Auto) 2.8, Baso % (Auto) 0.5, Absolute Neuts (auto) 13.0 H, Absolute Lymphs (auto) 0.92, Nucleated RBC % 0, Differential Comment SCANNED, Diff Path Review June foll, Sodium 141, Potassium 3.5, Chloride 110 H, Carbon Dioxide 26.0, Anion Gap 5, BUN 11, Creatinine 0.41 L, Estim Creat Clear Calc 141.90, Est GFR (MDRD) Af Amer 202, Est GFR (MDRD) Non-Af 167, BUN/Creatinine Ratio 26.7 H, Glucose 124 H, Calcium 8.0 L, Phosphorus 2.9, M agnesium 1.8, Total Bilirubin 2.60 H, Direct Bilirubin 2.22 H, AST 40 H, ALT 78 H, Alkaline Phosphatase 94, Total Protein 5.1 L, Albumin 1.7 L, Globulin 3.4 Physical Exam Narrative GENERAL: cooperative HEENT: Atraumatic; normocephalic EYES; Anicteric, Normal Conjunctiva NECK; supple, normal thyroid, RESPIRATORY: Diminished to auscultation CARDIOVASCULAR: Regular S1 S2, GI: soft, normoactive bowel sounds, : No Renal angle tenderness; EXTREMITIES: edema, no clubbing, MUSCULOSKELETAL: no muscle wasting NEURO: Awake; no lateralizing signs. SKIN: No Rash PSYCH; Flat affect Assessment & Plan Assessment/Plan (1) Liver injury: QUALIFIERS: Encounter type: initial encounter Qualified Code(s): S36.119A - Unspecified injury of liver, initial encounter PLAN: Plan Patient is a 61-year-old female who presented with abdominal pain found to have elevated liver enzymes 1. Acute transaminitis ? Thought to be iatrogenic from semaglutide which has been held. Differential diagnoses include ischemic of otitis, viral appetite is as well as Gilbert's. Admitted to regular nursing floor where patient is currently being monitored. Plan was for patient to have been transferred to [facility] for biopsy patient condition however did not improve resulting in patient transfer being discontinued plan is for patient to undergo CT-guided biopsy ? 09/28/2022 liver biopsy planned for this a.m. 2. Diabetes mellitus type II -patient's oral hypoglycemics held. Placed on long acting insulin, Accu-Cheks a.c. and at bedtime and covered with sliding scale insulin 3. Hypothyroidism - Patient is on levothyroxine home dose continued 4. Hypertension - Blood pressure controlled, home medications continued with dose adjustment as needed 5. Dyslipidemia ? Status held given patient acute transaminitis 6. Depression ? Patient is on venlafaxine did continue 7. Class I obesity with BMI of 32.8 Weight loss advised 8. DVT prophylaxis ? SC heparin Time spent in the patient's overall evaluation,decision-making process, review of diagnostic data, adjustment of management, discussion with other providers, nursing nursing and ancillary staff involved in patient's care documentation, 35 Minutes
--- NOTE | 2022-09-28 09:00 | CT_ITS ---
PROCEDURE: CT DIRECTED CORE LIVER BIOPSY INDICATION: Female, 61 years old. Hyperbilirubinemia PHYSICIAN: Dr. Lewis Tinsley CONSENT: Written informed consent was obtained having explained the risks, benefits and alternatives in detail with the patient who accepted the risks and agreed to proceed. Laboratory review and clinical assessment was performed. CONSCIOUS SEDATION PROTOCOL: The Drugs used were: 1 mg Versed, IV., and 50 mcg Fentanyl, IV. The sedation time was: 17 minutes. Conscious sedation was started 9:29 AM and terminated at 9:46 AM. The conscious sedation protocol was independently monitored. RADIATION DOSAGE (If Supplied By Facility): CTDIvol = ( 23 ) mGy, DLP = ( 709.11 ) mGycm Individualized dose optimization techniques were used for this CT. TECHNIQUE: Using CT image guidance with image documentation, a suitable location in the left lobe of the liver was identified. Using an anterior approach, puncture of the liver was uneventful with an 18-gauge core needle system. 3, 18-gauge core samples were obtained, and submitted in formalin to the pathologist for further assessment. Followup CT scan revealed no distinct sequelae. CT/Biopsy/Inj or Needle Placement IMPRESSION: 1. CT directed core needle biopsy of the liver, using CT image guidance with image documentation as described. 2. Conscious Sedation protocol utilized with independent monitoring. Electronically Signed: Maxime Saucedo MD at 10:03 EDT ,
[2022-09-28] MEDS: Midazolam 2 MG/2 ML Syringe IV (09:29)
[2022-09-28] MEDS: fentaNYL 100 MCG/2 ML Ampul IV (09:30)
[2022-09-28] MEDS: Lidocaine 2% (20 ml mdv) 20 ML Vial INFILT (09:43)
--- NOTE | 2022-09-28 09:45 | LIVB_PTH ---
PATIENT: PRABHU NEVILLE LOC: MS3 U#:[id number] AGE/SX: 61/F [place] [facility] [place] [facility] [place]: Dr. Krish Weeks MD : 1960 BED: 1 DIS: 09/28/2022 SPEC #: [id number] RECD: 09/28/22 10:07 STATUS: ELENA RENitesh #: [id number] GARY: 09/28/22 09:[address]: Heriberto Moyer DEPT: SURGICAL PATHOLOGY RECD BY: Marina Connors ENTERED: 09/28/22 10:07 SP TYPE: LIVER BX OTHR DR: MD Dr. Ahsan Schrader DO Dr. Gabriele Pedicelli, MD Dr. Jeffrey Burkey, MD Dr. Prakash Chand, MD Dr. Tamera Robotham, MD Tissues: Liver, NOS Procedures: Surgery Specimen Level V Comments: @ Ordering doctor for SUV edited from to @ by SIDNEY at 09/28/22 1452 @ Submitting doctor edited from to @ by RGOOD at 09/28/22 1454 HEADER OPERATION: CT-guided liver biopsy PRE-OP DIAGNOSIS: Hyperbilirubinemia TISSUE SUBMITTED: Liver 18-gauge core x3 MICROSCOPIC DIAGNOSIS Liver, CT-guided core biopsy: Acute cholangitis. Bile stasis. Mild macrovesicular steatosis. Mildly increased intraparenchymal iron deposition (1/3). Chronic hepatitis, grade 2, stage 1. See comment. AM:kareem 09/29/2022 COMMENT Sections show portal inflammation with mild limiting plate necrosis. There is acute inflammation involving bile ducts. Inflammation also extends into the hepatic parenchyma. Iron stain reveals minimal deposition of iron within hepatocytes. Trichrome stain does not reveal cirrhosis. PAS and PASD stains do not reveal accumulation of abnormal proteins. Reticulin stain with matched control reveals a normal hepatic architecture. The inflammatory infiltrate consists of neutrophilic lymphocytes, eosinophils and rare plasma cells. Modified Knodell scoring system for chronic hepatitis was used in the evaluation of this case. The patient's history of acute pancreatitis, cholestasis and cholelithiasis are noted. Clinical correlation is suggested. All matched controls are appropriate. This case was discussed with Dr. Fritz on 10/11/[address] Sykes. Case has been reviewed in consultation with Dr. Real who concurs with the above diagnosis. IDC:HUNTER MICROSCOPIC DESCRIPTION Slides are reviewed. GROSS DESCRIPTION Received in fixative is one container labeled with the patient's name and designated liver. The specimen consists of three irregular fragments of butts soft tissue each measuring 1.5 cm in length and 0.1 cm in diameter. The specimen is totally submitted in one cassette. / SJ:rg 09/28/2022 TC:2 [facility]: [id number], [id number] x4 ADDENDUM ADDENDUM ADDENDUM ADDENDUM ADDENDUM ADDENDUM ADDENDUM ADDENDUM ADDENDUM ADDENDUM ADDENDUM ADDENDUM ADDENDUM 10/28/2022 10:16 ADDENDUM 10/28/2022 10:16 ADDENDUM 10/28/2022 10:16 ADDENDUM 10/28/2022 10:16 ADDENDUM 10/28/2022 10:16 This addendum is added to incorporate an outside pathology consultation report ordered by Dr. Fritz for second opinion. The case was examined at [facility] (#[id number]) and the following diagnosis was rendered. - Liver parenchyma with bile duct injury, bile ductular proliferation, mild nonspecific centrilobular sinusoidal congestion, and mild lobular and portal chronic inflammation. - Mild steatohepatitis. - Focal portal and periportal fibrosis. - Occasional periductal fibrosis in a large portal tract. Please see complete above mentioned consultation report in EMR
[2022-09-28] MEDS: Furosemide 100 MG/10 ML Vial 80 MG IV (10:52)
[2022-09-28] MEDS: Lisinopril 10 MG Tablet PO (10:58)
[2022-09-28] MEDS: Levothyroxine 137 MCG Tablet PO (10:58)
[2022-09-28] MEDS: Gabapentin 600 MG Tablet PO (11:01)
--- NOTE | 2022-09-28 11:12 | PCM.DC.SUM ---
Providers Date of Admission: 09/22/22 Date of Discharge: 09/28/22 Primary Care Physician: Dr. Raymond Arce MD Consultations 09/22/22 19:41 Consult: Gastroenterology Routine Consulting Provider: [facility] Reason for Consult: Acute liver injury EMERGENT Consult: No Notified: Yes Date Notified: 09/22/22 Time Notified: 17:31 Method of Notification: ED Physician Initiated 09/24/22 09:14 Consult: General Surgery Routine Consulting Provider: Marcela Fritz Reason for Consult: pancreatitis EMERGENT Consult: No Notified: Yes Date Notified: 09/24/22 Time Notified: 09:14 Method of Notification: Text 09/27/22 10:12 Consult: Interventional Radiology Routine Consulting Provider: Maxime Saucedo Reason for Consult: Liver biopsy for hyperbilirubinemia EMERGENT Consult: No Notified: Yes Date Notified: 09/27/22 Time Notified: 10:12 Method of Notification: Verbal Reason For Visit: ACUTE LIVER INJURY, DILI Diagnosis Discharge Diagnosis (1) Transaminitis: Status: Acute Code(s): R74.01 - Elevation of levels of liver transaminase levels Plan Patient is a 61-year-old female who presented with abdominal pain found to have elevated liver enzymes 1. Acute transaminitis ? Thought to be iatrogenic from semaglutide which has been held. Differential diagnoses include ischemic of otitis, viral appetite is as well as Gilbert's. Admitted to regular nursing floor where patient is currently being monitored. Plan was for patient to have been transferred to [facility] for biopsy patient condition however did not improve resulting in patient transfer being discontinued plan is for patient to undergo CT-guided biopsy ? 09/28/2022 liver biopsy planned for this a.m. 2. Diabetes mellitus type II -patient's oral hypoglycemics held. Placed on long acting insulin, Accu-Cheks a.c. and at bedtime and covered with sliding scale insulin 3. Hypothyroidism - Patient is on levothyroxine home dose continued 4. Hypertension - Blood pressure controlled, home medications continued with dose adjustment as needed 5. Dyslipidemia ? Status held given patient acute transaminitis 6. Depression ? Patient is on venlafaxine did continue 7. Class I obesity with BMI of 32.8 Weight loss advised 8. DVT prophylaxis ? SC heparin Time spent in the patient's overall evaluation,decision-making process, review of diagnostic data, adjustment of management, discussion with other providers, nursing nursing and ancillary staff involved in patient's care documentation, 35 Minutes Medications at Discharge Home Medications enalapril maleate 20 mg tablet (Vasotec) 20 mg PO BID BP 01/24/15 venlafaxine 150 mg capsule,extended release 24 hr 150 mg PO DAILY 01/24/15 amitriptyline 75 mg tablet 75 mg PO QHS sleep 03/01/22 gabapentin 600 mg tablet 600 mg PO Q8H 03/01/22 levothyroxine 137 mcg tablet (Synthroid) 137 mcg PO DAILY THYROID 09/22/22 oxycodone 10 mg tablet,crush resistant,extended release 12 hr (OxyContin) 10 mg PO BID 5 days #10 tabs 09/28/22 oxycodone 5 mg tablet 5 mg PO Q4H PRN PRN Pain Score 6-10 5 days #20 tabs 09/28/22 polyethylene glycol 3350 17 gram oral powder packet 17 g PO DAILY #30 ea 09/28/22 Hospital Course Summary of Care Provided Minutes Spent on Discharge: 35 Physical Exam Narrative GENERAL: cooperative HEENT: Atraumatic; normocephalic EYES; Anicteric, Normal Conjunctiva NECK; supple, normal thyroid, RESPIRATORY: Diminished to auscultation CARDIOVASCULAR: Regular S1 S2, GI: soft, normoactive bowel sounds, : No Renal angle tenderness; EXTREMITIES: edema, no clubbing, MUSCULOSKELETAL: no muscle wasting NEURO: Awake; no lateralizing signs. SKIN: No Rash PSYCH; Flat affect Weight / BMI Weight Weight: 99.3 kg Body Mass Index (BMI) 34.0 ABG / Lab / Microbiology Data 09/28/22 06:20 09/28/22 06:20 Laboratory: Laboratory Results - last 24 hr 09/22/22 16:50: Aldolase > 56.0 H 09/28/22 06:20: WBC 16.8 H, RBC 3.28 L, Hgb 9.7 L, Hct 29.8 L, MCV 90.9, MCH 29.6, MCHC 32.6, RDW Std Deviation 47.6 H, RDW Coeff of Charan 14.3, Plt Count 360, MPV 9.3, Immature Gran % (Auto) 2.400 H, Neut % (Auto) 77.2 H, Lymph % (Auto) 5.5 L, [place] % (Auto) 11.6 H, Eos % (Auto) 2.8, Baso % (Auto) 0.5, Absolute Neuts (auto) 13.0 H, Absolute Lymphs (auto) 0.92, Nucleated RBC % 0, Differential Comment SCANNED, Diff Path Review June foll, Sodium 141, Potassium 3.5, Chloride 110 H, Carbon Dioxide 26.0, Anion Gap 5, BUN 11, Creatinine 0.41 L, Estim Creat Clear Calc 141.90, Est GFR (MDRD) Af Amer 202, Est GFR (MDRD) Non-Af 167, BUN/Creatinine Ratio 26.7 H, Glucose 124 H, Calcium 8.0 L, Phosphorus 2.9, Magnesium 1.8, Total Bilirubin 2.60 H, Direct Bilirubin 2.22 H, AST 40 H, ALT 78 H, Alkaline Phosphatase 94, Total Protein 5.1 L, Albumin 1.7 L, Globulin 3.4 Radiography Diagnostic Testing: Radiology Impression Biopsy CT 09/28/22 09:00 IMPRESSION: 1. CT directed core needle biopsy of the liver, using CT image guidance with image documentation as described. 2. Conscious Sedation protocol utilized with independent monitoring. Electronically Signed: Maxime Saucedo MD at 10:03 EDT , D/C Instructions Discharge Diet: No restrictions Discharge Activity: Return to Normal Activity Call your doctor if you observe: Fever of 101 or Higher, Shortness of breath, Fainting spells and Chest pain Meaningful Use Info Meaningful Use Diagnoses (Choose all that apply): None applicable Discharge Plan Admission Admit Date/Time: 09/22/22 17:29 Attending Provider: Krish Weeks Primary Care Provider: Raymond Arce Consulting Providers: Heriberto Moyer; Marcela Fritz; Ahsan Santos; Maxime Saucedo Instructions Patient Instructions: RAD RN Biopsy Liver Dc, RAD RN Procedural Sedation Discharge Orders/Prescriptions Prescriptions: New polyethylene glycol 3350 17 gram Powder In Packet 17 g PO DAILY Qty: 30 0RF oxycodone [OxyContin] 10 mg Tablet,Oral Only,Ext.Rel.12 Hr 10 mg PO BID 5 Days Qty: 10 0RF oxycodone 5 mg Tablet 5 mg PO Q4H PRN PRN (Reason: Pain Score 6-10) 5 Days Qty: 20 0RF Continued gabapentin 600 mg tablet 600 mg PO Q8H amitriptyline 75 mg tablet 75 mg PO QHS enalapril maleate [Vasotec] 20 MG tablet 20 mg PO BID venlafaxine 150 MG capsule 150 mg PO DAILY levothyroxine [Synthroid] 137 mcg tablet 137 mcg PO DAILY Discontinued pravastatin 80 mg tablet 80 mg PO DAILY meloxicam 15 mg tablet 15 mg PO DAILY glucosamine-chondroitin 900 MG tablet 1 tab PO DAILY Ozempic 2 mg/dose (8 mg/3 mL) pen injector 2 mg SUBCUT SA Referrals / Follow Up: Raymond Arce MD [Primary Care Provider] - Within 1 Week Faheem Bentley DO [Med Staff - Active Staff] - Within 1 Week Disposition Disposition (needs filled in before D/C Order can be placed): Home, Self Care Charges/Coding Visit Charges Inpatient E&M: 32305 Disch Hosp >30min
[2022-09-28] MEDS: Ciprofloxacin 400 MG/200 ML BAG 200 MG IV (11:24)
[2022-09-28] MEDS: oxyCODONE 5 MG Tablet PO (11:24)
--- NOTE | 2022-09-28 11:46 | PHA.DC_ITS ---
Pharmacy [facility] Pharm[facility] Service has performed discharge medication reconciliation and counseling for this patient. 1. OXYCODONE 5MG PO Q4H PRN PAIN 6-10 2. OXYCODONE ER 10MG PO BID 3. MIRALAX 17GM PO DAILY The patient's discharge medication list was reviewed for discrepancies and discrepancies were resolved. The patient was counseled on the following discharge medications and changes in medications for homegoing were reviewed. The Reason for Use, instructions for use, and potential side effects were reviewed for all new medications. The patient's questions regarding all of their medications were answered. The patient was able to verbally demonstrate an understanding of their discharge medications. Patient counseled by pharmacy technician program directorKellee. Medications at Discharge Home Medications enalapril maleate 20 mg tablet (Vasotec) 20 mg PO BID BP 01/24/15 venlafaxine 150 mg capsule,extended release 24 hr 150 mg PO DAILY 01/24/15 amitriptyline 75 mg tablet 75 mg PO QHS sleep 03/01/22 gabapentin 600 mg tablet 600 mg PO Q8H 03/01/22 levothyroxine 137 mcg tablet (Synthroid) 137 mcg PO DAILY THYROID 09/22/22 oxycodone 10 mg tablet,crush resistant,extended release 12 hr (OxyContin) 10 mg PO BID 5 days #10 tabs 09/28/22 oxycodone 5 mg tablet 5 mg PO Q4H PRN PRN Pain Score 6-10 5 days #20 tabs 09/28/22 polyethylene glycol 3350 17 gram oral powder packet 17 g PO DAILY #30 ea 09/28/22
[2022-09-30 10:27] LABS: Pathologist Review Reviewed
== END 2022-09-28 13:51 | disposition home or self-care (01) | DRG 441 ==
LOC: ED 17:04 → MS3 09-23 01:08
PROVIDERS: Family Medicine; Internal Medicine Gastroenterology; Admitting Provider Internal Medicine; Emergency Provider Emergency Medicine; PCP Family Medicine; Visit Provider Internal Medicine
DX: K71.10 Toxic liver disease with hepatic necrosis, without coma (principal); K85.90 Acute pancreatitis without necrosis or infection, unspecified; K83.09 Other cholangitis; K80.21 Calculus of gallbladder without cholecystitis with obstruction; E11.42 Type 2 diabetes mellitus with diabetic polyneuropathy; I10 Essential (primary) hypertension; E89.0 Postprocedural hypothyroidism; F32.A Depression, unspecified; E80.4 Gilbert syndrome; M16.12 Unilateral primary osteoarthritis, left hip; E78.5 Hyperlipidemia, unspecified; M54.9 Dorsalgia, unspecified; E66.9 Obesity, unspecified; T38.3X5A Adverse effect of insulin and oral hypoglycemic [antidiabetic] drugs, initial encounter; R09.02 Hypoxemia; Z68.32 Body mass index [BMI] 32.0-32.9, adult; Z51.5 Encounter for palliative care; Z66 Do not resuscitate; Z79.890 Hormone replacement therapy; Z79.899 Other long term (current) drug therapy; Z86.718 Personal history of other venous thrombosis and embolism
CPT/HCPCS: 36415; 71045; 74175; 74181; 76705; 77012; 78226; 80048; 80053; 80074; 80076; 81001; 82085; 82140; 82150; 82247; 82248; 82550; 82784; 82785; 82962; 83516; 83615; 83690; 83735; 84100; 84484; 85025; 85610; 85652; 86140; 86225; 86235; 86256; 86645; 86664; 86665; 88307; 93005; 94668; 94762; 96361; 96374; 96375; 99156; 99283; 99285; A9537; J7030; J7050; J7120; Q9967; A4216; J0744; J1940; J2405

== ENCOUNTER 2022-10-16 02:41 | Inpatient (IN) | payer OTHER, SELFPAY ==
[2022-10-16] VITALS (11 sets, daily range): BP systolic 126–158; BP diastolic 68–88; PULSE 67–92; RESP 16–18; TEMP 36.2–37; O2SAT 93–98; BMI 28.2; BMI 29.2
--- NOTE | 2022-10-16 02:55 | EDS_ITS ---
HPI History of Present Illness Chief Complaint: Abd Pain Narrative Narrative: Patient was recently admitted and found to have nonalcoholic steatohepatitis, she was found to have gallstones. She had a recent MRCP. She was seen by GI further and outpatient, she now has pain that is the same as her prior admission. No fevers or chills. Most the pain is epigastric and right upper quadrant. PFSH PFS Medical History (Updated 10/16/22 @ 04:[address] Colton Lutz MD) Acute liver failure Anxiety Cancer Depression Diabetes mellitus DVT (deep venous thrombosis) History of blood clots Hx of thyroid cancer Hypertension Hypothyroidism Post-menopausal Syncope TIA (transient ischemic attack) Home Medications enalapril maleate 20 mg tablet (Vasotec) 20 mg PO BID BP 01/24/15 [History Last Taken 01/31/15 05:00] venlafaxine 150 mg capsule,extended release 24 hr 150 mg PO DAILY 01/24/15 [History Last Taken Unknown] amitriptyline 75 mg tablet 75 mg PO QHS sleep 03/01/22 [History Last Taken Unknown] gabapentin 600 mg tablet 600 mg PO Q8H 03/01/22 [History Last Taken Unknown] levothyroxine 137 mcg tablet (Synthroid) 137 mcg PO DAILY THYROID 09/22/22 [History Last Taken Unknown] pantoprazole 40 mg tablet,delayed release (Protonix) 40 mg PO BID #60 tabs 09/28/22 [Rx Last Taken Unknown] ursodiol 300 mg capsule 300 mg PO BID #60 caps 10/13/22 [Rx Last Taken Unknown] meloxicam 15 mg tablet 15 mg PO DAILY 10/16/22 [History Last Taken Unknown] Allergy/AdvReac Type Severity Reaction Status Date / Time amoxicillin Allergy Intermediate RASH Verified 10/16/22 02:59 Penicillins [PCN] Allergy Anaphylaxis Verified 09/22/22 08:22 vancomycin Allergy Anaphylaxis Verified 09/22/22 08:22 Surgical History History of carpal tunnel release of both wrists Hx of oophorectomy Hx of thyroidectomy Social History Smoking Status: Never smoker alcohol intake: never ROS ROS ED ROS Narrative Past medical history: Reviewed Medications: Reviewed Social history: Noncontributory Review of systems: All systems negative except as indicated General: No fever Eyes: No visual changes ENT: No upper airway congestion, normal voice Neck: No neck pain Cardiovascular: No chest pain Respiratory: No shortness of breath or cough Gastrointestinal: As in HPI Genitourinary: No dysuria Musculoskeletal: Denies myalgias no difficulty with ambulation Skin: No rash Neurological: No memory loss, confusion or any focal weakness Psych: No recent behavioral changes Hematologic: No easy bleeding or easy bruising EXAM Physical Exam Narrative Exam Narrative: Physical exam General: Well nourished, Well developed, No Acute Distress Head: Normocephalic, Atraumatic Eyes: Conjunctiva not pale ENT: Moist mucous membranes Neck: Supple, Nontender, No lymphadenopathy Cardiovascular: Regular rate, Regular rhythm Respiratory: No distress, CTA bilaterally Abdomen: Soft, mostly epigastric pain some right upper quadrant pain but negative Bliss's. Back: Nontender, Normal Inspection. Negative for: CVA tenderness Extremities: Nontender, No edema Skin: Normal color, No rash Neurological: Alert, Normal Strength, Normal Sensation Const Vital Signs: 10/16/22 02:42 10/16/22 03:00 10/16/22 03:09 Temperature 97.7 F L Temperature Source Oral Pulse Rate 92 85 88 Respiratory Rate 16 16 16 Blood Pressure 158/88 H 158/88 H 133/79 H Blood Pressure Mean 111 111 97 Pulse Ox 98 93 93 Oxygen Delivery Method Room Air Room Air Room Air MDM MDM MDM Narrative Medical decision making narrative: I reviewed prior inpatient and GI outpatient notes. The plan was to not do gallbladder surgery, however the patient's pain is quite intense she still has quite a bit of pain despite multiple doses of opiate analgesics. I will admit her, she can get an inpatient surgical and GI consult again. At this time I do not believe a CT is needed, I do not have ultrasound at this hour and can be done in the morning. Lab Data Labs: Laboratory Results - last 24 hr 10/16/22 03:00 WBC 8.7 RBC 4.18 L Hgb 12.5 Hct 39.4 MCV 94.3 MCH 29.9 MCHC 31.7 L RDW Std Deviation 49.3 H RDW Coeff of Charan 14.2 Plt Count 406 MPV 9.4 Immature Gran % (Auto) 0.500 Neut % (Auto) 71.9 H Lymph % (Auto) 16.1 L [place] % (Auto) 7.0 Eos % (Auto) 3.2 Baso % (Auto) 1.3 H Absolute Neuts (auto) 6.2 Absolute Lymphs (auto) 1.39 Nucleated RBC % 0 Sodium 141 Potassium 4.0 Chloride 104 Carbon Dioxide 30.0 Anion Gap 7 BUN 19 H Creatinine 0.83 Estim Creat Clear Calc 70.09 Est GFR (MDRD) Af Amer 90 Est GFR (MDRD) Non-Af 75 BUN/Creatinine Ratio 23.0 H Glucose 221 H Calcium 9.0 Total Bilirubin 0.80 Direct Bilirubin 0.68 H AST 490 H ALT 201 H Alkaline Phosphatase 108 Total Protein 6.9 Albumin 3.4 Globulin 3.5 Lipase 110 H Discharge Plan Triage Chief Complaint: Abd Pain ED Provider: Colton Lutz Dx/Rx/DC Orders Clinical Impression: Disease of gallbladder, YOUSSEF (nonalcoholic steatohepatitis), Intractable abdominal pain Prescriptions: No Action gabapentin 600 mg tablet 600 mg PO Q8H amitriptyline 75 mg tablet 75 mg PO QHS ursodiol 300 mg capsule 300 mg PO BID Qty: 60 11RF enalapril maleate [Vasotec] 20 MG tablet 20 mg PO BID venlafaxine 150 MG capsule 150 mg PO DAILY levothyroxine [Synthroid] 137 mcg tablet 137 mcg PO DAILY pantoprazole [Protonix] 40 mg tablet,delayed release (DR/EC) 40 mg PO BID Qty: 60 0RF meloxicam 15 mg tablet 15 mg PO DAILY Primary Care Provider: Raymond Arce Referrals: Raymond Arce MD [Primary Care Provider] - Disposition Disposition: Acute Care Hospital [facility]
[2022-10-16] MEDS: Morphine 4 MG/ML Syringe IV (03:06)
[2022-10-16] MEDS: Ondansetron 4 MG/2 ML Vial IV (03:06)
[2022-10-16] MEDS: 0.9% Normal Saline 1,000 ML 1000 ML IV (03:06)
[2022-10-16 03:10] LABS: Absolute Lymphocyte Count 1.39 X10^3/uL (0.83-4.51); Absolute Neutrophil Count 6.2 X10^3/uL (2.0-7.7); Basophil# 0.11 X10^3/uL; Basophil% 1.3 % (0-1); Eosinophil# 0.28 X10^3/uL; Eosinophils% 3.2 % (0-5); Hematocrit 39.4 % (37-47); Hemoglobin 12.5 g/dL (12.0-15.0); Lymphocyte # 1.39 X10^3/ul (0.83-4.51); Lymphocyte % 16.1 % (19-41); Mean Corp Hgb Conc 31.7 g/dL (32-36); Mean Corpuscular Hgb 29.9 pg (27.0-32.0); Mean Corpuscular Volume 94.3 fL (81-99); Mean Platelet Vol. 9.4 fl (6.2-12.0); Monocyte# 0.61 X10^3/uL; NRBC Flagged by Analyzer 0 % (0-5); Neutrophil # 6.23 X10^3/uL (2.7-7.7); Neutrophil % 71.9 % (47-70); Platelet Count 406 K/mm3 (150-450); RBC Distribution Width CV 14.2 % (11.6-14.6); RBC Distribution Width SD 49.3 fl (35.1-43.9); Red Blood Count 4.18 M/mm3 (4.2-5.4); White Blood Count 8.7 K/mm3 (4.4-11.0)
[2022-10-16 03:28] LABS: AST(SGOT) 490 U/L (15-37); Alanine Aminotransfer ALT/SGPT 201 U/L (13-56); Albumin, Serum 3.4 g/dL (3.2-5.0); Alkaline Phosphatase 108 U/L (45-117); Anion Gap 7 (5-15); BUN 19 mg/dL (7-18); Bilirubin, Direct 0.68 mg/dL (0.00-0.30); Chloride 104 mmol/L (98-107); Creatinine, Serum 0.83 mg/dL (0.55-1.02); EST Glomerular Filtration Rate 75 mL/min (>60); Est Glom Filt Rate - Afr Amer 90 mL/min (>60); Estimated Creatinine Clearance 70.09 ml/min; Globulin 3.5 g/dL (2.2-4.2); Glucose 221 mg/dL (74-106); Lipase 110 U/L (13-75); Protein, Total 6.9 g/dL (6.4-8.2); Sodium Level 141 mmol/L (136-145)
[2022-10-16] MEDS: HYDROmorphone 1 MG/ML Syringe IV (04:10)
--- NOTE | 2022-10-16 05:20 | PCM.HP.STD ---
HPI - General General Date of Admission: 10/16/22 Date of Service: 10/16/22 Chief Complaint: Intractable abdominal pain HPI Narrative PRABHU NEVILLE, is a 61 F who presented urgency department at [facility] on 10/16/2022 complaining of epigastric abdominal pain that radiates across her upper abdomen and to her back. She had a recent admission here when she had pancreatitis and transaminitis. She ended up having a liver biopsy that showed acute cholangitis, bile stasis, mild macrovesicular still ptosis and mildly increased intraparenchymal iron deposition with chronic hepatitis grade 2 stage [address] Dr[address] Bentley on Tuesday and was feeling well. He thought that his other symptoms were related to microlithiasis in the setting of acute pancreatitis. She stated last night she ate spaghetti for dinner and was feeling fine. She watched her grandchildren and at 130 this morning she woke up with an intense epigastric pain as noted above. She has had associated nausea with no vomiting. She denies any fever or chills. Patient is still having fairly intense epigastric pain despite pain medication being administered by the emergency department physician. Her did state that Dr. Bentley thought the antibiotics were most beneficial for her at her last hospitalization and wondered if we would be initiating these. Given the lack of fever or white count elevation I think we will hold off for now and get the CAT scan and make further decisions from there. He voiced understanding. Vital signs on presentation demonstrated temperature of 97.7, heart rate 92, blood pressure 158/88, respiratory 16 and oxygen saturations are 98% on room air. CBC is overall unremarkable. She has no white count and only very minimal left shift with a 71.9% neutrophilia this is down from previous. Her chemistry panel is overall unremarkable. Glucose is 221. Total bilirubin is 0.8 with a direct bilirubin of 0.68 both of which have trended down since her last lab drawn here, however, her AST and ALT have trended back up with an AST of 490 and ALT of 201. Her alk phos is normal at 108. Lipase was obtained and only found to be 110. No imaging was obtained and I have ordered a CAT scan with p.o. and IV contrast to be performed is currently pending. The emergency department she was given IV fluids and antiemetics as well as pain medication and request for admission was made. [facility] Medical History Acute liver failure Anxiety Cancer Depression Diabetes mellitus DVT (deep venous thrombosis) History of blood clots Hx of thyroid cancer Hypertension Hypothyroidism Post-menopausal Syncope TIA (transient ischemic attack) Home Medications enalapril maleate 20 mg tablet (Vasotec) 20 mg PO BID BP 01/24/15 [History Last Taken 01/31/15 05:00] venlafaxine 150 mg capsule,extended release 24 hr 150 mg PO DAILY 01/24/15 [History Last Taken Unknown] amitriptyline 75 mg tablet 75 mg PO QHS sleep 03/01/22 [History Last Taken Unknown] gabapentin 600 mg tablet 600 mg PO Q8H 03/01/22 [History Last Taken Unknown] levothyroxine 137 mcg tablet (Synthroid) 137 mcg PO DAILY THYROID 09/22/22 [History Last Taken Unknown] pantoprazole 40 mg tablet,delayed release (Protonix) 40 mg PO BID #60 tabs 09/28/22 [Rx Last Taken Unknown] ursodiol 300 mg capsule 300 mg PO BID #60 caps 10/13/22 [Rx Last Taken Unknown] meloxicam 15 mg tablet 15 mg PO DAILY 10/16/22 [History Last Taken Unknown] Allergy/AdvReac Type Severity Reaction Status Date / Time amoxicillin Allergy Intermediate RASH Verified 10/16/22 02:59 Penicillins [PCN] Allergy Anaphylaxis Verified 09/22/22 08:22 vancomycin Allergy Anaphylaxis Verified 09/22/22 08:22 Family History (Updated 10/16/22 @ 05:[address] Ignacia Adkins DO) Other Diabetes Hypertension Surgical History History of carpal tunnel release of both wrists Hx of oophorectomy Hx of thyroidectomy Social History (Updated 10/16/22 @ 05:[address] Ignacia Adkins DO) household members: spouse housing: house Smoking Status: Never smoker alcohol intake: never substance use type: does not use ROS Constitutional Constitutional: Denies anorexia, change in weight, chills, fatigue, fever(s), malaise, night sweats, weakness or other Eyes Eyes: Denies blurry vision, change in eye color, change in vision, discharge from eye(s), double vision, erythema, eye pain, loss of vision or other ENT HEENT: Denies abnormal hearing, dysphagia, ear pain, epistaxis, headache(s), hearing loss, nasal congestion, nasal discharge, post nasal drip, sinus pressure, sore throat or other Cardiovascular Cardiovascular: Denies chest pain, claudication, dyspnea on exertion, edema, lightheadedness, orthopnea, palpitations, paroxysmal nocturnal dyspnea, rapid heart rate, syncope or other Respiratory/Chest Respiratory/Chest: Denies cough, dyspnea, excessive phlegm production, hemoptysis, productive cough, shortness of breath at rest, shortness of breath with exertion, wheezing or other Gastrointestinal Gastrointestinal: Reports abdominal pain, loose stools and nausea; Denies coffee ground emesis, constipation, diarrhea, dyspepsia, hematemesis, hematochezia, melena, vomiting or other Genitourinary Genitourinary: Denies burning urination, difficulty urinating, dysuria, hematuria, nocturia, urinary frequency, urinary hesitancy, urinary incontinence, urinary urgency or other Musculoskeletal Musculoskeletal: Reports back pain; Denies arthralgias, joint pain, joint stiffness, joint swelling, myalgias, neck pain or other Neurologic Neurologic: Denies abnormal gait, abnormal speech, confusion, disequilibrium, dizziness, focal weakness, headache(s), numbness, paresthesias, seizure-like activity, seizures, syncope, tingling, tremor(s) or other Psychiatric Psychiatric: Reports depression; Denies anxiety, homicidal ideation, suicidal ideation or other Endocrine Endocrinology: Denies change in body appearance, cold intolerance, excessive sweating, heat intolerance, polydipsia, polyuria or other Hematologic/Lymphatic Hematologic/Lymphatic: Denies anemia, easy bleeding, easy bruising, lymphadenopathy or other Allergic/Immunologic Allergic/Immunologic: Denies rhinitis, hives, eczemia, asthma or other Vital Signs Vital Signs Vital Signs: 10/16/22 02:42 10/16/22 03:00 10/16/22 03:09 Temperature 97.7 F L Temperature Source Oral Pulse Rate 92 85 88 Respiratory Rate 16 16 16 Blood Pressure 158/88 H 158/88 H 133/79 H Blood Pressure Mean 111 111 97 Pulse Ox 98 93 93 Oxygen Delivery Method Room Air Room Air Room Air 10/16/22 04:57 Temperature 97.9 F Temperature Source Temporal Pulse Rate 81 Respiratory Rate 18 Blood Pressure 126/79 H Blood Pressure Mean 94 Pulse Ox 93 Oxygen Delivery Method Room Air Weight Weight: 81.8 kg Body Mass Index (BMI) 28.2 Physical Exam Const alert, oriented x3 and well nourished; Negative for no apparent distress, average body habitus or healthy appearing Constitutional Narrative: Middle-aged, white female, sitting up in bed, appears uncomfortable but nontoxic, family at bedside General Appearance: cooperative HEENT normocephalic, head/scalp atraumatic, hearing grossly normal bilaterally and moist oral mucous membranes HEENT Narrative: Dentition is fair, Mallampati is 3, no thrush Eyes PERRL, EOMs intact bilaterally and conjunctivae normal Eyes Narrative: No scleral icterus Neck no lymphadenopathy and supple Neck Narrative: Trachea midline, no thyroid enlargement Resp normal respiratory effort, no retractions, no use of accessory muscles and clear to auscultation bilaterally Auscultation: Negative for rales, rhonchi or wheezes Cardio regular rate, regular rhythm, S1 normal heart sound, S2 normal heart sound, no murmurs, no rub, no gallops and no clicks GI GI Narrative: Tenderness with guarding in the epigastrium and bilateral upper quadrants, bowel sounds are slightly hypoactive, abdomen is soft and nonrigid with no distention Extremity no clubbing, cyanosis or edema Extremity Narrative: Pulses are 2+ Neuro oriented x3, CN's II-XII intact bilaterally, moves all extremities and no focal motor deficits Speech: speech normal Psych Psych Narrative: Affect is flat and mood seems depressed which is appropriate for how she is feeling clinically at this time Results Lab / Micro Data Attestation: I reviewed the patient's lab results. 10/16/22 03:00 10/16/22 03:00 Labs: Laboratory Results - last 24 hr 10/16/22 03:00: WBC 8.7, RBC 4.18 L, Hgb 12.5, Hct 39.4, MCV 94.3, MCH 29.9, MCHC 31.7 L, RDW Std Deviation 49.3 H, RDW Coeff of Charan 14.2, Plt Count 406, MPV 9.4, Immature Gran % (Auto) 0.500, Neut % (Auto) 71.9 H, Lymph % (Auto) 16.1 L, Dickenson % (Auto) 7.0, Eos % (Auto) 3.2, Baso % (Auto) 1.3 H, Absolute Neuts (auto) 6.2, Absolute Lymphs (auto) 1.39, Nucleated RBC % 0, Sodium 141, Potassium 4.0, Chloride 104, Carbon Dioxide 30.0, Anion Gap 7, BUN 19 H, Creatinine 0.83, Estim Creat Clear Calc 70.09, Est GFR (MDRD) Af Amer 90, Est GFR (MDRD) Non-Af 75, BUN/Creatinine Ratio 23.0 H, Glucose 221 H, Calcium 9.0, Total Bilirubin 0.80, Direct Bilirubin 0.68 H, AST 490 H, ALT 201 H, Alkaline Phosphatase 108, Total Protein 6.9, Albumin 3.4, Globulin 3.5, Lipase 110 H Assessment & Plan Assessment/Plan (1) Intractable abdominal pain: (2) Disease of gallbladder: (3) Transaminitis: PLAN: Plan Intractable abdominal pain -Etiology is unclear -Patient recently admitted with pancreatitis and had liver biopsy -Currently no signs of acute pancreatitis as were present at her last visit -Had ultrasound/MRCP/CT of the abdomen/HIDA scan/an liver biopsy done her last admission -Repeat CT of the abdomen pelvis with contrast today -Hold home meloxicam since we are giving her contrast -IV fluids with LR at 75 cc/h -As needed pain medication IV -As needed antiemetics -N.p.o. okay for p.o. meds -We will consult GI and general surgery who evaluated her earlier this month for similar presentation Transaminitis -Bilirubin has almost normalized however AST and ALT are trending back up -Continue home ursodiol -Consult GI and await further input Cholelithiasis -Unclear if this is currently contributing to her issues at all -We will consult general surgery Hypertension -Continue home enalapril Hypothyroidism -Continue home levothyroxine GERD -Continue pantoprazole YOUSSEF liver disease -Continue home ursodiol -Liver biopsy done at last visit -GI consultation pending DM-2 -Does not appear that she is currently on anything -Check hemoglobin A1c -Oral hypoglycemics discontinued at her last hospitalization and they were concerned that they cause her pancreatitis and liver issues -SSI every 6 while NPO -Accu-Cheks as ordered Hyperlipidemia -Patient is not currently on any therapy as medications were held at her last admission due to transaminitis -We will continue to hold currently Depression -Continue venlafaxine DVT prophylaxis -Lovenox subcu daily CODE STATUS -DNR CCA with no intubation Charges/Coding Visit Charges Inpatient E&M: 89460 Init Hosp L2
--- NOTE | 2022-10-16 05:24 | CT_ITS ---
STUDY: CT ABDOMEN AND PELVIS WITH CONTRAST - URINARY TRACT REASON FOR EXAM: Female, 61 years old. Abdominal pain. Nonalcoholic steatohepatitis RADIATION DOSAGE (If Supplied By Facility): CTDIvol = ( 13.58 ) mGy, DLP = ( 1115.13 ) mGycm TECHNIQUE: Oral and amp; IV Gastrografin and amp; 100mL Isovue-370 was administered. Transaxial images were obtained from the dome of the diaphragm to the symphysis pubis in the arterial, nephrographic and excretory phases. Multiplanar coronal and sagittal images were reformatted. Individualized Dose Optimization Techniques Were Used For This CT. COMPARISON: Prior studies dated: CT and MRI dated September 24, 2022 FINDINGS: There is minimal dependent consolidation within the lower lobes.. The visualized portions of the heart are within normal limits. There is periportal edema. There is hepatomegaly. There are two too small to characterize low-attenuation foci within the left hepatic lobe. There is trace pericholecystic fluid, less pronounced than the prior examination. Normal spleen. There is mild peripancreatic fluid, less pronounced than the prior examination. There is a stable 1.9 cm low-attenuation left adrenal nodule. Normal visualized stomach. Normal small intestine. Normal colon. The appendix is visualized and appears normal. Normal abdominal aorta. No retroperitoneal adenopathy. Normal right kidney. Normal left kidney. Normal urinary bladder. Normal abdominal wall. There are degenerative changes of the visualized thoracic and lumbar spine. CT/Abdomen/Pelvis WITH Contrast IMPRESSION: Partial resolution of pancreatitis. Hepatomegaly. Trace pericholecystic fluid, less pronounced than the prior examinations. 1.9 cm left adrenal nodule, consider hormonal workup and/or endocrinology consult. Electronically Signed: Renee Lr MD at 9:58 EDT ,
[2022-10-16] MEDS: HYDROmorphone 0.5 MG/0.5 ML SYRINGE IV (06:13)
[2022-10-16] MEDS: Lactated Ringers 1,000 ML 75 ML IV (06:13)
[2022-10-16] MEDS: Insulin Lispro 100 UNIT/ML INSULN.PEN SC (06:16)
[2022-10-16 06:37] LABS: Bedside Glucose 309 mg/dL (74-106)
--- NOTE | 2022-10-16 08:16 | PN.HOSP_ITS ---
Reason for Visit Reason for Visit: Diagnoses Disease of gallbladder, unspecified (10/16/22) Unspecified abdominal pain (10/16/22) Elevation of levels of liver transaminase levels (10/16/22) Subjective Subjective Patient is a 61-year-old female who presented with abdominal pain. Patient was on admission 2 weeks prior underwent liver biopsy which demonstrated acute cholangitis, bile stasis, mild macrovesicular steatosis and chronic hepatitis gr kelvin 2 presented back to the emergency department with abdominal pain found to have elevated enzymes Objective Data Objective Data Vital Signs: Vital Signs Temp Pulse Resp BP Pulse Ox O2 Del Method 98.0 F 77 18 134/71 H 95 Room Air 10/16/22 05:59 10/16/22 05:59 10/16/22 05:59 10/16/22 05:59 10/16/22 05:59 10/16/22 05:59 Oxygen Delivery Method Room Air Weight: 84.6 kg Body Mass Index (BMI) 29.2 Intake & Output: Intake and Output for Last 24 Hours 10/14/22 10/15/22 10/16/22 23:59 23:59 23:59 Intake Total 1000 / 1000 Balance 1000 / 1000 Lab / Micro Data 10/16/22 08:20 10/16/22 08:20 Labs: Laboratory Results - last 24 hr 10/16/22 03:00: WBC 8.7, RBC 4.18 L, Hgb 12.5, Hct 39.4, MCV 94.3, MCH 29.9, MCHC 31.7 L, RDW Std Deviation 49.3 H, RDW Coeff of Charan 14.2, Plt Count 406, MPV 9.4, Immature Gran % (Auto) 0.500, Neut % (Auto) 71.9 H, Lymph % (Auto) 16.1 L, [place] % (Auto) 7.0, Eos % (Auto) 3.2, Baso % (Auto) 1.3 H, Absolute Neuts (auto) 6.2, Absolute Lymphs (auto) 1.39, Nucleated RBC % 0, Sodium 141, Potassium 4.0, Chloride 104, Carbon Dioxide 30.0, Anion Gap 7, BUN 19 H, Creatinine 0.83, Estim Creat Clear Calc 70.09, Est GFR (MDRD) Af Amer 90, Est GFR (MDRD) Non-Af 75, BUN/Creatinine Ratio 23.0 H, Glucose 221 H, Calcium 9.0, Total Bilirubin 0.80, Direct Bilirubin 0.68 H, AST 490 H, ALT 201 H, Alkaline Phosphatase 108, Total Protein 6.9, Albumin 3.4, Globulin 3.5, Lipase 110 H 10/16/22 06:15: POC Glucose 309 H Physical Exam Narrative GENERAL: cooperative HEENT: Atraumatic; normocephalic EYES; Anicteric, Normal Conjunctiva NECK; supple, normal thyroid, RESPIRATORY: Diminished to auscultation CARDIOVASCULAR: Regular S1 S2, GI: soft, normoactive bowel sounds, : No Renal angle tenderness; EXTREMITIES: No edema, no clubbing, MUSCULOSKELETAL: no muscle wasting NEURO: Awake; no lateralizing signs. SKIN: No Rash PSYCH; Flat affect Assessment & Plan Assessment/Plan (1) Intractable abdominal pain: (2) Disease of gallbladder: (3) Transaminitis: PLAN: Plan Patient is a 61-year-old female who presented with abdominal pain. Patient was on admission 2 weeks prior underwent liver biopsy which demonstrated acute cholangitis, bile stasis, mild macrovesicular steatosis and chronic hepatitis grade 2 presented back to the emergency department with abdominal pain found to have elevated enzymes 1. Abdominal pain with acute transaminitis ? patient was on admission 2 weeks prior to her readmission. Underwent liver biopsy on 09/28/2022 which demonstrated acute cholangitis, bile stasis, mild macrovesicular steatosis and chronic hepatitis grade 2 presented back to the emergency department with abdominal pain found to have elevated enzymes. Admitted to regular nursing floor consult placed to GI as well as general surgery 2. Diabetes mellitus type II -patient's oral hypoglycemics held. Placed on long acting insulin, Accu-Cheks a.c. and at bedtime and covered with sliding scale insulin 3. Hypothyroidism - Patient is on levothyroxine home dose continued 4. Hypertension - Blood pressure controlled, home medications continued with dose adjustment as needed 5. Dyslipidemia ? Status held given patient acute transaminitis 6. Depression ? Patient is on venlafaxine did continue 7. DVT prophylaxis ? SC Lovenox Time spent in the patient's overall evaluation,decision-making process, review of diagnostic data, adjustment of management, discussion with other providers, nursing nursing and ancillary staff involved in patient's care documentation, 50-minute Charges/Coding Visit Charges Inpatient E&M: 88170 Subs Hosp L3
[2022-10-16] MEDS: Lisinopril 20 MG Tablet PO ×2 (09:12→21:42)
[2022-10-16] MEDS: Venlafaxine XR 150 MG Capsule PO (09:12)
[2022-10-16] MEDS: Ursodiol 250 MG Tablet PO ×2 (09:12→21:42)
[2022-10-16] MEDS: Pantoprazole Sodium 40 MG Tablet PO ×2 (09:13→21:41)
[2022-10-16] MEDS: levoFLOXacin IV 750 MG/150 ML BAG 100 MG IV (09:14)
[2022-10-16] MEDS: metroNIDAZOLE 500 MG/100 ML BAG 100 MG IV ×3 (09:14→21:59)
[2022-10-16] MEDS: Levothyroxine 137 MCG Tablet PO (09:18)
[2022-10-16 09:20] LABS: Absolute Lymphocyte Count 0.67 X10^3/uL (0.83-4.51); Basophil# 0.06 X10^3/uL; Basophil% 0.8 % (0-1); Eosinophil# 0.02 X10^3/uL; Eosinophils% 0.3 % (0-5); Hematocrit 39.6 % (37-47); Lymphocyte # 0.67 X10^3/ul (0.83-4.51); Lymphocyte % 9.2 % (19-41); Mean Corp Hgb Conc 30.3 g/dL (32-36); Mean Corpuscular Hgb 29.3 pg (27.0-32.0); Mean Corpuscular Volume 96.8 fL (81-99); Mean Platelet Vol. 9.7 fl (6.2-12.0); Monocyte# 0.47 X10^3/uL; Monocyte% 6.5 % (0-10); NRBC Flagged by Analyzer 0 % (0-5); Neutrophil # 6.03 X10^3/uL (2.7-7.7); Neutrophil % 82.8 % (47-70); Platelet Count 415 K/mm3 (150-450); RBC Distribution Width CV 14.3 % (11.6-14.6); RBC Distribution Width SD 50.7 fl (35.1-43.9); Red Blood Count 4.09 M/mm3 (4.2-5.4); White Blood Count 7.3 K/mm3 (4.4-11.0)
[2022-10-16 09:39] LABS: Hemoglobin A1c 6.2 % (3.8-5.6)
[2022-10-16 09:59] LABS: AST(SGOT) 1078 U/L (15-37); Alanine Aminotransfer ALT/SGPT 555 U/L (13-56); Albumin, Serum 3.4 g/dL (3.2-5.0); Alkaline Phosphatase 128 U/L (45-117); Anion Gap 6 (5-15); BUN 16 mg/dL (7-18); BUN/Creat Ratio 21.3 RATIO (10-20); Calcium,Total 8.6 mg/dL (8.5-10.1); Chloride 101 mmol/L (98-107); Creatinine, Serum 0.75 mg/dL (0.55-1.02); EST Glomerular Filtration Rate 83 mL/min (>60); Est Glom Filt Rate - Afr Amer 101 mL/min (>60); Estimated Creatinine Clearance 74.67 ml/min; Globulin 3.5 g/dL (2.2-4.2); Glucose 258 mg/dL (74-106); Magnesium 2.2 mg/dL (1.6-2.6); Phosphorus 3.8 mg/dL (2.5-4.9); Potassium 5.1 mmol/L (3.5-5.1); Protein, Total 6.9 g/dL (6.4-8.2); Sodium Level 138 mmol/L (136-145)
--- NOTE | 2022-10-16 10:21 | MRI_ITS ---
STUDY: MR CHOLANGIOPANCREATOGRAPHY (MRCP) REASON FOR EXAM: Female, 61 years old. increased lft''s TECHNIQUE: Standard MRCP technique was utilized. 3-D reconstructions were performed. COMPARISON: 09/23/2022 FINDINGS: Gall Bladder: Multiple small hypointense filling defects consistent with stones consistent with cholelithiasis. Pericholecystic fluid in the setting of ascites. Cystic duct: Normal with no demonstrated fixed filling defect. Intrahepatic ducts: Normal visualized intrahepatic ducts with no demonstrated fixed filling defect, dilation or stricture. Common hepatic duct: Normal with no demonstrated fixed filling defect, dilation or stricture. Common bile duct: Normal with no demonstrated fixed filling defect, dilation or stricture. Pancreatic duct: Normal with no demonstrated fixed filling defect, dilation or stricture. MRI/MRCP Abdomen without Contrast IMPRESSION: Cholelithiasis. Electronically Signed: Cyril Resendez MD at 21:07 EDT ,
--- NOTE | 2022-10-16 10:24 | US_ITS ---
INDICATION: increased lft''s EXAMINATION: Ultrasound US Abdomen Complete TECHNIQUE: Wren-scale and color Doppler imaging was performed of the abdomen. COMPARISON: FINDINGS: LIVER: There is fatty echotexture measuring 18 cm. No focal hepatic lesion. No intrahepatic biliary ductal dilatation. There is no free fluid. GALLBLADDER AND BILIARY TREE: Cholelithiasis with sludge. Mild pericholecystic fluid and gallbladder wall thickening. The proximal common bile duct measures 4.3 mm, which is within normal limits for the patient''s age. SONOGRAPHIC SINGH''S SIGN: Negative. PANCREAS: Limited visualization of the pancreas. SPLEEN: The spleen is normal in size measuring 10.3 cm and homogeneous in echotexture. RIGHT KIDNEY: 12.1 x 5.6 x 4.7 cm. The cortex is a 20 mm. There is no hydronephrosis. No shadowing calculus, focal lesion, or perinephric collection is demonstrated. LEFT KIDNEY: 12.1 x 5.7 x 6.1 cm. The cortex is 24 mm. There is no hydronephrosis. No shadowing calculus, focal lesion, or perinephric collection is demonstrated. VESSELS: Submitted longitudinal images of the intra-abdominal aorta demonstrate no gross abnormalities and are unremarkable. The IVC is patent. US/Abdomen Complete IMPRESSION: Cholelithiasis with sludge. Mild pericholecystic fluid and gallbladder wall thickening. Enlarged fatty liver. Electronically Signed: Donald Lane DO at 20:38 EDT ,
--- NOTE | 2022-10-16 10:26 | CON.PCM.GI_ITS ---
HPI Consult Data Date of Consult: 10/17/22 HPI Narrative Reason for Consultation: Abnormal LFTs HPI Narrative: PRABHU NEVILLE, is a 61 F who presents from home with worsening abdominal pain. The pain woke her up out of her sleep at 1:30 in the morning. It was similar pain that she had previously when she was recently here in the hospital. She had a recent admission here when she had pancreatitis and transaminitis. She ended up having a liver biopsy that showed acute cholangitis, bile stasis, mild macrovesicular still ptosis and mildly increased intraparenchymal iron deposition with chronic hepatitis grade 2 stage I. She saw me in clinic on Tuesday and was feeling well. I thought that his other symptoms were related to microlithiasis in the setting of acute pancreatitis. She stated last night she ate spaghetti for dinner and was feeling fine. She watched her grandchildren and at 130 this morning she woke up with an intense epigastric pain as noted above. She has had associated nausea with no vomiting. She denies any fever or chills. Patient is still having fairly intense epigastric pain despite pain medication being administered by the emergency department physician. Vital signs on presentation demonstrated temperature of 97.7, heart rate 92, blood pressure 158/88, respiratory 16 and oxygen saturations are 98% on room air. CBC is overall unremarkable. She has no white count and only very minimal left shift with a 71.9% neutrophilia this is down from previous. Her chemistry panel is overall unremarkable. Glucose is 221. Total bilirubin is 0.8 with a direct bilirubin of 0.68 both of which have trended down since her last lab drawn here, however, her AST and ALT have trended back up with an AST of 490 and ALT of 201. Her alk phos is normal at 108. Lipase was obtained and only found to be 110. No imaging was obtained and I have ordered a CAT scan with p.o. and IV contrast - Partial resolution of pancreatitis. Hepatomegaly. Trace pericholecystic fluid, less pronounced than the prior examinations. The emergency department she was given IV fluids and antiemetics as well as pain medication and request for admission was made. [facility] Medical History Acute liver failure Anxiety Cancer Depression Diabetes mellitus DVT (deep venous thrombosis) History of blood clots Hx of thyroid cancer Hypertension Hypothyroidism Post-menopausal Syncope TIA (transient ischemic attack) Home Medications enalapril maleate 20 mg tablet (Vasotec) 20 mg PO BID BP 01/24/15 [History Last Taken 01/31/15 05:00] venlafaxine 150 mg capsule,extended release 24 hr 150 mg PO DAILY 01/24/15 [History Last Taken Unknown] amitriptyline 75 mg tablet 75 mg PO QHS sleep 03/01/22 [History Last Taken Unknown] gabapentin 600 mg tablet 600 mg PO Q8H 03/01/22 [History Last Taken Unknown] levothyroxine 137 mcg tablet (Synthroid) 137 mcg PO DAILY THYROID 09/22/22 [History Last Taken Unknown] pantoprazole 40 mg tablet,delayed release (Protonix) 40 mg PO BID #60 tabs 09/28/22 [Rx Last Taken Unknown] ursodiol 300 mg capsule 300 mg PO BID #60 caps 10/13/22 [Rx Last Taken Unknown] meloxicam 15 mg tablet 15 mg PO DAILY 10/16/22 [History Last Taken Unknown] Allergy/AdvReac Type Severity Reaction Status Date / Time amoxicillin Allergy Intermediate RASH Verified 10/16/22 02:59 Penicillins [PCN] Allergy Anaphylaxis Verified 09/22/22 08:22 vancomycin Allergy Anaphylaxis Verified 09/22/22 08:22 Family History (Updated 10/16/22 @ 05:[address] Ignacia Adkins DO) Other Diabetes Hypertension Surgical History History of carpal tunnel release of both wrists Hx of oophorectomy Hx of thyroidectomy Social History (Updated 10/16/22 @ 05:[address] Ignacia Adkins DO) household members: spouse housing: house Smoking Status: Never smoker alcohol intake: never substance use type: does not use ROS Constitutional Constitutional: Denies anorexia, change in weight, chills, fatigue, fever(s), malaise, night sweats, weakness or other Eyes Eyes: Denies blurry vision, change in eye color, change in vision, discharge from eye(s), double vision, erythema, eye pain, loss of vision or other ENT HEENT: Denies abnormal hearing, dysphagia, ear pain, epistaxis, headache(s), hearing loss, nasal congestion, nasal discharge, post nasal drip, sinus pressure, sore throat or other Cardiovascular Cardiovascular: Denies chest pain, claudication, dyspnea on exertion, edema, lightheadedness, orthopnea, palpitations, paroxysmal nocturnal dyspnea, rapid heart rate, syncope or other Respiratory/Chest Respiratory/Chest: Denies cough, dyspnea, excessive phlegm production, hemoptysis, productive cough, shortness of breath at rest, shortness of breath with exertion, wheezing or other Gastrointestinal Gastrointestinal: Reports abdominal pain, loose stools and nausea; Denies coffee ground emesis, constipation, diarrhea, dyspepsia, hematemesis, hematochezia, melena, vomiting or other Genitourinary Genitourinary: Denies burning urination, difficulty urinating, dysuria, hematuria, nocturia, urinary frequency, urinary hesitancy, urinary incontinence, urinary urgency or other Musculoskeletal Musculoskeletal: Reports back pain; Denies arthralgias, joint pain, joint stiffness, joint swelling, myalgias, neck pain or other Neurologic Neurologic: Denies abnormal gait, abnormal speech, confusion, disequilibrium, dizziness, focal weakness, headache(s), numbness, paresthesias, seizure-like activity, seizures, syncope, tingling, tremor(s) or other Psychiatric Psychiatric: Reports depression; Denies anxiety, homicidal ideation, suicidal ideation or other Endocrine Endocrinology: Denies change in body appearance, cold intolerance, excessive sweating, heat intolerance, polydipsia, polyuria or other Hematologic/Lymphatic Hematologic/Lymphatic: Denies anemia, easy bleeding, easy bruising, lymphadenopathy or other Allergic/Immunologic Allergic/Immunologic: Denies rhinitis, hives, eczemia, asthma or other Physical Exam Narrative GENERAL: cooperative HEENT: Atraumatic; normocephalic EYES; Anicteric, Normal Conjunctiva NECK; supple, normal thyroid, RESPIRATORY: Diminished to auscultation CARDIOVASCULAR: Regular S1 S2, GI: soft, normoactive bowel sounds, : No Renal angle tenderness; EXTREMITIES: No edema, no clubbing, MUSCULOSKELETAL: no muscle wasting NEURO: Awake; no lateralizing signs. SKIN: No Rash PSYCH; Flat affect Lab / Micro Data 10/17/22 05:34 10/17/22 05:34 Labs: Laboratory Results - last 24 hr 10/16/22 03:00: WBC 8.7, RBC 4.18 L, Hgb 12.5, Hct 39.4, MCV 94.3, MCH 29.9, MCHC 31.7 L, RDW Std Deviation 49.3 H, RDW Coeff of Charan 14.2, Plt Count 406, MPV 9.4, Immature Gran % (Auto) 0.500, Neut % (Auto) 71.9 H, Lymph % (Auto) 16.1 L, [place] % (Auto) 7.0, Eos % (Auto) 3.2, Baso % (Auto) 1.3 H, Absolute Neuts (auto) 6.2, Absolute Lymphs (auto) 1.39, Nucleated RBC % 0, Sodium 141, Potassium 4.0, Chloride 104, Carbon Dioxide 30.0, Anion Gap 7, BUN 19 H, Creatinine 0.83, Estim Creat Clear Calc 70.09, Est GFR (MDRD) Af Amer 90, Est GFR (MDRD) Non-Af 75, BUN/Creatinine Ratio 23.0 H, Glucose 221 H, Calcium 9.0, Total Bilirubin 0.80, Direct Bilirubin 0.68 H, AST 490 H, ALT 201 H, Alkaline Phosphatase 108, Total Protein 6.9, Albumin 3.4, Globulin 3.5, Lipase 110 H 10/16/22 06:15: POC Glucose 309 H 10/16/22 08:20: WBC 7.3, RBC 4.09 L, Hgb 12.0, Hct 39.6, MCV 96.8, MCH 29.3, MCHC 30.3 L, RDW Std Deviation 50.7 H, RDW Coeff of Charan 14.3, Plt Count 415, MPV 9.7, Immature Gran % (Auto) 0.400, Neut % (Auto) 82.8 H, Lymph % (Auto) 9.2 L, [place] % (Auto) 6.5, Eos % (Auto) 0.3, Baso % (Auto) 0.8, Absolute Neuts (auto) 6.0, Absolute Lymphs (auto) 0.67 L, Nucleated RBC % 0, Sodium 138, Potassium 5.1, Chloride 101, Carbon Dioxide 31.0, Anion Gap 6, BUN 16, Creatinine 0.75, Estim Creat Clear Calc 74.67, Est GFR (MDRD) Af Amer 101, Est GFR (MDRD) Non-Af 83, BUN/Creatinine Ratio 21.3 H, Glucose 258 H, Hemoglobin A1c 6.2 H, Calcium 8.6, Phosphorus 3.8, Magnesium 2.2, Total Bilirubin 1.30 H, AST 1078 H, ALT 555 H, Alkaline Phosphatase 128 H, Total Protein 6.9, Albumin 3.4, Globulin 3.5, Albumin/Globulin Ratio 1.0 Radiology Impression Abdomen/Pelvis CT 10/16/22 05:24 IMPRESSION: Partial resolution of pancreatitis. Hepatomegaly. Trace pericholecystic fluid, less pronounced than the prior examinations. 1.9 cm left adrenal nodule, consider hormonal workup and/or endocrinology consult. Electronically Signed: Renee Lr MD at 9:58 EDT , Assessment & Plan Assessment/Plan (1) Intractable abdominal pain: (2) Disease of gallbladder: (3) Transaminitis: PLAN: Plan Intractable abdominal pain -Etiology is unclear -Patient recently admitted with pancreatitis and had liver biopsy -Currently no signs of acute pancreatitis as were present at her last visit -Had ultrasound/MRCP/CT of the abdomen/HIDA scan/an liver biopsy done her last admission -Repeat CT of the abdomen pelvis with contrast today does not display any sign of obstruction at this time. -I will repeat her MRCP and ultrasound -Recommend surgical evaluation -IV fluids with LR at 75 cc/h -As needed pain medication IV -As needed antiemetics Transaminitis -Bilirubin has almost normalized however AST and ALT are trending back up -Continue home ursodiol -Differential diagnosis does include antibody negative autoimmune hepatitis, overlap syndrome with PSC and antibody negative PBC, acute intermittent porphyria, choledocholithiasis, small duct PSC. -Start Zosyn 3.375 mg IV every 6 hours Cholelithiasis -Unclear if this is currently contributing to her issues at all - Awaiting general surgery opinion Hypertension -Continue home enalapril Hypothyroidism -Continue home levothyroxine GERD -Continue pantoprazole YOUSSEF liver disease -Continue home ursodiol -Liver biopsy done at last visit Charges/Coding Visit Charges Inpatient E&M: 84608 Init Hosp L3
--- NOTE | 2022-10-16 10:46 | EX.PCM.CON.S ---
Assessment & Plan Assessment/Plan (1) Cholelithiasis: QUALIFIERS: Biliary obstruction: without biliary obstruction Cholecystitis presence: without cholecystitis Cholelithiasis location: gallbladder Qualified Code(s): K80.20 - Calculus of gallbladder without cholecystitis without obstruction (2) Right upper quadrant abdominal pain: (3) Transaminitis: PLAN: Plan Patient does have gallstones however patient's AST has already jumped to 1000s which is not typical of gallbladder disease. Patient has an MRCP completed but read is pending. On my read patient's bile ducts are still extremely small no concerns for choledocholithiasis and also patient has fluid around her liver as well as her gallbladder and thus the pericholecystic fluid may be due to the perihepatic fluid and underlying liver issue. Discussed with the family and her I do not think that taking her gallbladder will resolve the symptoms as the etiology does not fit along with the labs. Patient's pain started at 1:30 in the morning last ate at 7 PM at night pain was right upper quadrant radiating to her back. Patient previously had a liver biopsy which called cholangitis however MRCP last admission also did not show any obstruction of the common bile duct question for small duct disease causing the issue. We will continue to follow patient and labs. Marcela Fritz M.D. Pager: [phone] [facility] [address] [place] [address], [address] [place] [address] Office: [phone] HPI Consult Data Date of Consult: 10/16/22 HPI Narrative HPI Narrative: PRABHU NEVILLE, is a 61 F who presents to the ER due to right upper quadrant pain radiating to her back at 1:30 AM. Patient last ate about 6 PM. Patient does have known gallstones and was previously hospitalized due to right upper quadrant/epigastric pain and elevated LFTs. At that time AST and ALT were about at thousand those did trend down, then bilirubin went up and trended down, patient also had pancreatitis at that time. Patient had an MRCP at that time not showing dilatation of CBD or choledocholithiasis. Patient also had liver biopsy which called acute cholangitis, mild macrovascular steatosis, chronic hepatitis, grade 2, stage I, intraparenchymal iron deposits 1/3. Patient is also being seen by GI. Patient currently states her pain is improved however patient has been getting IV Dilaudid for pain as well. Patient did go for an MRCP read pending. [facility] Medical History Acute liver failure Anxiety Cancer Depression Diabetes mellitus DVT (deep venous thrombosis) History of blood clots Hx of thyroid cancer Hypertension Hypothyroidism Post-menopausal Syncope TIA (transient ischemic attack) Home Medications enalapril maleate 20 mg tablet (Vasotec) 20 mg PO BID BP 01/24/15 [History Last Taken 01/31/15 05:00] venlafaxine 150 mg capsule,extended release 24 hr 150 mg PO DAILY 01/24/15 [History Last Taken Unknown] amitriptyline 75 mg tablet 75 mg PO QHS sleep 03/01/22 [History Last Taken Unknown] gabapentin 600 mg tablet 600 mg PO Q8H 03/01/22 [History Last Taken Unknown] levothyroxine 137 mcg tablet (Synthroid) 137 mcg PO DAILY THYROID 09/22/22 [History Last Taken Unknown] pantoprazole 40 mg tablet,delayed release (Protonix) 40 mg PO BID #60 tabs 09/28/22 [Rx Last Taken Unknown] ursodiol 300 mg capsule 300 mg PO BID #60 caps 10/13/22 [Rx Last Taken Unknown] meloxicam 15 mg tablet 15 mg PO DAILY 10/16/22 [History Last Taken Unknown] Allergy/AdvReac Type Severity Reaction Status Date / Time amoxicillin Allergy Intermediate RASH Verified 10/16/22 02:59 Penicillins [PCN] Allergy Anaphylaxis Verified 09/22/22 08:22 vancomycin Allergy Anaphylaxis Verified 09/22/22 08:22 Family History (Updated 10/16/22 @ 05:[address] Ignacia Adkins DO) Other Diabetes Hypertension Surgical History History of carpal tunnel release of both wrists Hx of oophorectomy Hx of thyroidectomy Social History (Updated 10/16/22 @ 05:[address] Ignacia Adkins DO) household members: spouse housing: house Smoking Status: Never smoker alcohol intake: never substance use type: does not use Physical Exam Const alert, oriented x3 and no apparent distress HEENT normocephalic and head/scalp atraumatic Resp normal respiratory effort Cardio regular rate GI soft to palpation; Negative for non-distended Palpation: tender epigastric, RUQ and other (No guarding or rebound); Negative for guarding Extremity no clubbing, cyanosis or edema Neuro CN's II-XII intact bilaterally Psych mental status grossly normal Lab / Micro Data 10/16/22 08:20 10/16/22 08:20 Labs: Laboratory Results - last 24 hr 10/16/22 03:00: WBC 8.7, RBC 4.18 L, Hgb 12.5, Hct 39.4, MCV 94.3, MCH 29.9, MCHC 31.7 L, RDW Std Deviation 49.3 H, RDW Coeff of Charan 14.2, Plt Count 406, MPV 9.4, Immature Gran % (Auto) 0.500, Neut % (Auto) 71.9 H, Lymph % (Auto) 16.1 L, [place] % (Auto) 7.0, Eos % (Auto) 3.2, Baso % (Auto) 1.3 H, Absolute Neuts (auto) 6.2, Absolute Lymphs (auto) 1.39, Nucleated RBC % 0, Sodium 141, Potassium 4.0, Chloride 104, Carbon Dioxide 30.0, Anion Gap 7, BUN 19 H, Creatinine 0.83, Estim Creat Clear Calc 70.09, Est GFR (MDRD) Af Amer 90, Est GFR (MDRD) Non-Af 75, BUN/Creatinine Ratio 23.0 H, Glucose 221 H, Calcium 9.0, Total Bilirubin 0.80, Direct Bilirubin 0.68 H, AST 490 H, ALT 201 H, Alkaline Phosphatase 108, Total Protein 6.9, Albumin 3.4, Globulin 3.5, Lipase 110 H 10/16/22 06:15: POC Glucose 309 H 10/16/22 08:20: WBC 7.3, RBC 4.09 L, Hgb 12.0, Hct 39.6, MCV 96.8, MCH 29.3, MCHC 30.3 L, RDW Std Deviation 50.7 H, RDW Coeff of Charan 14.3, Plt Count 415, MPV 9.7, Immature Gran % (Auto) 0.400, Neut % (Auto) 82.8 H, Lymph % (Auto) 9.2 L, [place] % (Auto) 6.5, Eos % (Auto) 0.3, Baso % (Auto) 0.8, Absolute Neuts (auto) 6.0, Absolute Lymphs (auto) 0.67 L, Nucleated RBC % 0, Sodium 138, Potassium 5.1, Chloride 101, Carbon Dioxide 31.0, Anion Gap 6, BUN 16, Creatinine 0.75, Estim Creat Clear Calc 74.67, Est GFR (MDRD) Af Amer 101, Est GFR (MDRD) Non-Af 83, BUN/Creatinine Ratio 21.3 H, Glucose 258 H, Hemoglobin A1c 6.2 H, Calcium 8.6, Phosphorus 3.8, Magnesium 2.2, Total Bilirubin 1.30 H, AST 1078 H, ALT 555 H, Alkaline Phosphatase 128 H, Total Protein 6.9, Albumin 3.4, Globulin 3.5, Albumin/Globulin Ratio 1.0 Radiology Impression Abdomen/Pelvis CT 10/16/22 05:24 IMPRESSION: Partial resolution of pancreatitis. Hepatomegaly. Trace pericholecystic fluid, less pronounced than the prior examinations. 1.9 cm left adrenal nodule, consider hormonal workup and/or endocrinology consult. Electronically Signed: Renee Lr MD at 9:58 EDT ,
[2022-10-16] MEDS: Enoxaparin 40 MG/0.4 ML Syringe SC (12:25)
[2022-10-16 12:46] LABS: Bedside Glucose 146 mg/dL (74-106)
[2022-10-16] MEDS: Gabapentin 600 MG Tablet PO ×2 (15:14→21:40)
--- NOTE | 2022-10-16 15:43 | CASEMGMT ---
ROLANDO SOTELO Readmission Review: Index: 09/22 thru 09/28/22 DX: Transaminitis Readmit: 10/16/22 Dx: intractable abd pain, transaminitis, cholelithiasis Pt with comorbidities including anxiety/depression, DM, DVT, HTN, Hypothyroid, TIA admitted on the above dates for the noted corresponding dx. Pt was noted on indes to be independent and without needs at discharge and was discharged to home with the support of her family. This RN CM to pt's bedside and met with pt face to face. Introduced self and ROLANDO SOTELO role at [facility]. Pt expressed understanding and agreeable to visit with family at bedside. Pt states she had been doing well at home and denies any difficulty navigating her home or providing self care. Pt states she obtained her medications at discharge and self paid for her pain medications due to prior authorization not being obtained. Pt states she has followed up with her PCP and with Dr. Bentley since discharge. Pt states she is unsure what caused her pain to increase and contributed to her return to [facility]. Pt is hopeful the testing taken on this date will show the cause of her pain. Pt denies any discharge needs at this time. Will continue to follow and assist with any DC needs as identified. Yasmin Morales RN CM
[2022-10-16 16:57] LABS: Bedside Glucose 69 mg/dL (74-106)
[2022-10-16] MEDS: 0.9% Saline Lock 10 ML Syringe IV (18:47)
[2022-10-16] MEDS: Amitriptyline 25 MG Tablet 75 MG PO (21:40)
[2022-10-17] MEDS: Venlafaxine XR 75 MG Capsule PO (01:33)
[2022-10-17 02:30] LABS: Bedside Glucose 130 mg/dL (74-106)
[2022-10-17 04:08] VITALS: BP 128/82; PULSE 75; RESP 16; TEMP 36.6; O2SAT 94
--- NOTE | 2022-10-17 04:43 | CPS ---
Patient asleep at this time
[2022-10-17] MEDS: Gabapentin 600 MG Tablet PO (06:35)
[2022-10-17] MEDS: Levothyroxine 137 MCG Tablet PO (06:36)
[2022-10-17] MEDS: metroNIDAZOLE 500 MG/100 ML BAG 100 MG IV (06:52)
[2022-10-17 06:53] LABS: Absolute Lymphocyte Count 0.96 X10^3/uL (0.83-4.51); Absolute Neutrophil Count 5.9 X10^3/uL (2.0-7.7); Basophil# 0.08 X10^3/uL; Eosinophil# 0.31 X10^3/uL; Hematocrit 37.2 % (37-47); Hemoglobin 11.5 g/dL (12.0-15.0); Lymphocyte # 0.96 X10^3/ul (0.83-4.51); Lymphocyte % 12.3 % (19-41); Mean Corp Hgb Conc 30.9 g/dL (32-36); Mean Corpuscular Hgb 29.6 pg (27.0-32.0); Mean Corpuscular Volume 95.9 fL (81-99); Monocyte# 0.56 X10^3/uL; Monocyte% 7.2 % (0-10); NRBC Flagged by Analyzer 0 % (0-5); Neutrophil % 75.2 % (47-70); Platelet Count 358 K/mm3 (150-450); RBC Distribution Width CV 14.3 % (11.6-14.6); RBC Distribution Width SD 50.2 fl (35.1-43.9); Red Blood Count 3.88 M/mm3 (4.2-5.4); White Blood Count 7.8 K/mm3 (4.4-11.0)
[2022-10-17] MEDS: Insulin Lispro 100 UNIT/ML INSULN.PEN SC (06:55)
[2022-10-17 07:22] LABS: AST(SGOT) 313 U/L (15-37); Alanine Aminotransfer ALT/SGPT 422 U/L (13-56); Albumin, Serum 2.9 g/dL (3.2-5.0); Alkaline Phosphatase 132 U/L (45-117); Anion Gap 2 (5-15); BUN 9 mg/dL (7-18); BUN/Creat Ratio 15.8 RATIO (10-20); Bilirubin, Direct 0.41 mg/dL (0.00-0.30); Calcium,Total 8.5 mg/dL (8.5-10.1); Chloride 108 mmol/L (98-107); Creatinine, Serum 0.57 mg/dL (0.55-1.02); EST Glomerular Filtration Rate 115 mL/min (>60); Est Glom Filt Rate - Afr Amer 139 mL/min (>60); Estimated Creatinine Clearance 98.26 ml/min; Globulin 3.5 g/dL (2.2-4.2); Glucose 173 mg/dL (74-106); Potassium 3.8 mmol/L (3.5-5.1); Protein, Total 6.4 g/dL (6.4-8.2); Sodium Level 139 mmol/L (136-145)
[2022-10-17 07:30] LABS: Bedside Glucose 169 mg/dL (74-106)
--- NOTE | 2022-10-17 07:39 | PN.HOSP_ITS ---
Reason for Visit Reason for Visit: Diagnoses Calculus of gallbladder without cholecystitis without obstruction (10/16/22) Disease of gallbladder, unspecified (10/16/22) Right upper quadrant pain (10/16/22) Unspecified abdominal pain (10/16/22) Elevation of levels of liver transaminase levels (10/16/22) Subjective Subjective Was started on meropenem for suspected cholangitis on 10/16/2022 Objective Data Objective Data Vital Signs: Vital Signs Temp Pulse Resp BP Pulse Ox O2 Del Method O2 Flow Rate 98 F 75 16 128/82 H 94 Room Air 2 10/17/22 04:08 10/17/22 04:08 10/17/22 04:08 10/17/22 04:08 10/17/22 04:08 10/17/22 04:08 10/16/22 09:54 Oxygen Flow Rate (L/min) 2 Oxygen Delivery Method Room Air Weight: 84.6 kg Body Mass Index (BMI) 29.2 Intake & Output: Intake and Output for Last 24 Hours 10/15/22 10/16/22 10/17/22 23:59 23:59 23:59 Intake Total 2255.55 / 2255.55 120 / 120 Balance 2255.55 / 2255.55 120 / 120 Lab / Micro Data 10/17/22 05:34 10/17/22 05:34 Labs: Laboratory Results - last 24 hr 10/16/22 08:20: WBC 7.3, RBC 4.09 L, Hgb 12.0, Hct 39.6, MCV 96.8, MCH 29.3, MCHC 30.3 L, RDW Std Deviation 50.7 H, RDW Coeff of Charan 14.3, Plt Count 415, MPV 9.7, Immature Gran % (Auto) 0.400, Neut % (Auto) 82.8 H, Lymph % (Auto) 9.2 L, [place] % (Auto) 6.5, Eos % (Auto) 0.3, Baso % (Auto) 0.8, Absolute Neuts (auto) 6. 0, Absolute Lymphs (auto) 0.67 L, Nucleated RBC % 0, Sodium 138, Potassium 5.1, Chloride 101, Carbon Dioxide 31.0, Anion Gap 6, BUN 16, Creatinine 0.75, Estim Creat Clear Calc 74.67, Est GFR (MDRD) Af Amer 101, Est GFR (MDRD) Non-Af 83, BUN/Creatinine Ratio 21.3 H, Glucose 258 H, Hemoglobin A1c 6.2 H, Calcium 8.6, Phosphorus 3.8, Magnesium 2.2, Total Bilirubin 1.30 H, AST 1078 H, ALT 555 H, Alkaline Phosphatase 128 H, Total Protein 6.9, Albumin 3.4, Globulin 3.5, Albumin/Globulin Ratio 1.0 10/16/22 12:24: POC Glucose 146 H 10/16/22 16:36: POC Glucose 69 L 10/17/22 01:37: POC Glucose 130 H 10/17/22 05:34: WBC 7.8, RBC 3.88 L, Hgb 11.5 L, Hct 37.2, MCV 95.9, MCH 29.6, MCHC 30.9 L, RDW Std Deviation 50.2 H, RDW Coeff of Charan 14.3, Plt Count 358, MPV 10.0, Immature Gran % (Auto) 0.300, Neut % (Auto) 75.2 H, Lymph % (Auto) 12.3 L, [place] % (Auto) 7.2, Eos % (Auto) 4.0, Baso % (Auto) 1.0, Absolute Neuts (auto) 5. 9, Absolute Lymphs (auto) 0.96, Nucleated RBC % 0, Sodium 139, Potassium 3.8, Chloride 108 H, Carbon Dioxide 29.0, Anion Gap 2 L, BUN 9, Creatinine 0.57, Estim Creat Clear Calc 98.26, Est GFR (MDRD) Af Amer 139, Est GFR (MDRD) Non-Af 115, BUN/Creatinine Ratio 15.8, Glucose 173 H, Calcium 8.5, Total Bilirubin 0.90, Direct Bilirubin 0.41 H, AST 313 H, ALT 422 H, Alkaline Phosphatase 132 H, Total Protein 6.4, Albumin 2.9 L, Globulin 3.5 10/17/22 06:55: POC Glucose 169 H Radiography Diagnostic Testing: Radiology Impression Abdomen/Pelvis CT 10/16/22 05:24 IMPRESSION: Partial resolution of pancreatitis. Hepatomegaly. Trace pericholecystic fluid, less pronounced than the prior examinations. 1.9 cm left adrenal nodule, consider hormonal workup and/or endocrinology consult. Electronically Signed: Renee Lr MD at 9:58 EDT , MRCP 10/16/22 10:21 IMPRESSION: Cholelithiasis. Electronically Signed: Cyirl Resendez MD at 21:07 EDT , Abdomen Ultrasound 10/16/22 10:24 IMPRESSION: Cholelithiasis with sludge. Mild pericholecystic fluid and gallbladder wall thickening. Enlarged fatty liver. Electronically Signed: Donald Lane DO at 20:38 EDT , Physical Exam Narrative GENERAL: cooperative HEENT: Atraumatic; normocephalic EYES; Anicteric, Normal Conjunctiva NECK; supple, normal thyroid, RESPIRATORY: Diminished to auscultation CARDIOVASCULAR: Regular S1 S2, GI: soft, normoactive bowel sounds, : No Renal angle tenderness; EXTREMITIES: No edema, no clubbing, MUSCULOSKELETAL: no muscle wasting NEURO: Awake; no lateralizing signs. SKIN: No Rash PSYCH; Flat affect Assessment & Plan Assessment/Plan (1) Intractable abdominal pain: (2) Disease of gallbladder: (3) Transaminitis: PLAN: Plan Patient is a 61-year-old female who presented with abdominal pain. Patient was on admission 2 weeks prior underwent liver biopsy which demonstrated acute cholangitis, bile stasis, mild macrovesicular steatosis and chronic hepatitis grade 2 presented back to the emergency department with abdominal pain found to have elevated enzymes 1. Abdominal pain with acute transaminitis ? patient was on admission 2 weeks prior to her readmission. Underwent liver biopsy on 09/28/2022 which demonstrated acute cholangitis, bile stasis, mild macrovesicular steatosis and chronic hepatitis grade 2 presented back to the emergency department with abdominal pain found to have elevated enzymes. Admit marichuy to regular nursing floor consult placed to GI as well as general surgery 2. Diabetes mellitus type II -patient's oral hypoglycemics held. Placed on long acting insulin, Accu-Cheks a.c. and at bedtime and covered with sliding scale insulin 3. Hypothyroidism - Patient is on levothyroxine home dose continued 4. Hypertension - Blood pressure controlled, home medications continued with dose adjustment as needed 5. Dyslipidemia ? Status held given patient acute transaminitis 6. Depression ? Patient is on venlafaxine did continue 7. DVT prophylaxis ? SC Lovenox Time spent in the patient's overall evaluation,decision-making process, review of diagnostic data, adjustment of management, discussion with other providers, nursing nursing and ancillary staff involved in patient's care documentation, 50-minute Charges/Coding Visit Charges Inpatient E&M: 73434 [facility] L3
--- NOTE | 2022-10-17 08:25 | PCM.PN.SRG ---
Subjective Subjective Patient denies any abdominal pain tolerated regular breakfast this morning without any increased pain. Patient's LFTs are trending down Objective Data Objective Data Vital Signs: Vital Signs Temp Pulse Resp BP Pulse Ox O2 Del Method O2 Flow Rate 98 F 75 16 128/82 H 94 Room Air 2 10/17/22 04:08 10/17/22 04:08 10/17/22 04:08 10/17/22 04:08 10/17/22 04:08 10/17/22 07:45 10/16/22 09:54 Oxygen Flow Rate (L/min) 2 Oxygen Delivery Method Room Air Weight: 186 lb 8.177 oz Body Mass Index (BMI) 29.2 Intake & Output: Intake and Output for Last 24 Hours 10/15/22 10/16/22 10/17/22 23:59 23:59 23:59 Intake Total 2255.55 / 2255.55 120 / 120 Balance 2255.55 / 2255.55 120 / 120 Lab / Micro Data 10/17/22 05:34 10/17/22 05:34 Labs: Laboratory Results - last 24 hr 10/16/22 08:20: WBC 7.3, RBC 4.09 L, Hgb 12.0, Hct 39.6, MCV 96.8, MCH 29.3, MCHC 30.3 L, RDW Std Deviation 50.7 H, RDW Coeff of Charan 14.3, Plt Count 415, MPV 9.7, Immature Gran % (Auto) 0.400, Neut % (Auto) 82.8 H, Lymph % (Auto) 9.2 L, [place] % (Auto) 6.5, Eos % (Auto) 0.3, Baso % (Auto) 0.8, Absolute Neuts (auto) 6.0, Absolute Lymphs (auto) 0.67 L, Nucleated RBC % 0, Sodium 138, Potassium 5.1, Chloride 101, Carbon Dioxide 31.0, Anion Gap 6, BUN 16, Creatinine 0.75, Estim Creat Clear Calc 74.67, Est GFR (MDRD) Af Amer 101, Est GFR (MDRD) Non-Af 83, BUN/Creatinine Ratio 21.3 H, Glucose 258 H, Hemoglobin A1c 6.2 H, Calcium 8.6, Phosphorus 3.8, Magnesium 2.2, Total Bilirubin 1.30 H, AST 1078 H, ALT 555 H, Alkaline Phosphatase 128 H, Total Protein 6.9, Albumin 3.4, Globulin 3.5, Albumin/Globulin Ratio 1.0 10/16/22 12:24: POC Glucose 146 H 10/16/22 16:36: POC Glucose 69 L 10/17/22 01:37: POC Glucose 130 H 10/17/22 05:34: WBC 7.8, RBC 3.88 L, Hgb 11.5 L, Hct 37.2, MCV 95.9, MCH 29.6, MCHC 30.9 L, RDW Std Deviation 50.2 H, RDW Coeff of Charan 14.3, Plt Count 358, MPV 10.0, Immature Gran % (Auto) 0.300, Neut % (Auto) 75.2 H, Lymph % (Auto) 12.3 L, [place] % (Auto) 7.2, Eos % (Auto) 4.0, Baso % (Auto) 1.0, Absolute Neuts (auto) 5.9, Absolute Lymphs (auto) 0.96, Nucleated RBC % 0, Sodium 139, Potassium 3.8, Chloride 108 H, Carbon Dioxide 29.0, Anion Gap 2 L, BUN 9, Creatinine 0.57, Estim Creat Clear Calc 98.26, Est GFR (MDRD) Af Amer 139, Est GFR (MDRD) Non-Af 115, BUN/Creatinine Ratio 15.8, Glucose 173 H, Calcium 8.5, Total Bilirubin 0.90, Direct Bilirubin 0.41 H, AST 313 H, ALT 422 H, Alkaline Phosphatase 132 H, Total Protein 6.4, Albumin 2.9 L, Globulin 3.5 10/17/22 06:55: POC Glucose 169 H Radiography Diagnostic Testing: Radiology Impression Abdomen/Pelvis CT 10/16/22 05:24 IMPRESSION: Partial resolution of pancreatitis. Hepatomegaly. Trace pericholecystic fluid, less pronounced than the prior examinations. 1.9 cm left adrenal nodule, consider hormonal workup and/or endocrinology consult. Electronically Signed: Renee Lr MD at 9:58 EDT , MRC 10/16/22 10:21 IMPRESSION: Cholelithiasis. Electronically Signed: Cyril Resendez MD at 21:07 EDT , Abdomen Ultrasound 10/16/22 10:24 IMPRESSION: Cholelithiasis with sludge. Mild pericholecystic fluid and gallbladder wall thickening. Enlarged fatty liver. Electronically Signed: Donald Lane DO at 20:38 EDT , Physical Exam Const oriented x3 and no apparent distress Resp normal respiratory effort Cardio regular rate GI soft to palpation and non-tender Inspection: Negative for abdominal distention Assessment & Plan Assessment/Plan (1) Cholelithiasis: QUALIFIERS: Cholelithiasis location: gallbladder Cholecystitis presence: without cholecystitis Biliary obstruction: without biliary obstruction Qualified Code(s): K80.20 - Calculus of gallbladder without cholecystitis without obstruction (2) Right upper quadrant abdominal pain: (3) Transaminitis: PLAN: Plan Patient's pain has resolved was able to tolerate regular diet including better without any increased pain. This further points to not being gallbladder etiology. LFTs are trending down as well. No plans for general surgery intervention. Plan for discharge today per primary Marcela Fritz M.D. Pager: [phone] [facility] [address] [place] [address], [facility], [address] [place] [address] Office: [phone] Charges/Coding Visit Charges Inpatient E&M: 94200 Subs Hosp L2
[2022-10-17 09:34] VITALS: BP 135/77; PULSE 106; RESP 18; TEMP 37; O2SAT 94
--- NOTE | 2022-10-17 09:35 | DS.PCM_ITS ---
Providers Date of Admission: 10/16/22 Date of Discharge: 10/17/22 Primary Care Physician: Dr. Raymond Arce MD Consultations 10/16/22 05:32 Consult: Gastroenterology Routine Consulting Provider: [facility] Reason for Consult: Intractable abdominal pain EMERGENT Consult: No Notified: Yes Date Notified: 10/16/22 Time Notified: 05:17 Method of Notification: Text Consult: General Surgery Routine Consulting Provider: Marcela Fritz Reason for Consult: Cholelithiasis EMERGENT Consult: No Notified: Yes Date Notified: 10/16/22 Time Notified: 08:29 Method of Notification: Verbal Reason For Visit: INTRACTABLE ABDOMINAL PAIN/TRANSAMINITIS Diagnosis Discharge Diagnosis (1) Intractable abdominal pain: Status: Acute Code(s): R10.9 - Unspecified abdominal pain (2) Disease of gallbladder: Status: Acute Code(s): K82.9 - Disease of gallbladder, unspecified (3) Transaminitis: Status: Acute Code(s): R74.01 - Elevation of levels of liver transaminase levels Plan Patient is a 61-year-old female who presented with abdominal pain. Patient was on admission 2 weeks prior underwent liver biopsy which demonstrated acute cholangitis, bile stasis, mild macrovesicular steatosis and chronic hepatitis grade 2 presented back to the emergency department with abdominal pain found to have elevated enzymes 1. Abdominal pain with acute transaminitis ? patient was on admission 2 weeks prior to her readmission. Underwent liver biopsy on 09/28/2022 which demonstrated acute cholangitis, bile stasis, mild macrovesicular steatosis and chronic hepatitis grade 2 presented back to the emergency department with abdominal pain found to have elevated enzymes. Admitted to regular nursing floor consult placed to GI as well as general surgery ? 10/17/2022; patient was placed on meropenem for suspected cholangitis. Case was discussed with both GI and general surgery. Differential diagnosis of her presentation included antibody negative autoimmune hepatitis, overlap syndrome with PSC and antibody negative PBC, acute intermittent porphyria, choledoch olithiasis, small duct PSC. Plan is to send her liver biopsy will be sent out for a second opinion. Patient was discharged on Flagyl and Levaquin we will follow-up with GI for subsequent eval and management 2. Diabetes mellitus type II -patient's oral hypoglycemics held. Placed on long acting insulin, Accu-Cheks a.c. and at bedtime and covered with sliding scale insulin 3. Hypothyroidism - Patient is on levothyroxine home dose continued 4. Hypertension - Blood pressure controlled, home medications continued with dose adjustment as needed 5. Dyslipidemia ? Status held given patient acute transaminitis 6. Depression ? Patient is on venlafaxine did continue 7. DVT prophylaxis ? SC Lovenox Time spent in the patient's overall evaluation,decision-making process, review of diagnostic data, adjustment of management, discussion with other providers, nursing nursing and ancillary staff involved in patient's care documentation, 50-minute Medications at Discharge Home Medications enalapril maleate 20 mg tablet (Vasotec) 20 mg PO BID BP 01/24/15 venlafaxine 150 mg capsule,extended release 24 hr 150 mg PO DAILY 01/24/15 amitriptyline 75 mg tablet 75 mg PO QHS sleep 03/01/22 gabapentin 600 mg tablet 600 mg PO Q8H 03/01/22 levothyroxine 137 mcg tablet (Synthroid) 137 mcg PO DAILY THYROID 09/22/22 pantoprazole 40 mg tablet,delayed release (Protonix) 40 mg PO BID #60 tabs 09/28/22 ursodiol 300 mg capsule 300 mg PO BID #60 caps 10/13/22 meloxicam 15 mg tablet 15 mg PO DAILY 10/16/22 levofloxacin 500 mg tablet 500 mg PO DAILY 7 days #7 tabs 10/17/22 metronidazole 500 mg tablet 500 mg PO Q8H #20 tabs 10/17/22 Hospital Course Summary of Care Provided Minutes Spent on Discharge: 35 Physical Exam Narrative GENERAL: cooperative HEENT: Atraumatic; normocephalic EYES; Anicteric, Normal Conjunctiva NECK; supple, normal thyroid, RESPIRATORY: Diminished to auscultation CARDIOVASCULAR: Regular S1 S2, GI: soft, normoactive bowel sounds, : No Renal angle tenderness; EXTREMITIES: No edema, no clubbing, MUSCULOSKELETAL: no muscle wasting NEURO: Awake; no lateralizing signs. SKIN: No Rash PSYCH; Flat affect Weight / BMI Weight Weight: 84.6 kg Body Mass Index (BMI) 29.2 ABG / Lab / Microbiology Data 10/17/22 05:34 10/17/22 05:34 Laboratory: Laboratory Results - last 24 hr 10/16/22 08:20: Sodium 138, Potassium 5.1, Chloride 101, Carbon Dioxide 31.0, Anion Gap 6, BUN 16, Creatinine 0.75, Estim Creat Clear Calc 74.67, Est GFR (MDRD) Af Amer 101, Est GFR (MDRD) Non-Af 83, BUN/Creatinine Ratio 21.3 H, Glucose 258 H, Hemoglobin A1c 6.2 H, Calcium 8.6, Phosphorus 3.8, Magnesium 2.2, Total Bilirubin 1.30 H, AST 1078 H, ALT 555 H, Alkaline Phosphatase 128 H, Total Protein 6.9, Albumin 3.4, Globulin 3.5, Albumin/Globulin Ratio 1.0 10/16/22 12:24: POC Glucose 146 H 10/16/22 16:36: POC Glucose 69 L 10/17/22 01:37: POC Glucose 130 H 10/17/22 05:34: WBC 7.8, RBC 3.88 L, Hgb 11.5 L, Hct 37.2, MCV 95.9, MCH 29.6, MCHC 30.9 L, RDW Std Deviation 50.2 H, RDW Coeff of Charan 14.3, Plt Count 358, MPV 10.0, Immature Gran % (Auto) 0.300, Neut % (Auto) 75.2 H, Lymph % (Auto) 12.3 L, [place] % (Auto) 7.2, Eos % (Auto) 4.0, Baso % (Auto) 1.0, Absolute Neuts (auto) 5.9, Absolute Lymphs (auto) 0.96, Nucleated RBC % 0, Sodium 139, Potassium 3.8, Chloride 108 H, Carbon Dioxide 29.0, Anion Gap 2 L, BUN 9, Creatinine 0.57, Estim Creat Clear Calc 98.26, Est GFR (MDRD) Af Amer 139, Est GFR (MDRD) Non-Af 115, BUN/Creatinine Ratio 15.8, Glucose 173 H, Calcium 8.5, Total Bilirubin 0.90, Direct Bilirubin 0.41 H, AST 313 H, ALT 422 H, Alkaline Phosphatase 132 H, Total Protein 6.4, Albumin 2.9 L, Globulin 3.5 10/17/22 06:55: POC Glucose 169 H Radiography Diagnostic Testing: Radiology Impression Abdomen/Pelvis CT 10/16/22 05:24 IMPRESSION: Partial resolution of pancreatitis. Hepatomegaly. Trace pericholecystic fluid, less pronounced than the prior examinations. 1.9 cm left adrenal nodule, consider hormonal workup and/or endocrinology consult. Electronically Signed: Renee Lr MD at 9:58 EDT , MRCP 10/16/22 10:21 IMPRESSION: Cholelithiasis. Electronically Signed: Cyril Resendez MD at 21:07 EDT , Abdomen Ultrasound 10/16/22 10:24 IMPRESSION: Cholelithiasis with sludge. Mild pericholecystic fluid and gallbladder wall thickening. Enlarged fatty liver. Electronically Signed: Donald Lane DO at 20:38 EDT , D/C Instructions Discharge Diet: No restrictions Discharge Activity: Return to Normal Activity Call your doctor if you observe: Fever of 101 or Higher, Shortness of breath, Fainting spells and Chest pain Meaningful Use Info Meaningful Use Diagnoses (Choose all that apply): None applicable Discharge Plan Admission Admit Date/Time: 10/16/22 05:12 Attending Provider: Krish Weeks Primary Care Provider: Raymond Arce Consulting Providers: Ignacia Adkins; Marcela Fritz Discharge Orders/Prescriptions Prescriptions: New levofloxacin 500 mg tablet 500 mg PO DAILY 7 Days Qty: 7 0RF metronidazole 500 mg tablet 500 mg PO Q8H Qty: 20 0RF Continued gabapentin 600 mg tablet 600 mg PO Q8H amitriptyline 75 mg tablet 75 mg PO QHS ursodiol 300 mg capsule 300 mg PO BID Qty: 60 11RF enalapril maleate [Vasotec] 20 MG tablet 20 mg PO BID venlafaxine 150 MG capsule 150 mg PO DAILY levothyroxine [Synthroid] 137 mcg tablet 137 mcg PO DAILY pantoprazole [Protonix] 40 mg tablet,delayed release (DR/EC) 40 mg PO BID Qty: 60 0RF meloxicam 15 mg tablet 15 mg PO DAILY Referrals / Follow Up: Raymond Arce MD [Primary Care Provider] - Within 1 Week FriendFaheem DO [Med Staff - Active Staff] - Disposition Disposition (needs filled in before D/C Order can be placed): Home, Self Care Charges/Coding Visit Charges Inpatient E&M: 23348 Disch Hosp >30min
[2022-10-17] MEDS: Pantoprazole Sodium 40 MG Tablet PO (09:43)
[2022-10-17] MEDS: Venlafaxine XR 150 MG Capsule PO (09:43)
[2022-10-17] MEDS: Lisinopril 20 MG Tablet PO (09:44)
[2022-10-17] MEDS: Ursodiol 250 MG Tablet PO (09:44)
[2022-10-17] MEDS: Lactated Ringers 1,000 ML 75 ML IV (09:46)
--- NOTE | 2022-10-17 10:10 | PN.GI_ITS ---
Subjective Subjective Patient feels well without any abdominal pain since being on antibiotics. Objective Data Objective Data Vital Signs: Vital Signs Temp Pulse Resp BP Pulse Ox O2 Del Method O2 Flow Rate 98.6 F 106 H 18 135/77 H 94 Room Air 2 10/17/22 09:34 10/17/22 09:34 10/17/22 09:34 10/17/22 09:34 10/17/22 09:34 10/17/22 09:34 10/16/22 09:54 Oxygen Flow Rate (L/min) 2 Oxygen Delivery Method Room Air Weight: 186 lb 8.177 oz Body Mass Index (BMI) 29.2 Intake & Output: Intake and Output for Last 24 Hours 10/15/22 10/16/22 10/17/22 23:59 23:59 23:59 Intake Total 2886.80 / 2886.80 220 / 220 Balance 2886.80 / 2886.80 220 / 220 Lab / Micro Data 10/17/22 05:34 10/17/22 05:34 Labs: Laboratory Results - last 24 hr 10/16/22 12:24: POC Glucose 146 H 10/16/22 16:36: POC Glucose 69 L 10/17/22 01:37: POC Glucose 130 H 10/17/22 05:34: WBC 7.8, RBC 3.88 L, Hgb 11.5 L, Hct 37.2, MCV 95.9, MCH 29.6, MCHC 30.9 L, RDW Std Deviation 50.2 H, RDW Coeff of Charan 14.3, Plt Count 358, MPV 10.0, Immature Gran % (Auto) 0.300, Neut % (Auto) 75.2 H, Lymph % (Auto) 12.3 L, [place] % (Auto) 7.2, Eos % (Auto) 4.0, Baso % (Auto) 1.0, Absolute Neuts (auto) 5.9, Absolute Lymphs (auto) 0.96, Nucleated RBC % 0, Sodium 139, Potassium 3.8, Chloride 108 H, Carbon Dioxide 29.0, Anion Gap 2 L, BUN 9, Creatinine 0.57, Estim Creat Clear Calc 98.26, Est GFR (MDRD) Af Amer 139, Est GFR (MDRD) Non-Af 115, BUN/Creatinine Ratio 15.8, Glucose 173 H, Calcium 8.5, Total Bilirubin 0.90, Direct Bilirubin 0.41 H, AST 313 H, ALT 422 H, Alkaline Phosphatase 132 H, Total Protein 6.4, Albumin 2.9 L, Globulin 3.5 10/17/22 06:55: POC Glucose 169 H Radiography Diagnostic Testing: Radiology Impression MRCP 10/16/22 10:21 IMPRESSION: Cholelithiasis. Electronically Signed: Cyril Resendez MD at 21:07 EDT , Abdomen Ultrasound 10/16/22 10:24 IMPRESSION: Cholelithiasis with sludge. Mild pericholecystic fluid and gallbladder wall thickening. Enlarged fatty liver. Electronically Signed: Donald Lane DO at 20:38 EDT , Physical Exam Narrative GENERAL: cooperative HEENT: Atraumatic; normocephalic EYES; Anicteric, Normal Conjunctiva NECK; supple, normal thyroid, RESPIRATORY: Diminished to auscultation CARDIOVASCULAR: Regular S1 S2, GI: soft, normoactive bowel sounds, : No Renal angle tenderness; EXTREMITIES: No edema, no clubbing, MUSCULOSKELETAL: no muscle wasting NEURO: Awake; no lateralizing signs. SKIN: No Rash PSYCH; Flat affect Assessment & Plan Assessment/Plan (1) Intractable abdominal pain: (2) Disease of gallbladder: (3) Transaminitis: PLAN: Plan Intractable abdominal pain -Etiology is unclear -Patient recently admitted with pancreatitis and had liver biopsy -Currently no signs of acute pancreatitis as were present at her last visit -Had ultrasound/MRCP/CT of the abdomen/HIDA scan/an liver biopsy done her last admission -Repeat CT of the abdomen pelvis with contrast today does not display any sign of obstruction at this time. -Repeat MRCP and ultrasound look the same as on previous visit. I discussed t his with surgery and it was thought that the findings on the imaging are likely secondary to inflammation from the liver and not actually from acute cholecystitis. - Transaminitis -Bilirubin has almost normalized and the AST and ALT are trending down with use of antibiotics. That does not correlate with acute cholecystitis. -Continue home ursodiol -Differential diagnosis does include antibody negative autoimmune hepatitis, overlap syndrome with PSC and antibody negative PBC, acute intermittent porphyria, choledocholithiasis, small duct PSC. Her liver biopsy will be sent out for a second opinion. -Patient can be switched to Levaquin and Flagyl Cholelithiasis -Unclear if this is currently contributing to her issues at all - Awaiting general surgery opinion Hypertension -Continue home enalapril Hypothyroidism -Continue home levothyroxine GERD -Continue pantoprazole YOUSSEF liver disease -Continue home ursodiol -Liver biopsy done at last visit Charges/Coding Visit Charges Inpatient E&M: 58080 [facility] Hosp L3
[2022-10-18 14:08] LABS: EBV Acute VCA IgM < 36.0 U/mL (0.0-35.9); EBV Nuclear Antigen IgG < 18.0 U/mL (0.0-17.9)
== END 2022-10-17 11:33 | disposition home or self-care (01) | DRG 445 ==
LOC: ED 04:47 → MS3 05:20 → PCU 11:42
PROVIDERS: Internal Medicine Gastroenterology; Surgery; Admitting Provider Internal Medicine; Emergency Provider Emergency Medicine; PCP Family Medicine; Visit Provider Internal Medicine
DX: K80.20 Calculus of gallbladder without cholecystitis without obstruction (principal); B18.9 Chronic viral hepatitis, unspecified; K75.81 Nonalcoholic steatohepatitis (NASH); E11.9 Type 2 diabetes mellitus without complications; I10 Essential (primary) hypertension; F32.A Depression, unspecified; E89.0 Postprocedural hypothyroidism; K21.9 Gastro-esophageal reflux disease without esophagitis; E78.5 Hyperlipidemia, unspecified; R74.01 Elevation of levels of liver transaminase levels; Z79.2 Long term (current) use of antibiotics; Z66 Do not resuscitate
CPT/HCPCS: 36415; 74177; 74181; 76700; 80048; 80053; 80076; 82962; 83036; 83690; 83735; 84100; 85025; 86664; 86665; 94668; 97802; 99283; J2185; J7050; J7120; Q9967; A4216; J2405

== ENCOUNTER 2022-10-22 08:44 | Emergency (ER) | payer OTHER, SELFPAY ==
[2022-10-22 08:45] VITALS: BP 90/53; PULSE 97; RESP 18; TEMP 36.8; O2SAT 97; BMI 30.1
--- NOTE | 2022-10-22 08:56 | US_ITS ---
STUDY: ABDOMINAL ULTRASOUND - RIGHT UPPER QUADRANT REASON FOR VISIT: Female, 61 years old abdomen pain -- hx cholelithiasis, cholangitis TECHNIQUE: Ultrasound evaluation of the right upper quadrant was performed with real-time and static parada-scale imaging. TECHNICAL QUALITY: Adequate. COMPARISON: Comparison is made with prior examination October 16, 2022. FINDINGS: Liver: The liver measures 16.3 cm. There is increased echogenicity consistent with fatty infiltration. The bile ducts are within normal limits. There is hepatic color flow. The direction of portal flow is hepatopetal. There is no demonstrated mass lesion. Gallbladder: Normal distended gallbladder. The gallbladder wall is thickened and measures 4.3 mm. There is a negative sonographic Bliss''s sign. There is no pericholecystic fluid. There are multiple echogenic structures within the gallbladder, consistent with multiple gallstones. Common Bile Duct (C.B.D.): The common bile duct measures 3.8 mm. Pancreas: Normal size of the head of the pancreas. The body and tail portions are obscured due to overlying bowel gas. There is normal echogenicity of the pancreas. There is no demonstrated pancreatic mass or cyst. Right Kidney: Normal size of the right kidney. The right kidney measures 12.5 cm x 6.8 cm x 6.5 cm. Normal renal cortex. The right cortex measures 2.4 cm. There is no demonstrated renal mass or cyst. There is no right hydronephrosis. US/Gallbladder IMPRESSION: Fatty infiltration of the liver. Multiple gallstones and mild thickening of the gallbladder wall. Electronically Signed: Maxime Saucedo MD at 11:00 EDT ,
--- NOTE | 2022-10-22 08:57 | EKG12_ITS ---
Test Reason : SYNCOPE Blood Pressure : / mmHG Vent. Rate : 095 BPM Atrial Rate : 095 BPM P-R Int : 130 ms QRS Dur : 080 ms QT Int : 362 ms P-R-T Axes : 047 039 063 degrees QTc Int : 454 ms Normal sinus rhythm Normal ECG Confirmed by DAWN PEREZ, KIRK ([id number]), online editor NAOMI GUSMAN ([id number]) on 11/08/2022 2:21:16 PM Referred By: SERENE Confirmed By:LIBERTY SEYMOUR MD
--- NOTE | 2022-10-22 09:02 | EX.ED.DYSGE1 ---
HPI History of Present Illness Chief Complaint: Syncope Informant: patient and spouse/S.O. Narrative Narrative: Presents today by EMS near syncopal episode with increasing upper abdominal pain this morning. No nausea or vomiting no diarrhea. Spouse is currently present, patient was discharged 4 days ago from the hospital for treatment of cholangitis. She is on Levaquin and Flagyl due to penicillin allergies. Last dose was at midnight yesterday. She still having some pain however it worsened this morning. No this morning increasing jaundice. 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 Reported there was a biopsy performed sent to the [facility] and is pending. Symptoms all started early last month and this is her third visit to the hospital. States she had chills today. States did not have a syncopal episode. No chest pains no shortness of breath. Decreased appetite. Prior similar symptoms: Yes PFSH PFSH Medical History Acute liver failure Anxiety Cancer Depression Diabetes mellitus DVT (deep venous thrombosis) History of blood clots Hx of thyroid cancer Hypertension Hypothyroidism Post-menopausal Syncope TIA (transient ischemic attack) Home Medications enalapril maleate 20 mg tablet (Vasotec) 20 mg PO BID BP 01/24/15 [History Last Taken 01/31/15 05:00] venlafaxine 150 mg capsule,extended release 24 hr 150 mg PO DAILY 01/24/15 [History Last Taken Unknown] amitriptyline 75 mg tablet 75 mg PO QHS sleep 03/01/22 [History Last Taken Unknown] gabapentin 600 mg tablet 600 mg PO Q8H 03/01/22 [History Last Taken Unknown] levothyroxine 137 mcg tablet (Synthroid) 137 mcg PO DAILY THYROID 09/22/22 [History Last Taken Unknown] pantoprazole 40 mg tablet,delayed release (Protonix) 40 mg PO BID #60 tabs 09/28/22 [Rx Last Taken Unknown] ursodiol 300 mg capsule 300 mg PO BID #60 caps 10/13/22 [Rx Last Taken Unknown] meloxicam 15 mg tablet 15 mg PO DAILY 10/16/22 [History Last Taken Unknown] levofloxacin 500 mg tablet 500 mg PO DAILY 7 days #7 tabs 10/17/22 [Rx Last Taken Unknown] metronidazole 500 mg tablet 500 mg PO Q8H #20 tabs 10/17/22 [Rx Last Taken Unknown] Allergy/AdvReac Type Severity Reaction Status Date / Time amoxicillin Allergy Intermediate RASH Verified 10/16/22 02:59 Penicillins [PCN] Allergy Anaphylaxis Verified 09/22/22 08:22 vancomycin Allergy Anaphylaxis Verified 09/22/22 08:22 Family History (Updated 10/16/22 @ 05:[address] Ignacia Adkins DO) Other Diabetes Hypertension Surgical History History of carpal tunnel release of both wrists Hx of oophorectomy Hx of thyroidectomy Social History (Updated 10/16/22 @ 05:[address] Ignacia Adkins DO) household members: spouse housing: house Smoking Status: Never smoker alcohol intake: never substance use type: does not use ROS ROS ED Constitutional Constitutional ED: Reports chills; Denies fever(s) or sweats Eyes Eyes: Denies change in vision ENT ENT ED: Denies dysphagia or sore throat Cardiovascular Cardiovascular: Reports other Details: Lightheaded ; Denies chest pain, leg edema, palpitations or racing heartbeat Respiratory/Chest Respiratory/Chest: Denies cough, dyspnea or dyspnea on exertion Gastrointestinal Gastrointestinal: Reports abdominal pain; Denies diarrhea, nausea or vomiting Genitourinary Genitourinary ED: Denies dysuria, hematuria or urinary frequency Musculoskeletal Musculoskeletal: Denies back pain, extremity pain or neck pain Integumentary Denies rash or wounds Neurologic Neurologic: Denies headache(s), paresthesias or weakness EXAM Physical Exam Const Vital Signs: 10/22/22 08:45 10/22/22 10:14 10/22/22 12:22 Temperature 98.2 F Temperature Source Temporal Pulse Rate 97 92 94 Respiratory Rate 18 18 17 Blood Pressure 90/53 L 102/70 100/70 Blood Pressure Mean 65 80 80 Pulse Ox 97 97 91 Oxygen Delivery Method Room Air Room Air Room Air 10/22/22 14:14 10/22/22 14:42 Temperature Temperature Source Pulse Rate 92 90 Respiratory Rate Blood Pressure 109/75 97/71 Blood Pressure Mean 86 79 Pulse Ox 93 Oxygen Delivery Method Room Air Positive well nourished and well developed Constitutional Narrative: Peers fatigue, generalized jaundice General Appearance ED: well developed HEENT Reports moist mucous membranes normocephalic and atraumatic Eyes PERRL and EOMs intact bilaterally General Eye ED: Yes normal appearance of both eyes and scleral icterus Neck no lymphadenopathy and supple General: Negative for tenderness Chest Wall Chest: Negative for tenderness Resp normal respiratory effort and normal air movement Effort and Inspection: symmetric chest movement; Negative for respiratory distress Cardio regular rate, regular rhythm and no murmurs Peripheral Pulses: pulses 2+ throughout GI normal to inspection, nondistended, normoactive bowel sounds GI Narrative: Pain epigastrium. Negative Bliss's and McBurney's tenderness. Palpation: Negative for guarding or rebound tenderness present Back/Spine no CVA tenderness and no thoracic nor lumbar tenderness Extremity normal to inspection General Extremety ED: Negative for edema or tenderness General Extremity: Negative for edema Neuro oriented x3 and no sensory deficits noted Sensorium / Orientation: awake and alert Skin no rashes or lesions noted and no wounds General Skin Exam: jaundice MDM MDM MDM Narrative Medical decision making narrative: Interventions / MDM: Differential diagnosis: Cholangitis, near syncope, sepsis, cholelithiasis, choledocholithiasis Diagnosis considered but do not suspect: N/A My EKG interpretation: Sinus rate of 95, no ST or T wave changes. Imaging independently reviewed and interpreted by myself: Right upper quadrant ultrasound External documents reviewed: Previous recent hospitalization multiple MRCP's CT scans and ultrasounds were performed. Cholelithiasis, there were trace pericholecystic fluid on previous CTs. MRCP's and ultrasounds did not note any CBD dilatations. Test considered but not ordered:N/A ED course: Patient had a near syncopal episode blood pressure 90/53 on arrival fluids is running. Known recent cholangitis, she is afebrile currently however with her history sepsis labs were ordered. Fluids were ordered. Tender in epigastrium, with increasing jaundice will reorder ultrasound for evaluation. Spouse is requesting transfer to different hospital for evaluation with stabilization of her symptoms. She declines any pain medicines at this time. 0935: WBC returned at 16 up from 8 previously. Blood culture drawn earlier. Patient anaphylaxis to the penicillins. Will give IV Levaquin and IV Flagyl. 1050: Lipase up to 43 total bilirubin 5.4 direct bilirubin 4.6. AST at 132, ALT 146, alk phos 446. Creatinine 1.73 up from 1.8 previously. Blood pressure 104/70 in the room. Ultrasound results pending. Lactic acid returned at 2.6. She meets severe sepsis criteria with cholangitis concerns. 1255: Blood pressure 100/70 with a MAP of 83. I spoke with [facility] hospitalist Dr. Lewis, discussed patient's history hospitalizations and findings. Image studies from the hospitalization MRCP's will be pushed up to the facility with CTs and ultrasounds. Additional labs from recent hospitalization will be also added to the chart for them the evaluation compare. Patient will be transferred to [facility] for further evaluation. Of note, I also did discuss with her GI doctor Dr. Bentley updated her presentation and family's request for transfer. Re-evaluation: stable Disposition discussed with patient/family/significant other: Patient and family Case discussed with consulting clinician: [facility] Hospitalist Dr. Lewis This note was generated with [employer] dictation software. It may contain incorrect words, spelling, and punctuation that were not noted in checking the note before signing. Lab Data Attestation: I reviewed the patient's lab results. Labs: Laboratory Results - last 24 hr 10/22/22 10/22/22 09:01 13:36 WBC 16.1 H RBC 4.74 Hgb 14.0 Hct 45.3 MCV 95.6 MCH 29.5 MCHC 30.9 L RDW Std Deviation 48.8 H RDW Coeff of Charan 13.9 Plt Count 410 MPV 9.7 Immature Gran % (Auto) 0.600 Neut % (Auto) 86.1 H Lymph % (Auto) 2.9 L Desha % (Auto) 9.9 Eos % (Auto) 0.1 Baso % (Auto) 0.4 Absolute Neuts (auto) 13.9 H Absolute Lymphs (auto) 0.47 L Nucleated RBC % 0 Diff Path Review May foll PT 13.9 INR 1.1 APTT 26.1 Sodium 137 Potassium 4.3 Chloride 101 Carbon Dioxide 28.0 Anion Gap 8 BUN 12 Creatinine 1.73 H Estim Creat Clear Calc 31.12 Est GFR (MDRD) Af Amer 39 L Est GFR (MDRD) Non-Af 32 L BUN/Creatinine Ratio 6.9 L Glucose 305 H Lactic Acid 2.6 H* 1.3 Calcium 9.2 Total Bilirubin 5.40 H Direct Bilirubin 4.66 H AST 132 H ALT 146 H Alkaline Phosphatase 446 H Total Protein 6.4 Albumin 2.8 L Globulin 3.6 Lipase 4300 H Radiography Diagnostic Testing: Clinical Impression(s) from Imaging Studies Gallbladder Ultrasound 10/22/22 08:56 IMPRESSION: Fatty infiltration of the liver. Multiple gallstones and mild thickening of the gallbladder wall. Electronically Signed: Maxime Saucedo MD at 11:00 EDT , Critical Care Time Critical Care Time: Yes Critical care time (excluding procedures): 30-74 minutes, Discussing w/Consultants, Arranging Admission or Transfer and Performing Direct Patient Care at Bedside Discharge Plan Triage Chief Complaint: Syncope ED Provider: Mickey Higuera Dx/Rx/DC Orders Clinical Impression: SISI (acute kidney injury), Choledocholithiasis, Cholangitis, Severe sepsis, Obstructive jaundice, Cholelithiasis Prescriptions: No Action gabapentin 600 mg tablet 600 mg PO Q8H amitriptyline 75 mg tablet 75 mg PO QHS ursodiol 300 mg capsule 300 mg PO BID Qty: 60 11RF enalapril maleate [Vasotec] 20 MG tablet 20 mg PO BID venlafaxine 150 MG capsule 150 mg PO DAILY levothyroxine [Synthroid] 137 mcg tablet 137 mcg PO DAILY pantoprazole [Protonix] 40 mg tablet,delayed release (DR/EC) 40 mg PO BID Qty: 60 0RF meloxicam 15 mg tablet 15 mg PO DAILY levofloxacin 500 mg tablet 500 mg PO DAILY 7 Days Qty: 7 0RF metronidazole 500 mg tablet 500 mg PO Q8H Qty: 20 0RF Primary Care Provider: Raymond Arce Referrals: Raymond Arce MD [Primary Care Provider] - Disposition Disposition: DC/Tx to Another Type of HCF Discharge Date/Time: 10/22/22 14:44
[2022-10-22] MEDS: 0.9% Normal Saline 1,000 ML 1000 ML IV (09:11)
[2022-10-22 09:12] LABS: Absolute Lymphocyte Count 0.47 X10^3/uL (0.83-4.51); Absolute Neutrophil Count 13.9 X10^3/uL (2.0-7.7); Basophil# 0.07 X10^3/uL; Basophil% 0.4 % (0-1); Eosinophil# 0.01 X10^3/uL; Eosinophils% 0.1 % (0-5); Hematocrit 45.3 % (37-47); Lymphocyte # 0.47 X10^3/ul (0.83-4.51); Lymphocyte % 2.9 % (19-41); Mean Corp Hgb Conc 30.9 g/dL (32-36); Mean Corpuscular Hgb 29.5 pg (27.0-32.0); Mean Corpuscular Volume 95.6 fL (81-99); Mean Platelet Vol. 9.7 fl (6.2-12.0); Monocyte# 1.59 X10^3/uL; Monocyte% 9.9 % (0-10); NRBC Flagged by Analyzer 0 % (0-5); Neutrophil # 13.88 X10^3/uL (2.7-7.7); Neutrophil % 86.1 % (47-70); POSITIVE DIFFERENTIAL YES; Platelet Count 410 K/mm3 (150-450); RBC Distribution Width CV 13.9 % (11.6-14.6); RBC Distribution Width SD 48.8 fl (35.1-43.9); Red Blood Count 4.74 M/mm3 (4.2-5.4); White Blood Count 16.1 K/mm3 (4.4-11.0)
[2022-10-22 09:29] LABS: Differential Indicated SCAN CRITERIA MET
[2022-10-22 09:33] LABS: International Normalized Ratio 1.1; Prothrombin Time (Protime)PT. 13.9 SECONDS (11.7-14.9)
[2022-10-22 09:34] LABS: Partial Thromboplast Time 26.1 Seconds (24.1-36.2)
[2022-10-22 09:50] LABS: AST(SGOT) 132 U/L (15-37); Alanine Aminotransfer ALT/SGPT 146 U/L (13-56); Albumin, Serum 2.8 g/dL (3.2-5.0); Alkaline Phosphatase 446 U/L (45-117); Anion Gap 8 (5-15); BUN 12 mg/dL (7-18); BUN/Creat Ratio 6.9 RATIO (10-20); Bilirubin, Direct 4.66 mg/dL (0.00-0.30); Calcium,Total 9.2 mg/dL (8.5-10.1); Chloride 101 mmol/L (98-107); Creatinine, Serum 1.73 mg/dL (0.55-1.02); EST Glomerular Filtration Rate 32 mL/min (>60); Est Glom Filt Rate - Afr Amer 39 mL/min (>60); Estimated Creatinine Clearance 31.12 ml/min; Globulin 3.6 g/dL (2.2-4.2); Glucose 305 mg/dL (74-106); Lipase 4300 U/L (13-75); Potassium 4.3 mmol/L (3.5-5.1); Protein, Total 6.4 g/dL (6.4-8.2); Sodium Level 137 mmol/L (136-145)
[2022-10-22 09:52] LABS: Lactic Acid 2.6 mmol/L (0.4-1.9)
[2022-10-22] MEDS: metroNIDAZOLE 500 MG/100 ML BAG 100 MG IV (10:13)
[2022-10-22 10:14] VITALS: BP 102/70; PULSE 92; RESP 18; O2SAT 97
[2022-10-22] MEDS: fentaNYL 100 MCG/2 ML Ampul 50 MCG IV ×2 (10:46→14:10)
[2022-10-22] MEDS: Ondansetron 4 MG/2 ML Vial IV (10:46)
[2022-10-22] MEDS: levoFLOXacin IV 750 MG/150 ML BAG 100 MG IV (12:00)
[2022-10-22 12:22] VITALS: BP 100/70; PULSE 94; RESP 17; O2SAT 91
[2022-10-22 13:07] LABS: Reflex Lactate? Y
--- NOTE | 2022-10-22 14:06 | NURSING ---
report called to ROLANDO Mueller at [facility]
[2022-10-22 14:07] LABS: Lactic Acid 1.3 mmol/L (0.4-1.9)
[2022-10-22 14:14] VITALS: BP 109/75; PULSE 92; O2SAT 93
[2022-10-22 14:42] VITALS: BP 97/71; PULSE 90
[2022-10-26 09:01] LABS: Pathologist Review Reviewed
== END 2022-10-22 14:44 | disposition short-term general hospital (02) ==
PROVIDERS: Emergency Provider Emergency Medicine; PCP Family Medicine; Visit Provider Emergency Medicine
DX: A41.9 Sepsis, unspecified organism (principal); N17.9 Acute kidney failure, unspecified; R65.20 Severe sepsis without septic shock; E11.9 Type 2 diabetes mellitus without complications; K80.31 Calculus of bile duct with cholangitis, unspecified, with obstruction; K80.71 Calculus of gallbladder and bile duct without cholecystitis with obstruction; I10 Essential (primary) hypertension; E03.9 Hypothyroidism, unspecified; Z88.0 Allergy status to penicillin; Z79.890 Hormone replacement therapy; Z79.899 Other long term (current) drug therapy; Z86.73 Personal history of transient ischemic attack (TIA), and cerebral infarction without residual deficits; Z86.718 Personal history of other venous thrombosis and embolism
CPT/HCPCS: 76705; 80048; 80076; 83605; 83690; 85025; 85610; 85730; 87040; 93005; 96361; 96365; 96366; 96368; 96375; 96376; 99285; J2405

== ENCOUNTER → 2022-11-05 | Outpatient (CLI) | payer OTHER, SELFPAY ==
--- NOTE | 2022-11-05 10:50 | VDLE_ITS ---
Version 2 Reason For Study: Right leg pain RIGHT LEFT GSV is normal. CFV is compressible, spontaneous, phasic, CFV is compressible, spontaneous, phasic, competent, and demonstrates normal competent and demonstrates normal augmentation. augmentation. FV is compressible, spontaneous, phasic, competent and demonstrates normal augmentation. POP V is compressible, spontaneous, phasic, competent and demonstrates normal augmentation. T/P Trunk is compressible. PTV is compressible. RT PerV is compressible. Nonvascularized structure noted in the right popliteal fossa that measures 3.20 x 0.69 x 5.00 cm. Procedure This is a venous duplex using B-mode, color flow and spectral Doppler. Exam performed in department. A preliminary report was called and/or faxed to Isidra TAVERA. VL/Venous Duplex US, Unilateral Interpretation Summary Deep veins of the right lower extremity are patent and compressible segmentally . There is no evidence of right lower extremity deep vein thrombosis. Valvular competence osito ears intact within the proximal deep venous system on the right . The right great saphenous vein a ppears patent and compressible segmentally. A non-vascular, hypoechoic structure is noted in the right popliteal space, measuring 3.20 cm x 0.69 cm x 5.00 cm. This probably represents a poplit eal cyst. Clinical correlation is advised. Ordering Physician: Wilfredo Miner Referring Physician: Raymond Arce Performed By: Linda Betancur RVT
== END | disposition home or self-care (01) ==
LOC: CVS 10:50
PROVIDERS: PCP Family Medicine; Referring Provider Physician Assistant; Visit Provider Physician Assistant
DX: M79.604 Pain in right leg (principal); M25.561 Pain in right knee
CPT/HCPCS: 93971

== ENCOUNTER → 2022-11-18 | Outpatient (CLI) | payer OTHER, SELFPAY ==
[2022-11-18 12:40] LABS: Erythrocyte Sedimentation Rate 3 mm/hr (0-30)
[2022-11-18 12:42] LABS: Absolute Lymphocyte Count 1.82 X10^3/uL (0.83-4.51); Absolute Neutrophil Count 3.6 X10^3/uL (2.0-7.7); Basophil# 0.06 X10^3/uL; Basophil% 0.9 % (0-1); Eosinophil# 0.45 X10^3/uL; Hemoglobin 13.2 g/dL (12.0-15.0); Lymphocyte # 1.82 X10^3/ul (0.83-4.51); Lymphocyte % 28.2 % (19-41); Mean Corp Hgb Conc 31.4 g/dL (32-36); Mean Corpuscular Hgb 29.6 pg (27.0-32.0); Mean Corpuscular Volume 94.2 fL (81-99); Mean Platelet Vol. 10.3 fl (6.2-12.0); Monocyte# 0.49 X10^3/uL; Monocyte% 7.6 % (0-10); NRBC Flagged by Analyzer 0 % (0-5); Neutrophil # 3.61 X10^3/uL (2.7-7.7); Platelet Count 262 K/mm3 (150-450); RBC Distribution Width CV 13.2 % (11.6-14.6); RBC Distribution Width SD 45.7 fl (35.1-43.9); Red Blood Count 4.46 M/mm3 (4.2-5.4); White Blood Count 6.5 K/mm3 (4.4-11.0)
[2022-11-18 13:57] LABS: ALB/GLOB Ratio 1.1 RATIO (0.9-2.4); AST(SGOT) 23 U/L (15-37); Alanine Aminotransfer ALT/SGPT 28 U/L (13-56); Albumin, Serum 3.9 g/dL (3.2-5.0); Alkaline Phosphatase 98 U/L (45-117); Anion Gap 3 (5-15); BUN 19 mg/dL (7-18); CRP < 2.90 mg/L (0.0-3.0); Calcium,Total 9.2 mg/dL (8.5-10.1); Chloride 107 mmol/L (98-107); Creatinine, Serum 0.73 mg/dL (0.55-1.02); EST Glomerular Filtration Rate 86 mL/min (>60); Est Glom Filt Rate - Afr Amer 104 mL/min (>60); Globulin 3.5 g/dL (2.2-4.2); Glucose 109 mg/dL (74-106); LDH 160 U/L (84-246); Potassium 4.2 mmol/L (3.5-5.1); Protein, Total 7.4 g/dL (6.4-8.2); Sodium Level 139 mmol/L (136-145)
[2022-11-19 15:08] LABS: Aldolase 6.4 U/L (3.3-10.3)
== END | disposition home or self-care (01) ==
LOC: LAB 11:59
PROVIDERS: PCP Family Medicine; Referring Provider Internal Medicine Gastroenterology; Visit Provider Internal Medicine Gastroenterology
DX: R74.01 Elevation of levels of liver transaminase levels (principal)
CPT/HCPCS: 36415; 80053; 82085; 83615; 85025; 85652; 86140